=== PATIENT | male | born 1935 | race Caucasian/White ===

== ENCOUNTER → 2016-05-04 | Outpatient (CLI) | payer OTHER ==
[~2016-05-04] VITALS: Ht 177.8 cm; Wt 98.4 kg
[~2016-05-04] MED LIST: /TAMS4CA; AMLO10TA2 PO; AMLO10TAB; ASPI81TA63; ASPI81TA85 PO; BENI20TA11; CENT1TAB PO; LR 1,000 ML IV SCH; METF500T PO; VITA-115 PO
--- NOTE | 2016-05-04 13:22 | ROOR ---
Patient Name: Jamison Nicholas Procedure Date: 05/04/2016 12:35 PM Date of : 1935 Age: 80 Room: [facility] Gender: Male Note Status: Finalized Procedure: Colonoscopy Indications: Screening for colorectal malignant neoplasm, This is the patient's first colonoscopy Providers: Jamison Raman MD Referring MD: Danna Gurrola MD Requesting Provider: Medicines: Monitored Anesthesia Care Complications: No immediate complications. Procedure: Pre-Anesthesia Assessment: - Prior to the procedure, a History and Physical was performed, and patient medications and allergies were reviewed. The patient is competent. The risks and benefits of the procedure and the sedation options and risks were discussed with the patient. All questions were answered and informed consent was obtained. Patient identification and proposed procedure were verified by the physician, the nurse and the anesthesiologist in the procedure room. Mental Status Examination: alert and oriented. Airway Examination: normal oropharyngeal airway and neck mobility. CV Examination: regular rate and rhythm. Prophylactic Antibiotics: The patient does not require prophylactic antibiotics. Prior Anticoagulants: The patient has taken no previous anticoagulant or antiplatelet agents. ASA Grade Assessment: II - A patient with mild systemic disease. After reviewing the risks and benefits, the patient was deemed in satisfactory condition to undergo the procedure. The anesthesia plan was to use monitored anesthesia care (MAC). Immediately prior to administration of medications, the patient was re-assessed for adequacy to receive sedatives. The heart rate, respiratory rate, oxygen saturations, blood pressure, adequacy of pulmonary ventilation, and response to care were monitored throughout the procedure. The physical status of the patient was re-assessed after the procedure. The Colonoscope was introduced through the anus and advanced to the cecum, identified by appendiceal orifice and ileocecal valve. The colonoscopy was performed without difficulty. The patient tolerated the procedure well. The quality of the bowel preparation was good. Findings: The perianal and digital rectal examinations were normal. A few small-mouthed diverticula were found in the entire colon. Impression: - Diverticulosis in the entire examined colon. - No specimens collected. Recommendation: - Discharge patient to home. - Resume previous diet. - Continue present medications. - Return to endoscopist PRN. Jamison Raman MD 05/04/2016 1:21:45 PM Number of Addenda: 0 Note Initiated On: 05/04/2016 12:35 PM Estimated Blood Loss: Estimated blood loss: none.
[2016-05-04 13:47] VITALS: BP 111/67
== END | disposition home or self-care (01) ==
LOC: M OPP 10:37
PROVIDERS: ATTEND Surgery
DX: Z12.11 Encounter for screening for malignant neoplasm of colon (principal); K57.30 Diverticulosis of large intestine without perforation or abscess without bleeding; I12.9 Hypertensive chronic kidney disease with stage 1 through stage 4 chronic kidney disease, or unspecified chronic kidney disease; E11.9 Type 2 diabetes mellitus without complications; M19.90 Unspecified osteoarthritis, unspecified site; R06.83 Snoring; N18.3 Chronic kidney disease, stage 3 (moderate); R01.1 Cardiac murmur, unspecified; G62.9 Polyneuropathy, unspecified; Z79.84 Long term (current) use of oral hypoglycemic drugs; Z79.899 Other long term (current) drug therapy; Z87.891 Personal history of nicotine dependence; Z88.8 Allergy status to other drugs, medicaments and biological substances
CPT/HCPCS: 99156; 99157; G0121

== ENCOUNTER → 2016-08-31 | Day surgery (SDC) | payer OTHER ==
[~2016-08-31] VITALS: Ht 177.8 cm; Wt 98.0 kg
[~2016-08-31] MED LIST changes: +ACETAMINOPHEN 325 MG TAB PO PRN; +AcetaZOLAMIDE 500 MG ER CAP PO ONE; +BSS with VANC/TOB/EPI for EYE CASES IR ONE; +CEFUROXIME 1MG/0.1ML INTRACAMERAL INJ As Ordered ONE; +CYCLOPENTOLATE 2% OPHTH SOLN 2ML BTL As Ordered ONE; +CYCLOPENTOLATE 2% OPHTH SOLN 2ML BTL OD ONE; +HEALON DUET (HEALON 10MG/ML 0.55ML & HEALON ENDOCOAT 30MG/ML 0.85ML) As Ordered ONE; +KETOROLAC 0.5% OPHTH SOLN OD ONE; +LIDOCAINE 1% SDV 5 ML VIAL As Ordered ONE; +LIDOCAINE 4% INJ 5 ML AMP OU ONE; -LR 1,000 ML IV SCH; +LR 500 ML IV SCH; -METF500T PO; +METF500T13 PO; +METF500T4 PO; +MIDAZOLAM INJ 2 MG/2 ML VIAL (J2250) As Ordered ONE; +MOXIFLOXACIN IN BSS 0.25MG/0.25ML INTRACAMERAL INJ (OR EYE ONLY)(J2280) As Ordered ONE; +OFLOXACIN 0.3 % (OCUFLOX) OPTH SOL 5ML As Ordered ONE; +OFLOXACIN 0.3 % (OCUFLOX) OPTH SOL 5ML OD ONE; +PHENYLEPHRINE 2.5% OPHTH SOL 2ML As Ordered ONE; +PHENYLEPHRINE 2.5% OPHTH SOL 2ML OD ONE; +POVIDONE-IODINE 5% OPHTH PREP SOL 30ML As Ordered ONE; +PROPARACAINE 0.5% OPHTH SOL 15ML OD PRN; +TRIAMCINOLONE PRES FR 40 MG/ML 1ML(TRIESENCE)(OR EYE ONLY)(J3300 PER 1MG) As Ordered ONE; +TRIMETHOBENZAMIDE 300 MG CAP PO PRN; +TROPICAMIDE 1% OPHTH SOLN 2ML As Ordered ONE; +TROPICAMIDE 1% OPHTH SOLN 2ML OD ONE; +VALS320T PO; +fentaNYL 100 MCG/2 ML INJECTION (J3010) As Ordered ONE
[2016-08-31 09:35] VITALS: BP 154/72
== END | disposition home or self-care (01) ==
LOC: M SDC 06:42
PROVIDERS: ATTEND Ophthalmology
DX: H26.9 Unspecified cataract (principal); I10 Essential (primary) hypertension; R01.1 Cardiac murmur, unspecified; E11.9 Type 2 diabetes mellitus without complications; K42.9 Umbilical hernia without obstruction or gangrene; M17.12 Unilateral primary osteoarthritis, left knee; N28.9 Disorder of kidney and ureter, unspecified; Z79.899 Other long term (current) drug therapy; Z79.82 Long term (current) use of aspirin; Z79.84 Long term (current) use of oral hypoglycemic drugs; Z92.21 Personal history of antineoplastic chemotherapy; Z92.3 Personal history of irradiation; Z85.51 Personal history of malignant neoplasm of bladder
CPT/HCPCS: 66984; J2250; J2280; J3010; J3300; V2632

== ENCOUNTER → 2016-09-08 | Outpatient (REF) | payer OTHER ==
[~2016-09-08] MED LIST changes: -ACETAMINOPHEN 325 MG TAB PO PRN; -AcetaZOLAMIDE 500 MG ER CAP PO ONE; -BSS with VANC/TOB/EPI for EYE CASES IR ONE; -CEFUROXIME 1MG/0.1ML INTRACAMERAL INJ As Ordered ONE; -CYCLOPENTOLATE 2% OPHTH SOLN 2ML BTL As Ordered ONE; -CYCLOPENTOLATE 2% OPHTH SOLN 2ML BTL OD ONE; -HEALON DUET (HEALON 10MG/ML 0.55ML & HEALON ENDOCOAT 30MG/ML 0.85ML) As Ordered ONE; -KETOROLAC 0.5% OPHTH SOLN OD ONE; -LIDOCAINE 1% SDV 5 ML VIAL As Ordered ONE; -LIDOCAINE 4% INJ 5 ML AMP OU ONE; -LR 500 ML IV SCH; -MIDAZOLAM INJ 2 MG/2 ML VIAL (J2250) As Ordered ONE; -MOXIFLOXACIN IN BSS 0.25MG/0.25ML INTRACAMERAL INJ (OR EYE ONLY)(J2280) As Ordered ONE; -OFLOXACIN 0.3 % (OCUFLOX) OPTH SOL 5ML As Ordered ONE; -OFLOXACIN 0.3 % (OCUFLOX) OPTH SOL 5ML OD ONE; -PHENYLEPHRINE 2.5% OPHTH SOL 2ML As Ordered ONE; -PHENYLEPHRINE 2.5% OPHTH SOL 2ML OD ONE; -POVIDONE-IODINE 5% OPHTH PREP SOL 30ML As Ordered ONE; -PROPARACAINE 0.5% OPHTH SOL 15ML OD PRN; -TRIAMCINOLONE PRES FR 40 MG/ML 1ML(TRIESENCE)(OR EYE ONLY)(J3300 PER 1MG) As Ordered ONE; -TRIMETHOBENZAMIDE 300 MG CAP PO PRN; -TROPICAMIDE 1% OPHTH SOLN 2ML As Ordered ONE; -TROPICAMIDE 1% OPHTH SOLN 2ML OD ONE; -fentaNYL 100 MCG/2 ML INJECTION (J3010) As Ordered ONE
[2016-09-08 13:21] LABS: BASO # 0.1 K/mm3 (0.0-0.2); BASO % 0.7 % (0.0-1.0); EOS # 0.4 K/mm3 (0.0-0.50); EOS % 4.8 % (0.0-3.0); LARGE UNSTAINED CELL # 0.1 K/mm3 (0.0-0.4); LARGE UNSTAINED CELL % 1.4 % (0.0-4.0); LYMPH # 1.3 K/mm3 (1.5-4.5); LYMPH % 14.2 % (24.0-44.0); MEAN CORPUSCULAR HEMOGLOBIN 31.9 pg (27.0-33.0); MEAN CORPUSCULAR HGB CONC 34.2 g/dl (32.0-36.5); MEAN CORPUSCULAR VOLUME 93.1 fl (80.0-96.0); MONO # 0.6 K/mm3 (0.0-0.8); MONO % 6.6 % (0.0-5.0); NEUTROPHILS # 6.2 K/mm3 (1.8-7.7); NEUTROPHILS % 72.3 % (36.0-66.0); PLATELET COUNT, AUTOMATED 238 k/mm3 (150-450); RED CELL DISTRIBUTION WIDTH 13.1 % (11.5-14.5); WHITE BLOOD COUNT 8.6 K/mm3 (4.0-10.0)
[2016-09-08 14:18] LABS: ALBUMIN/GLOBULIN RATIO 1.25 (1.00-1.93); BILIRUBIN,TOTAL 0.7 MG/DL (0.2-1.0); CALCIUM LEVEL 9.3 MG/DL (8.8-10.2); CREATININE FOR GFR 1.52 MG/DL (0.70-1.30); POTASSIUM SERUM 4.4 MEQ/L (3.5-5.1); TOTAL PROTEIN 7.2 GM/DL (6.4-8.2)
== END ==
LOC: M LABDRAW1 12:53
PROVIDERS: ATTEND Family Medicine
DX: E11.22 Type 2 diabetes mellitus with diabetic chronic kidney disease (principal)

== ENCOUNTER → 2016-09-20 | Day surgery (SDC) | payer OTHER ==
[~2016-09-20] VITALS: Ht 179.1 cm; Wt 101.2 kg
[~2016-09-20] MED LIST changes: +ACETAMINOPHEN 325 MG TAB PO PRN; +AcetaZOLAMIDE 500 MG ER CAP PO ONE; +BSS with VANC/TOB/EPI for EYE CASES IR ONE; +CYCLOPENTOLATE 2% OPHTH SOLN 2ML BTL OS ONE; +HEALON DUET (HEALON 10MG/ML 0.55ML & HEALON ENDOCOAT 30MG/ML 0.85ML) As Ordered ONE; +KETOROLAC 0.5% OPHTH SOLN OS ONE; +LIDOCAINE 1% SDV 5 ML VIAL As Ordered ONE; +LIDOCAINE 4% INJ 5 ML AMP OU ONE; +LR 1,000 ML IV ONE; +MIDAZOLAM INJ 2 MG/2 ML VIAL (J2250) As Ordered ONE; +MOXIFLOXACIN IN BSS 0.25MG/0.25ML INTRACAMERAL INJ (OR EYE ONLY)(J2280) As Ordered ONE; +OFLOXACIN 0.3 % (OCUFLOX) OPTH SOL 5ML OS ONE; +PHENYLEPHRINE 2.5% OPHTH SOL 2ML OS ONE; +POVIDONE-IODINE 5% OPHTH PREP SOL 30ML As Ordered ONE; +PROPARACAINE 0.5% OPHTH SOL 15ML OS PRN; +TRIAMCINOLONE PRES FR 40 MG/ML 1ML(TRIESENCE)(OR EYE ONLY)(J3300 PER 1MG) As Ordered ONE; +TRIMETHOBENZAMIDE 300 MG CAP PO PRN; +TROPICAMIDE 1% OPHTH SOLN 2ML OS ONE; +fentaNYL 100 MCG/2 ML INJECTION (J3010) As Ordered ONE
[2016-09-20 12:25] VITALS: BP 125/59
== END | disposition home or self-care (01) ==
LOC: M SDC 10:00
PROVIDERS: ATTEND Ophthalmology
DX: H25.9 Unspecified age-related cataract (principal); E11.22 Type 2 diabetes mellitus with diabetic chronic kidney disease; I10 Essential (primary) hypertension; Z92.3 Personal history of irradiation; I73.9 Peripheral vascular disease, unspecified; Z79.82 Long term (current) use of aspirin; Z79.899 Other long term (current) drug therapy
CPT/HCPCS: 66984; 67515; J2250; J2280; J3010; J3300; V2632

== ENCOUNTER → 2017-05-24 | Outpatient (REF) | payer OTHER | LOC: M SMT 17:09 | DX: Z08 Encounter for follow-up examination after completed treatment for malignant neoplasm (principal); Z85.51 Personal history of malignant neoplasm of bladder | CPT/HCPCS: 88108 ==

== ENCOUNTER → 2017-11-22 | Outpatient (REF) | payer OTHER ==
[2017-11-22 13:42] LABS: BASO # 0.1 10^3/uL (0.0-0.2); BASO % 0.8 % (0.0-1.0); EOS # 0.5 10^3/uL (0.0-0.50); EOS % 5.4 % (0.0-3.0); HEMATOCRIT 45.7 % (42.0-52.0); HEMOGLOBIN 15.6 g/dl (13.5-17.5); IMMATURE GRANULOCYTE % 0.4 % (0-3.0); LYMPH # 1.2 10^3/uL (1.5-4.5); LYMPH % 14.3 % (24.0-44.0); MEAN CORPUSCULAR HEMOGLOBIN 31.3 pg (27.0-33.0); MEAN CORPUSCULAR HGB CONC 34.1 g/dl (32.0-36.5); MEAN CORPUSCULAR VOLUME 91.6 fl (80.0-96.0); MONO # 0.7 10^3/uL (0.0-0.8); MONO % 8.2 % (0.0-5.0); NEUTROPHILS # 5.9 10^3/uL (1.8-7.7); NEUTROPHILS % 70.9 % (36.0-66.0); PLATELET COUNT, AUTOMATED 271 10^3/uL (150-450); RED BLOOD COUNT 4.99 10^6/uL (4.30-6.10); RED CELL DISTRIBUTION WIDTH 13.2 % (11.5-14.5); WHITE BLOOD COUNT 8.3 10^3/uL (4.0-10.0)
[2017-11-22 14:14] LABS: ALBUMIN/GLOBULIN RATIO 1.21 (1.00-1.93); ALKALINE PHOSPHATASE 72 U/L (45-117); ALT/SGPT 72 U/L (12-78); ANION GAP 11 MEQ/L (8-16); AST/SGOT 52 U/L (7-37); BILIRUBIN,TOTAL 0.8 MG/DL (0.2-1.0); BLOOD UREA NITROGEN 31 MG/DL (7-18); CALCIUM LEVEL 9.3 MG/DL (8.8-10.2); CARBON DIOXIDE LEVEL 23 MEQ/L (21-32); CHLORIDE LEVEL 104 MEQ/L (98-107); CHOLESTEROL LEVEL 171 MG/DL (<200); CHOLESTEROL RISK RATIO 3.562 (<5); CREATININE FOR GFR 1.55 MG/DL (0.70-1.30); GLOMERULAR FILTRATION RATE 45.8 (>35); GLUCOSE, FASTING 110 MG/DL (70-100); HDL CHOLESTEROL 48 MG/DL (>40); LDL CHOLESTEROL 70 MG/DL (<100); NON-HDL-C 123 MG/DL; POTASSIUM SERUM 4.1 MEQ/L (3.5-5.1); SODIUM LEVEL 138 MEQ/L (136-145); TOTAL PROTEIN 7.3 GM/DL (6.4-8.2); TRIGLYCERIDES LEVEL 263 MG/DL (<150)
[2017-11-22 15:07] LABS: MAU/CREAT RATIO 241.5 MCG/MG (0.0-30.0)
[2017-11-22 15:12] LABS: ESTIMATED AVERAGE GLUCOSE 117 MG/DL (60-110); HEMOGLOBIN A1c 5.7 %
== END ==
LOC: M LABDRAW1 13:29
DX: E11.22 Type 2 diabetes mellitus with diabetic chronic kidney disease (principal)
CPT/HCPCS: 80053

== ENCOUNTER 2018-04-24 20:04 | Emergency (ER) | payer MEDICARE, OTHER ==
[~2018-04-24] VITALS: Ht 175.3 cm; Wt 100.0 kg
[~2018-04-24 20:04] MED LIST changes: -ACETAMINOPHEN 325 MG TAB PO PRN; -AMLO10TA2 PO; +AMLO10TA5 PO; -AcetaZOLAMIDE 500 MG ER CAP PO ONE; -BSS with VANC/TOB/EPI for EYE CASES IR ONE; -CYCLOPENTOLATE 2% OPHTH SOLN 2ML BTL OS ONE; -HEALON DUET (HEALON 10MG/ML 0.55ML & HEALON ENDOCOAT 30MG/ML 0.85ML) As Ordered ONE; -KETOROLAC 0.5% OPHTH SOLN OS ONE; -LIDOCAINE 1% SDV 5 ML VIAL As Ordered ONE; -LIDOCAINE 4% INJ 5 ML AMP OU ONE; -LR 1,000 ML IV ONE; -MIDAZOLAM INJ 2 MG/2 ML VIAL (J2250) As Ordered ONE; -MOXIFLOXACIN IN BSS 0.25MG/0.25ML INTRACAMERAL INJ (OR EYE ONLY)(J2280) As Ordered ONE; -OFLOXACIN 0.3 % (OCUFLOX) OPTH SOL 5ML OS ONE; -PHENYLEPHRINE 2.5% OPHTH SOL 2ML OS ONE; -POVIDONE-IODINE 5% OPHTH PREP SOL 30ML As Ordered ONE; -PROPARACAINE 0.5% OPHTH SOL 15ML OS PRN; -TRIAMCINOLONE PRES FR 40 MG/ML 1ML(TRIESENCE)(OR EYE ONLY)(J3300 PER 1MG) As Ordered ONE; -TRIMETHOBENZAMIDE 300 MG CAP PO PRN; -TROPICAMIDE 1% OPHTH SOLN 2ML OS ONE; -fentaNYL 100 MCG/2 ML INJECTION (J3010) As Ordered ONE
[2018-04-24] MEDS ORDERED: NAPROXEN 250 MG TAB PO ONE (20:15)
[2018-04-24] MEDS ORDERED: NAPR-50 PO (21:32)
[2018-04-24] MEDS ORDERED: ROLLMIS2 XX (21:32)
[2018-04-24 22:19] VITALS: BP 130/56
--- NOTE | 2018-04-25 01:43 | REP ---
Clinical: Pain and swelling. Technique: AP, lateral, bilateral oblique and sunrise views of the left knee. Findings: Advanced tricompartmental osteoarthritic degenerative changes are appreciated. Findings include subchondral sclerosis, osteophytosis, chondrocalcinosis and predominately medial joint space narrowing. The patella has a bipartite appearance versus old fracture. There is no evidence for acute fracture or dislocation. Lateral view suggests a moderate effusion. Associated peripheral vascular disease identified. Impression: Advanced osteoarthritic degenerative changes. Lateral view demonstrates moderate effusion. No acute fracture or dislocation. Electronically Signed by Jb Duran MD 04/25/2018 01:35 A
== END 2018-04-24 22:21 | disposition home or self-care (01) ==
LOC: M ED 20:04 → EDBD 20:04 → M ED 22:21
DX: M17.12 Unilateral primary osteoarthritis, left knee (principal); M25.462 Effusion, left knee; I11.9 Hypertensive heart disease without heart failure; E11.9 Type 2 diabetes mellitus without complications; Z79.899 Other long term (current) drug therapy; Z79.82 Long term (current) use of aspirin; Z79.84 Long term (current) use of oral hypoglycemic drugs

== ENCOUNTER → 2018-07-05 | Outpatient (REF) | payer MEDICARE ==
[~2018-07-05] MED LIST changes: -/TAMS4CA; +FLOM0.4C39; +NAPR-837 PO; +ROLLMIS2 XX
[2018-07-05 19:06] LABS: ALBUMIN 3.9 GM/DL (3.2-5.2); PERCENT SATURATION 30.6 % (19.7-50.0)
== END ==
LOC: M LABDRAW1 14:18
PROVIDERS: ATTEND Orthopaedic Surgery Adult Reconstructive Orthopaedic Surgery
DX: M25.562 Pain in left knee (principal)

== ENCOUNTER → 2018-08-24 | Outpatient (CLI) | payer MEDICARE ==
--- NOTE | 2018-08-24 17:47 | ECHO ---
DATE OF PROCEDURE: 08/24/2018 REFERRING PHYSICIAN: Dr. Danna Gurrola INDICATION: Heart murmur. Height 5 feet 10 inches, weight 224 pounds. DIMENSIONS: IVS: 1.1 LV: 4.7 LVPW: 1.1 LA: 3.0 Aorta: 3.3 IVC: 2.3 Mitral E wave velocity: 93 A wave: 135 E prime septal: 5.8 E prime lateral: 7.5 FINDINGS: The study is of acceptable technical quality. The patient is in sinus rhythm. Left ventricle is of normal size and systolic function. I estimate left ventricular ejection fraction (LVEF) around 65-70%. No segmental wall motion abnormalities are noted. Right ventricle appears normal. Left atrium appears at least mildly enlarged. Right atrium appears normal. Aortic valve is heavily sclerotic. By 2D imaging, there is at least mild restriction of cusp mobility. Mitral valve also exhibits degenerative abnormalities with mitral annular calcifications. Tricuspid and pulmonic valves were poorly visualized but grossly appear normal. No pericardial effusion is noted. Inferior vena cava is dilated. I cannot comment on it collapse with respiration as it has not been documented. Aortic root appears normal. Aortic arch and abdominal aorta were not visualized. Doppler interrogation of aortic valve reveals trace insufficiency and approximately moderate stenosis (mean gradient 26, peak gradient 44, calculated SIMI 1.1 cm2). No additional significant valvular disease. Conclusions: 1. The study is of acceptable technical quality 2. Normal LV size with hyperdynamic LV systolic function and grade I diastolic dysfunction. 3. Moderate aortic stenosis (mean gradient 26mmHg, calculated SIMI 1.1cm 2). 4. No further valvular disease. 5. Possibly elevated central venous pressure. 6. Unable to determine pulmonary artery pressure. COMMENT: Subacute bacterial endocarditis (SBE) is not recommended. Follow up in 1 year or with development of symptoms is recommended. [facility]
== END ==
LOC: M CARPUL 11:16
PROVIDERS: ATTEND Family Medicine
DX: I35.0 Nonrheumatic aortic (valve) stenosis (principal); R01.1 Cardiac murmur, unspecified

== ENCOUNTER → 2019-02-13 | Outpatient (REF) | payer MEDICARE ==
[~2019-02-13] MED LIST changes: +METF-791 PO; -METF500T4 PO
[2019-02-13 16:43] LABS: BASO # 0.1 10^3/uL (0.0-0.2); BASO % 1.2 % (0.0-1.0); EOS # 0.9 10^3/uL (0.0-0.5); EOS % 8.4 % (0.0-3.0); HEMOGLOBIN 15.2 g/dl (13.5-17.5); LYMPH # 1.3 10^3/uL (1.5-5.0); LYMPH % 12.9 % (24.0-44.0); MEAN CORPUSCULAR HEMOGLOBIN 30.1 pg (27.0-33.0); MEAN CORPUSCULAR VOLUME 91.1 fl (80.0-96.0); MONO # 0.7 10^3/uL (0.0-0.8); NEUTROPHILS # 7.1 10^3/uL (1.5-8.5); NEUTROPHILS % 70.1 % (36.0-66.0); PLATELET COUNT, AUTOMATED 292 10^3/uL (150-450); RED BLOOD COUNT 5.05 10^6/uL (4.30-6.10); WHITE BLOOD COUNT 10.2 10^3/uL (4.0-10.0)
[2019-02-13 16:50] LABS: ALBUMIN 3.9 GM/DL (3.2-5.2); BILIRUBIN,TOTAL 0.7 MG/DL (0.2-1.0); CALCIUM LEVEL 9.6 MG/DL (8.8-10.2); CHOLESTEROL RISK RATIO 3.744 (<5); CREATININE FOR GFR 1.65 MG/DL (0.70-1.30); GLOMERULAR FILTRATION RATE 42.5 (>35); POTASSIUM SERUM 4.5 MEQ/L (3.5-5.1); TOTAL PROTEIN 7.3 GM/DL (6.4-8.2)
[2019-02-13 17:10] LABS: CREATININE, URINE 88.6 MG/DL; MAU/CREAT RATIO 200.9 MCG/MG (0.0-30.0)
== END ==
LOC: M LABDRAW1 15:50
PROVIDERS: ATTEND Family Medicine
DX: E11.69 Type 2 diabetes mellitus with other specified complication (principal)

== ENCOUNTER → 2020-03-31 | Outpatient (REF) | payer MEDICARE ==
[~2020-03-31] MED LIST changes: -AMLO10TA5 PO; +AMLO1TAB25 PO; -ASPI81TA85 PO; +ASPI81TA86 PO; -METF-791 PO; +METF-838 PO; -VALS320T PO; +VALS320T2 PO
[2020-03-31 18:39] LABS: HEMOGLOBIN A1c 5.7 %
[2020-03-31 18:43] LABS: ALBUMIN 3.8 GM/DL (3.2-5.2); BILIRUBIN,TOTAL 0.5 MG/DL (0.2-1.0); CALCIUM LEVEL 9.6 MG/DL (8.8-10.2); CHOLESTEROL RISK RATIO 4.25 (<5); CREATININE FOR GFR 1.77 MG/DL (0.70-1.30); GLOMERULAR FILTRATION RATE 39.1 (>35); POTASSIUM SERUM 4.6 MEQ/L (3.5-5.1)
[2020-03-31 19:17] LABS: MAU/CREAT RATIO 425.7 MCG/MG (0.0-30.0)
== END ==
LOC: M LABDRWAD 17:44
PROVIDERS: ATTEND Physician Assistant Medical
DX: E11.69 Type 2 diabetes mellitus with other specified complication (principal)

== ENCOUNTER 2020-06-14 05:06 | Inpatient (IN) | payer MEDICARE ==
[~2020-06-14] VITALS: Ht 177.8 cm; Wt 103.8 kg
[2020-06-14] MEDS ORDERED: ONDANSETRON 4MG/2ML VIAL IV ONE (05:55)
[2020-06-14] MEDS ORDERED: MORPHINE 4 MG/ML 1ML VIAL/SYRINGE (J2270) IV ONE (05:55)
[2020-06-14] MEDS ORDERED: GI COCKTAIL 50ML BTL(HYOSCYAMINE/MAALOX/LIDOCAINE VISCOUS)(1:3:1) PO ONE (05:55)
[2020-06-14 06:06] LABS: BASO # 0.1 10^3/uL (0.0-0.2); BASO % 0.6 % (0.0-1.0); EOS % 0.1 % (0.0-3.0); HEMATOCRIT 49.5 % (42.0-52.0); HEMOGLOBIN 16.4 g/dl (13.5-17.5); LYMPH # 0.5 10^3/uL (1.5-5.0); LYMPH % 4.8 % (24.0-44.0); MEAN CORPUSCULAR HEMOGLOBIN 30.5 pg (27.0-33.0); MEAN CORPUSCULAR HGB CONC 33.1 g/dl (32.0-36.5); MONO # 0.2 10^3/uL (0.0-0.8); MONO % 2.1 % (2.0-8.0); NEUTROPHILS # 9.7 10^3/uL (1.5-8.5); PLATELET COUNT, AUTOMATED 257 10^3/uL (150-450); RED BLOOD COUNT 5.38 10^6/uL (4.30-6.10); WHITE BLOOD COUNT 10.5 10^3/uL (4.0-10.0)
[2020-06-14 06:18] LABS: ALT/SGPT 35 U/L (12-78); AMYLASE 77 U/L (25-115); BILIRUBIN,DIRECT 0.1 MG/DL (0.0-0.2); BILIRUBIN,TOTAL 0.4 MG/DL (0.2-1.0); BLOOD UREA NITROGEN 32 MG/DL (7-18); CARBON DIOXIDE LEVEL 25 MEQ/L (21-32); CHLORIDE LEVEL 106 MEQ/L (98-107); CK-MB VALUE MASS 8.4 NG/ML (<3.6); CPK CREATINE PHOSPHOKINASE 565 U/L (39-308); CREATININE FOR GFR 1.66 MG/DL (0.70-1.30); GLOMERULAR FILTRATION RATE 42.1 (>35); GLUCOSE, FASTING 192 MG/DL (70-100); LIPASE 231 U/L (73-393); MB/CK RELATIVE INDEX 1.49 (< OR =4); POTASSIUM SERUM 4.2 MEQ/L (3.5-5.1); SODIUM LEVEL 139 MEQ/L (136-145); TOTAL PROTEIN 7.6 GM/DL (6.4-8.2); TROPONIN I < 0.02 NG/ML (< 0.10)
[2020-06-14] MEDS ORDERED: NS 1,000 ML IV ONE (06:25)
[2020-06-14] MEDS ORDERED: ISOVUE-370 76% 100ML VIAL As Ordered ONE (06:31)
--- NOTE | 2020-06-14 07:49 | REPVR ---
PROCEDURE INFORMATION: Exam: CT Abdomen With Contrast Exam date and time: 06/14/2020 5:51 AM Age: 84 years old Clinical indication: Abdominal pain; Generalized; Additional info: Abdominal pain and ttp midline, known ventral hernia TECHNIQUE: Imaging protocol: Computed tomography images of the abdomen with intravenous contrast. Radiation optimization: All CT scans at this facility use at least one of these dose optimization techniques: automated exposure control; mA and/or kV adjustment per patient size (includes targeted exams where dose is matched to clinical indication); or iterative reconstruction. Contrast material: ISO; Contrast volume: 75 ml; Contrast route: INTRAVENOUS (IV); COMPARISON: No relevant prior studies available. FINDINGS: Lungs: There is bilateral basilar, right more than left atelectatic changes versus infiltrates with peribronchial thickening. Heart: There is significant calcification of the mitral annulus and some calcification at the aortic root. Liver: The liver is hypoattenuated. Gallbladder and bile ducts: Normal. No calcified stones. No ductal dilation. Pancreas: Normal. No ductal dilation. Spleen: There are some punctate splenic calcifications. Adrenals: Normal. No mass. Kidneys and ureters: There is left renal atrophy with significant dilatation of the left renal pelvis and nondistended urinary bladder possibly due to UPJ obstruction. There is 3 mm right upper renal pole stone versus vascular calcification. Stomach and bowel: There is mild transverse and severe descending and sigmoid colon diverticulosis. Intraperitoneal space: Unremarkable. No free air. No significant fluid collection. Lymph nodes: Unremarkable. No enlarged lymph nodes. Vasculature: Unremarkable. No abdominal aortic aneurysm. Bladder: There is moderate distention of the urinary bladder. There is nonspecific thickening versus layering material in the posterior urinary bladder in the region of the trigone. There is 4.5 cm right posterolateral urinary bladder wall diverticula. Reproductive: The prostate gland is enlarged measuring 5.3 by 3.0 cm with prominence in the region of the proximal prostatic urethra. Bones/joints: There is significant multilevel lumbar and thoracic spine DJD. Soft tissues: There is 5.5 x 3.2 cm umbilical fat containing hernia. There is small left inguinal fat containing hernia. IMPRESSION: 1. Enlarged prostate gland. Correlate with clinical history, physical exam and PSA level. 2. Moderate to significant distention of the urinary bladder with right posterolateral urinary bladder wall diverticulum. Correlate for clinically for bladder outlet obstruction. 3. Prominent prostatic urethra which could be due to obstruction from the enlarged prostate gland and outlet obstruction or secondary to TURP changes. 4. Thickening vs faint layering filling defect in the posterior urinary bladder in the region of the trigone. This could represent blood or filling defect. Correlation with urinalysis, bladder ultasound and,or direct visualization with cystoscopy are suggested. 5. 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 6. Nonobstructing 3 mm right upper renal pole stone versus vascular calcification. 7. Mild fatty infiltration of the liver. 8. 5.5 x 3.2 cm umbilical fat containing hernia. 9. Small left inguinal fat containing hernia. 10. Mild transverse and severe descending and sigmoid colon diverticulosis. 11. Significant bilateral lower lobes, right more than left atelectatic changes versus infiltrates with peribronchial thickening. Electronically signed by: Alex Spence On 06/14/2020 07:49:42 AM
[2020-06-14] MEDS ORDERED: COMBIVENT RESPIMAT 100-20MCG INHALER 4GM INH STA (08:58)
[2020-06-14] MEDS ORDERED: LIDOCAINE 2% 5ML JELLY UROJET TOP ONE (09:20)
--- NOTE | 2020-06-14 09:35 | ECGEPIP ---
[facility] - ED Test Date: 2020-06-14 Pat Name: CÉSAR SALGADO Department: Room: - Gender: Male [employer] Operator: RETA : 1935 Requested By: Reno Felipe Order Number: [id number] Reading MD: Iftikhar Chicas Measurements Intervals [place] Rate: 95 P: 44 IN: 192 QRS: -40 QRSD: 102 T: 56 QT: 374 QTc: 469 Interpretive Statements Normal sinus rhythm Left axis deviation POOR R WAVE PROGRESSION Minimal voltage criteria for LVH, may be normal variant ( Ben product ) Nonspecific ST abnormality NO PRIORS FOR COMPARISON Electronically Signed on 06-14-2020 9:35:33 EDT by Iftikhar Chicas
[2020-06-14 09:39] LABS: NT-PRO BNP 555 PG/ML (<450)
[2020-06-14] MEDS ORDERED: LevoFLOXacin IV 750 MG in IV 1 EA IV ONE (09:50)
--- NOTE | 2020-06-14 10:09 | REP ---
INDICATION: hypoxia. COMPARISON: 10/11/2007. TECHNIQUE: SINGLE PORTABLE AP VIEW OF THE CHEST WAS PERFORMED. FINDINGS: There is very mild patchy parenchymal opacity in each lung base representing very mild atelectasis/infiltrate. There is mild cardiomegaly. There is mild calcification and ectasia of the thoracic aorta. Visualized osseous structures appear unremarkable. IMPRESSION: Very mild bibasilar atelectasis/infiltrate. Mild cardiomegaly. <Electronically signed by Matty Fernández > 06/14/20 [id number]
[2020-06-14] MEDS ORDERED: ASPI81TA26 PO (10:33)
[2020-06-14] MEDS ORDERED: CHOL400T PO (10:33)
[2020-06-14] MEDS ORDERED: GLUCOSE 4GM CHEW TABLET PO PRN (10:35)
[2020-06-14] MEDS ORDERED: DEXTROSE 50% 50 ML SYRINGE IV PRN (10:35)
[2020-06-14] MEDS ORDERED: GLUCAGON INJ 1MG VIAL SC PRN (10:35)
[2020-06-14] MEDS ORDERED: NS 1,000 ML IV SCH (11:05)
--- NOTE | 2020-06-14 11:19 | HPEPDOC ---
General Date of Admission Jun 14, 2020 Date of Service: Jun 14, 2020 Chief Complaint The patient is a 84-year-old male admitted with a reason for visit of Abd Pain. Source: Patient, RN/MD History of Present Illness Mr. Nicholas is an 84 year old male with DM and history of bladder cancer who presents with abdominal pain, but then found to have hypoxia 2/2 pneumonia. Last evening, he had a milkshake, then about 30mins later at 7:30PM he started to have nausea. He went home and had nonbloody emesis multiple times. He also developed sharp and continuous, epigastric abdominal pain. Pain was worse with food. He came to the ED for evaluation. He had a CT abdomen and pelvis with IV contrast which demonstrated significant bladder distension. Soto catheter was placed which drained 1200mL of clear liquid urine. There was no blood. UA positive for 1+ blood and microscopy had 2 RBC which may be related to Soto trauma. His abdominal pain resolved He stood up and he desaturated down to 86%. He required 2L of oxygen to maintain saturation. CT abd/pelvis did demonstrate bibasilar infiltrate vs atelectasis. CXR demonstrates same. He does have leukocytosis with neutrophil predominance. Denies sick contacts. He had Moderna COVID vaccination in April and May. Patient will be admitted for hypoxia secondary to pneumonia Home Medications Scheduled Amlodipine Besylate (Amlodipine Besylate) 10 Mg Tab, 10 MG PO DAILY, (Reported) Aspirin (Aspirin EC) 81 Mg Tablet.dr, 81 MG PO DAILY, (Reported) Cholecalciferol (Vitamin D3) (Vitamin D3) 10 Mcg Tablet, 10 MCG PO DAILY, (Reported) Metformin HCl (Metformin HCl ER) 500 Mg Tab, 500 MG PO DAILY, (Reported) AFTER DINNER Multivit-Min/FA/Lycopen/Lutein (Centrum Silver Tablet) 1 Tab Tab, 1 TAB PO QAM, (Reported) Valsartan/Hydrochlorothiazide (Valsartan-Hctz 320-12.5 mg Tab) 1 Tab Tab, 1 TAB PO QHS, (Reported) Allergies Coded Allergies: No Known Allergies (Unverified , 09/20/16) Past Medical History Medical History 1. Hypertension 2. Arthritis 3. Non-insulin dependent diabetes mellitus 4. Bladder cancer Surgical History 1. Cystoscopy 2. Left knee replaced Family History Father: at 38 yo. from PNA Mother: at 78 yo. Unknown cause to passing Social History * Smoker: former Smoker (Quit in 2012. Smoked Cigars) Alcohol: Denies Drugs: denies A-FIB/CHADSVASC A-FIB History Current/History of A-Fib/PAF?: No Review of Systems Constitutional: Denies: Chills, Fever Eyes: Denies: Vision change ENT: Denies: Sore Throat Skin: Denies: Rash Pulmonary: Denies: Dyspnea, Cough Cardiovascular: Denies: Chest Pain Gastrointestinal: Reports: Nausea (now resolved), Vomiting (multiple times), Abdominal Pain (now resolved) Genitourinary: Denies: Dysuria Hematologic: Denies: Bruising Neurological: Denies: Numbness Psych: Denies: Anxiety, Depression Physical Examination General Exam: Positive: Alert, Cooperative Eye Exam: Positive: EOMI; Negative: Sclera icteric ENT Exam: Positive: Atraumatic Neck Exam: Positive: Supple Chest Exam: Positive: Diminished, Other (coarse) Heart Exam: Positive: Rate Normal, Regular Rhythm, Murmurs (Known murmur) Abdomen Exam: Positive: Normal bowel sounds, Soft, Other (Umbilical hernia); Negative: Tenderness Extremity Exam: Negative: Edema Neuro Exam: Positive: Normal Speech, Cranial Nerves 3-12 NL Psych Exam: Positive: Mental status NL, Mood NL Vital Signs Vital Signs Date Time Temp Pulse Resp B/P (MAP) Pulse Ox O2 Delivery O2 Flow Rate FiO2 06/14/20 07:38 97.7 90 16 94 Nasal Cannula 2.0 06/14/20 07:30 161/72 (101) Laboratory Data Labs 24H Laboratory Tests 2 06/14/20 05:29: Immature Granulocyte % (Auto) 0.4, Neutrophils (%) (Auto) 92.0H, Lymphocytes (%) (Auto) 4.8L, Monocytes (%) (Auto) 2.1, Eosinophils (%) (Auto) 0.1, Basophils (%) (Auto) 0.6, Neutrophils # (Auto) 9.7H, Lymphocytes # (Auto) 0.5L, Monocytes # (Auto) 0.2, Eosinophils # (Auto) 0.0, Basophils # (Auto) 0.1, Nucleated Red Bl ood Cells % (auto) 0.0, Anion Gap 8, Glomerular Filtration Rate 42.1, Lactic Acid Level 2.7*H, Calcium Level 9.0, Total Bilirubin 0.4, Direct Bilirubin 0.1, Aspartate Amino Transf (AST/SGOT) 31, Alanine Aminotransferase (ALT/SGPT) 35, Alkaline Phosphatase 96, Total Creatine Kinase 565H, Creatine Kinase MB 8.4H, Creatine Kinase MB Relative Index 1.49, Troponin I < 0.02, ZD-Ljp-Y-Type Natriuretic Peptide 555H, Total Protein 7.6, Albumin 4.0, Albumin/Globulin Ratio 1.1, Amylase Level 77, Lipase 231 06/14/20 09:23: Urine Color YELLOW, Urine Appearance HAZY, Urine pH 7.0, Urine Specific [place]romas 1.025, Urine Protein 2+H, Urine Glucose (UA) NEGATIVE, Urine Ketones NEGATIVE, Urine Blood 1+H, Urine Nitrite NEGATIVE, Urine Bilirubin NEGATIVE, Urine Urobilinogen 0.2, Urine Leukocyte Esterase 1+H, Urine WBC (Auto) 16H, Urine RBC (Auto) 2, Urine Hyaline Casts (Auto) 0, Urine Bacteria (Auto) NEGATIVE, Urine Squamous Epithelial Cells 0, Urine Sperm (Auto) CBC/BMP Laboratory Tests 06/14/20 05:29 Microbiology Microbiology 06/14/20 Respiratory Virus Panel (PCR) ([facility]) - Final, Complete 06/14/20 Urine Culture, Received Pending 06/14/20 Blood Culture, Received Pending 06/14/20 Blood Culture, Received Pending Assessment/Plan Mr. Nicholas is an 84 year old male with DM and history of bladder cancer who presents with abdominal pain, but then found to have hypoxia 2/2 pneumonia. Patient will be given supplemental oxygen for hypoxia and wean as tolerated. Patient will also be started on renally dosed levofloxacin for the pneumonia. Otherwise, he does have acute urinary retention. Placed catheter and tamsulosin. Patient has seen urology in past and will most likely need to follow up with Urology outpatient. Plan / VTE VTE Prophylaxis Ordered?: Yes Plan Plan 1. Hypoxia 2/2 CAP -Leukocytosis with neurophil predominance and hypoxia -Bibasilar infiltrate -Supplemental oxygen and wean as tolerated -Renally dosed levofloxacin 2. Abdominal pain -Resolved after draining bladder 3. Acute urinary retention -Soto placed and drained 1200mL -Patient will need to follow up with urology outpatient -Start tamsulosin 4. Hypertension -Continue amlodipine, HCTZ, and valsartan 5. CKD -Creatinine at baseline -IVF as patient had contrast study today 6. DM -Hold metformin -Insulin sliding scale 7. DVT ppx -Heparin subQ due to CKD Disposition: pending improvement in respiratory status VERONICA GILL DO Jun 14, 2020 11:19
[2020-06-14] MEDS: ASPIRIN 81MG ENTERIC TABLET PO SCH (11:28)
[2020-06-14] MEDS: MULTIVITAMINS/MINERALS THERAP 1 TAB PO SCH (11:28)
[2020-06-14] MEDS: HumaLOG INSULIN (NovoLOG) PER UNIT SC SCH ×3 (12:00→20:01)
[2020-06-14 13:00] VITALS: BP 137/76
[2020-06-14] MEDS: HEPARIN SOD (PORCINE) 5000UNITS/ML 1ML VIAL/SYRINGE SQ SCH ×2 (16:49→20:51)
[2020-06-14] MEDS ORDERED: NS 500 ML IV ONE (18:25)
[2020-06-14] MEDS: ONDANSETRON 4MG/2ML VIAL IV PRN (18:50)
[2020-06-14] MEDS: hydroCHLOROthiazide 12.5 MG CAPSULE PO SCH (20:50)
[2020-06-14] MEDS: VALSARTAN 80 MG TAB (DIOVAN) PO SCH (20:50)
[2020-06-14] MEDS: TAMSULOSIN 0.4 MG CAP PO SCH (20:51)
[2020-06-14 22:00] VITALS: BP 120/67
[2020-06-15 06:00] VITALS: BP 123/66
[2020-06-15 06:10] LABS: HEMATOCRIT 46.6 % (42.0-52.0); HEMOGLOBIN 15.6 g/dl (13.5-17.5); MEAN CORPUSCULAR HEMOGLOBIN 30.8 pg (27.0-33.0); MEAN CORPUSCULAR HGB CONC 33.5 g/dl (32.0-36.5); MEAN CORPUSCULAR VOLUME 92.1 fl (80.0-96.0); PLATELET COUNT, AUTOMATED 239 10^3/uL (150-450); RED BLOOD COUNT 5.06 10^6/uL (4.30-6.10); WHITE BLOOD COUNT 16.5 10^3/uL (4.0-10.0)
[2020-06-15 06:28] LABS: CREATININE FOR GFR 1.6 MG/DL (0.70-1.30); POTASSIUM SERUM 3.9 MEQ/L (3.5-5.1)
[2020-06-15] MEDS: HumaLOG INSULIN (NovoLOG) PER UNIT SC SCH ×5 (07:30→21:00)
[2020-06-15] MEDS: MULTIVITAMINS/MINERALS THERAP 1 TAB PO SCH (08:21)
[2020-06-15] MEDS: ASPIRIN 81MG ENTERIC TABLET PO SCH (08:21)
[2020-06-15] MEDS: HEPARIN SOD (PORCINE) 5000UNITS/ML 1ML VIAL/SYRINGE SQ SCH ×3 (08:22→21:09)
[2020-06-15] MEDS: ONDANSETRON 4MG/2ML VIAL IV PRN (08:26)
[2020-06-15] MEDS ORDERED: MIRALAX *UNIT DOSE* 17GM PACKET PO PRN (09:15)
[2020-06-15] MEDS ORDERED: FUROSEMIDE 20MG/2ML VIAL (J1940) IV ONE (09:15)
[2020-06-15] MEDS: DOCUSATE SODIUM 100MG CAPSULE PO SCH ×2 (09:55→21:08)
[2020-06-15] MEDS: DOXYCYCLINE HYCLATE 100 MG in D5W MINI-BAG PLUS 100 ML IV SCH ×2 (09:55→21:08)
[2020-06-15] MEDS: cefTRIAXone SOD 1 GM in D5W MINI-BAG PLUS 50 ML IV SCH (11:58)
[2020-06-15 14:00] VITALS: BP 140/62
--- NOTE | 2020-06-15 18:49 | IPNPDOC ---
Subjective Date Seen The patient was seen on 06/15/20. Subjective Chief Complaint/HPI Mr. Nicholas is an 84 year old male with DM and history of bladder cancer who presents with abdominal pain, but then found to have hypoxia 2/2 pneumonia. This morning, he denies any chest pain or dyspnea. He still required 3L this morning. but is being weaned throughout the day. Objective Physical Examination General Exam: Positive: Alert, Cooperative Eye Exam: Positive: EOMI; Negative: Sclera icteric ENT Exam: Positive: Atraumatic Neck Exam: Positive: Supple Chest Exam: Positive: Diminished, Other (coarse) Heart Exam: Positive: Rate Normal, Regular Rhythm, Murmurs (Known murmur) Abdomen Exam: Positive: Normal bowel sounds, Soft, Other (Umbilical hernia); Negative: Tenderness Extremity Exam: Negative: Edema Neuro Exam: Positive: Normal Speech, Cranial Nerves 3-12 NL Psych Exam: Positive: Mental status NL, Mood NL Assessment /Plan Assessment Mr. Nicholas is an 84 year old male with DM and history of bladder cancer who presents with abdominal pain, but then found to have hypoxia 2/2 pneumonia. Patient will be given supplemental oxygen for hypoxia and wean as tolerated. Patient will also be started on renally dosed levofloxacin for the pneumonia. Otherwise, he does have acute urinary retention. Placed catheter and tamsulosin. Patient has seen urology in past and will most likely need to follow up with Urology outpatient. Plan/VTE VTE Prophylaxis Ordered?: Yes Plan 1. Hypoxia 2/2 CAP -Leukocytosis with neurophil predominance and hypoxia -Bibasilar infiltrate -Supplemental oxygen and wean as tolerated -Renally dosed levofloxacin 2. Abdominal pain -Resolved after draining bladder 3. Acute urinary retention -Soto placed and drained 1200mL -Patient will need to follow up with urology outpatient -Start tamsulosin 4. Hypertension -Continue amlodipine, HCTZ, and valsartan 5. CKD -Creatinine at baseline -IVF as patient had contrast study today 6. DM -Hold metformin -Insulin sliding scale 7. DVT ppx -Heparin subQ due to CKD Disposition: pending improvement in respiratory status. Of note, he does have lactic acidosis, but does not demonstrate signs of hypoperfusion. Most likely secondary to metformin. He also recently received contrast study. Monitor lactic acid at this time. VS, I&O, 24H, Fishbone Vital Signs/I&O Vital Signs Date Time Temp Pulse Resp B/P (MAP) Pulse Ox O2 Delivery O2 Flow Rate FiO2 06/15/20 14:00 97.9 103 20 140/62 (88) 91 Nasal Cannula 1.0 I&O- Last 24 Hours up to 6 AM0 06/15/20 06:00 Intake Total 3580 ml Output Total 1100 ml Balance 2480 ml Laboratory Data 24H LABS Laboratory Tests 2 06/14/20 19:46: Bedside Glucose (Misc Panel) 153H 06/14/20 20:11: Lactic Acid Followup at 4 Hours 2.5*H 06/15/20 05:59: Nucleated Red Blood Cells % (auto) 0.0, Anion Gap 5L, Glomerular Filtration Rate 44.0, Calcium Level 9.0 06/15/20 11:20: Bedside Glucose (Misc Panel) 169H 06/15/20 16:18: Bedside Glucose (Misc Panel) 161H CBC/BMP Laboratory Tests 06/15/20 05:59 Microbiology Microbiology 06/14/20 Respiratory Virus Panel (PCR) ([facility]) - Final, Complete 06/14/20 Urine Culture - Final, Complete 06/14/20 Blood Culture - Preliminary, Resulted No growth after 24 hours . All specim... 06/14/20 Blood Culture - Preliminary, Resulted No growth after 24 hours . All specim... VERONICA GILL DO Jun 15, 2020 18:49
[2020-06-15] MEDS: MIRALAX *UNIT DOSE* 17GM PACKET PO SCH (21:08)
[2020-06-15] MEDS: TAMSULOSIN 0.4 MG CAP PO SCH (21:08)
[2020-06-15] MEDS: hydroCHLOROthiazide 12.5 MG CAPSULE PO SCH (21:08)
[2020-06-15] MEDS: VALSARTAN 80 MG TAB (DIOVAN) PO SCH (21:09)
[2020-06-15 22:00] VITALS: BP 112/56
[2020-06-16 06:00] VITALS: BP 110/64
[2020-06-16 06:50] LABS: HEMATOCRIT 46.5 % (42.0-52.0); HEMOGLOBIN 15.7 g/dl (13.5-17.5); MEAN CORPUSCULAR HEMOGLOBIN 31.5 pg (27.0-33.0); MEAN CORPUSCULAR HGB CONC 33.8 g/dl (32.0-36.5); MEAN CORPUSCULAR VOLUME 93.2 fl (80.0-96.0); PLATELET COUNT, AUTOMATED 239 10^3/uL (150-450); RED BLOOD COUNT 4.99 10^6/uL (4.30-6.10); WHITE BLOOD COUNT 22.5 10^3/uL (4.0-10.0)
[2020-06-16 07:16] LABS: CALCIUM LEVEL 8.2 MG/DL (8.8-10.2); CREATININE FOR GFR 1.86 MG/DL (0.70-1.30); GLOMERULAR FILTRATION RATE 36.9 (>35); POTASSIUM SERUM 4.1 MEQ/L (3.5-5.1)
[2020-06-16] MEDS: HEPARIN SOD (PORCINE) 5000UNITS/ML 1ML VIAL/SYRINGE SQ SCH ×3 (08:30→21:52)
[2020-06-16] MEDS: HumaLOG INSULIN (NovoLOG) PER UNIT SC SCH ×4 (08:30→21:00)
[2020-06-16] MEDS: MULTIVITAMINS/MINERALS THERAP 1 TAB PO SCH (08:30)
[2020-06-16] MEDS: DOCUSATE SODIUM 100MG CAPSULE PO SCH ×2 (08:30→21:51)
[2020-06-16] MEDS: MIRALAX *UNIT DOSE* 17GM PACKET PO SCH (08:30)
[2020-06-16] MEDS: ASPIRIN 81MG ENTERIC TABLET PO SCH (08:30)
[2020-06-16] MEDS: DOXYCYCLINE HYCLATE 100 MG in D5W MINI-BAG PLUS 100 ML IV SCH ×2 (10:25→21:49)
[2020-06-16] MEDS ORDERED: LevoFLOXacin IV 750 MG in IV 1 EA IV SCH (11:00)
[2020-06-16 11:05] LABS: BASO % 0.1 % (0.0-1.0); HEMATOCRIT 44.9 % (42.0-52.0); HEMOGLOBIN 15.2 g/dl (13.5-17.5); LYMPH # 0.7 10^3/uL (1.5-5.0); LYMPH % 3.2 % (24.0-44.0); MEAN CORPUSCULAR HEMOGLOBIN 31.4 pg (27.0-33.0); MEAN CORPUSCULAR HGB CONC 33.9 g/dl (32.0-36.5); MEAN CORPUSCULAR VOLUME 92.8 fl (80.0-96.0); MONO # 1.5 10^3/uL (0.0-0.8); NEUTROPHILS % 88.8 % (36.0-66.0); PLATELET COUNT, AUTOMATED 220 10^3/uL (150-450); RED BLOOD COUNT 4.84 10^6/uL (4.30-6.10)
[2020-06-16 11:06] LABS: WHITE BLOOD COUNT 21.5 10^3/uL (4.0-10.0)
[2020-06-16] MEDS: cefTRIAXone SOD 1 GM in D5W MINI-BAG PLUS 50 ML IV SCH (11:59)
--- NOTE | 2020-06-16 12:44 | IPNPDOC ---
Subjective Date Seen The patient was seen on 06/16/20. Subjective Chief Complaint/HPI Mr. Nicholas is an 84 year old male with DM and history of bladder cancer who presents with abdominal pain, but then found to have hypoxia 2/2 pneumonia. No fever overnight. Denies chest pain or dyspnea. Leukocytosis doubled since admission. Repeated another one later in the morning and has slightly declined. Objective Physical Examination General Exam: Positive: Alert, Cooperative Eye Exam: Positive: EOMI; Negative: Sclera icteric ENT Exam: Positive: Atraumatic Neck Exam: Positive: Supple Chest Exam: Positive: Diminished, Other (coarse) Heart Exam: Positive: Rate Normal, Regular Rhythm, Murmurs (Known murmur) Abdomen Exam: Positive: Normal bowel sounds, Soft, Other (Umbilical hernia); Negative: Tenderness Extremity Exam: Negative: Edema Neuro Exam: Positive: Normal Speech, Cranial Nerves 3-12 NL Psych Exam: Positive: Mental status NL, Mood NL Assessment /Plan Assessment Mr. Nicholas is an 84 year old male with DM and history of bladder cancer who pre sents with abdominal pain, but then found to have hypoxia 2/2 pneumonia. Patient will be given supplemental oxygen for hypoxia and wean as tolerated. Patient will also be started on renally dosed levofloxacin for the pneumonia. Otherwise, he does have acute urinary retention. On admission placed Soto catheter and started tamsulosin. Will try voiding trial today. Plan/VTE VTE Prophylaxis Ordered?: Yes Plan 1. Hypoxia 2/2 CAP -Leukocytosis with neurophil predominance and hypoxia -Bibasilar infiltrate -Supplemental oxygen and wean as tolerated -Renally dosed levofloxacin 2. Abdominal pain -Resolved after draining bladder 3. Acute urinary retention -Soto placed and drained 1200mL -Patient will need to follow up with urology outpatient -Continue tamsulosin -Voiding trial today 4. Hypertension -Continue amlodipine, HCTZ, and valsartan 5. CKD -Creatinine at baseline -IVF as patient had contrast study today 6. DM -Hold metformin -Insulin sliding scale 7. Lactic acidosis -Patient does not show signs of hypoperfusion -Most likely secondary to metformin and IV contrast -Supportive care 8. DVT ppx -Heparin subQ due to CKD Disposition: pending improvement in respiratory status. Leukocytosis trended up this morning and repeat demonstrates neutrophil predominance, May have plateau today. Will continue following CBC VS, I&O, 24H, Fishbone Vital Signs/I&O Vital Signs Date Time Temp Pulse Resp B/P (MAP) Pulse Ox O2 Delivery O2 Flow Rate FiO2 06/16/20 09:00 1.0 06/16/20 08:31 104 109/63 06/16/20 06:00 97.8 18 96 Nasal Cannula I&O- Last 24 Hours up to 6 AM 06/16/20 06:00 Intake Total 1990 ml Output Total 1700 ml Balance 290 ml Laboratory Data 24H LABS Laboratory Tests 2 06/15/20 16:18: Bedside Glucose (Misc Panel) 161H 06/15/20 20:37: Bedside Glucose (Misc Panel) 165H 06/16/20 06:29: Nucleated Red Blood Cells % (auto) 0.0, Anion Gap 10, Glomerular Filtration Rate 36.9, Calcium Level 8.2L 06/16/20 10:47: Nucleated Red Blood Cells % (auto) 0.0, Immature Granulocyte % (Auto) 0.9, Neutrophils (%) (Auto) 88.8H, Lymphocytes (%) (Auto) 3.2L, Monocytes (%) (Auto) 7.0, Eosinophils (%) (Auto) 0.0, Basophils (%) (Auto) 0.1, Neutrophils # (Auto) 19.0H, Lymphocytes # (Auto) 0.7L, Monocytes # (Auto) 1.5H, Eosinophils # (Auto) 0.0, Basophils # (Auto) 0.0 CBC/BMP Laboratory Tests 06/16/20 06:29 06/16/20 10:47 Microbiology Microbiology 06/14/20 Respiratory Virus Panel (PCR) ([facility]) - Final, Complete 06/14/20 Urine Culture - Final, Complete 06/14/20 Blood Culture - Preliminary, Resulted No Growth after 48 hours. All Specime... 06/14/20 Blood Culture - Preliminary, Resulted No Growth after 48 hours. All Specime... VERONICA GILL DO Jun 16, 2020 12:44
[2020-06-16 14:00] VITALS: BP 108/61
[2020-06-16] MEDS: VALSARTAN 80 MG TAB (DIOVAN) PO SCH (21:00)
[2020-06-16] MEDS: hydroCHLOROthiazide 12.5 MG CAPSULE PO SCH (21:49)
[2020-06-16] MEDS: TAMSULOSIN 0.4 MG CAP PO SCH (21:52)
[2020-06-16 22:00] VITALS: BP 105/55
[2020-06-17] MEDS: HEPARIN SOD (PORCINE) 5000UNITS/ML 1ML VIAL/SYRINGE SQ SCH ×3 (05:36→21:29)
[2020-06-17 06:00] VITALS: BP 108/56
[2020-06-17 06:03] LABS: HEMATOCRIT 43.2 % (42.0-52.0); HEMOGLOBIN 14.6 g/dl (13.5-17.5); MEAN CORPUSCULAR HEMOGLOBIN 31.3 pg (27.0-33.0); MEAN CORPUSCULAR HGB CONC 33.8 g/dl (32.0-36.5); MEAN CORPUSCULAR VOLUME 92.5 fl (80.0-96.0); PLATELET COUNT, AUTOMATED 239 10^3/uL (150-450); RED BLOOD COUNT 4.67 10^6/uL (4.30-6.10); WHITE BLOOD COUNT 19.3 10^3/uL (4.0-10.0)
[2020-06-17 06:33] LABS: CALCIUM LEVEL 8.3 MG/DL (8.8-10.2); CREATININE FOR GFR 1.99 MG/DL (0.70-1.30); GLOMERULAR FILTRATION RATE 34.2 (>35); POTASSIUM SERUM 3.6 MEQ/L (3.5-5.1)
[2020-06-17] MEDS: ASPIRIN 81MG ENTERIC TABLET PO SCH (08:55)
[2020-06-17] MEDS: MIRALAX *UNIT DOSE* 17GM PACKET PO SCH (08:56)
[2020-06-17] MEDS: HumaLOG INSULIN (NovoLOG) PER UNIT SC SCH ×4 (08:56→20:27)
[2020-06-17] MEDS: MULTIVITAMINS/MINERALS THERAP 1 TAB PO SCH (08:56)
[2020-06-17] MEDS: DOCUSATE SODIUM 100MG CAPSULE PO SCH (08:56)
[2020-06-17] MEDS: DOXYCYCLINE HYCLATE 100 MG in D5W MINI-BAG PLUS 100 ML IV SCH (08:56)
[2020-06-17] MEDS: cefTRIAXone SOD 1 GM in D5W MINI-BAG PLUS 50 ML IV SCH (10:38)
--- NOTE | 2020-06-17 13:32 | IPN ---
PROGRESS NOTE DATE: 06/17/2020 Patient seen and examined at the bedside. Chart has been reviewed. Patient complains of generalized weakness. No nausea, vomiting, fever, or chills. Has no cough, chest pain, or dyspnea. PHYSICAL EXAMINATION: Temperature 98.5, pulse 89, respiratory rate 18, blood pressure 101/57, 94% on 2 liter nasal cannula. GENERAL: Awake, alert, oriented, answering questions appropriately. No use of respiratory accessory muscles or conversational dyspnea. LUNGS: Diminished with coarse breath sounds bilaterally. No wheezing. HEART: S1, S2, sinus rhythm. ABDOMEN: Soft, nontender, nondistended. Positive bowel sounds. Reducible umbilical hernia. EXTREMITIES: No cyanosis, clubbing. Laboratory data and microbiology have been reviewed. ASSESSMENT AND PLAN: An 84-year-old male with a history of bladder cancer, admitted on 06/14/2020 with complaints of abdominal pain and shortness of breath, found to have community-acquired pneumonia. CT abdomen and pelvis showed bladder distention Soto catheter was placed and had 1.2 liters of clear urine out. Patient had significant hypoxia with oxygen saturation 86%, requiring [address] abdomen and pelvis showed bibasilar infiltrate. Coronavirus was negative on admission. CURRENT ISSUES: 1. Community-acquired pneumonia with persistent leukocytosis, currently on intravenous (IV) ceftriaxone and doxycycline, on supplemental oxygen to keep oxygen saturation greater than 90%. 2. Acute hypoxemic respiratory failure secondary to community-acquired pneumonia, currently on supplemental oxygen, IV ceftriaxone, and doxycycline. 3. Abdominal pain due to urine retention, status post Soto catheter placement with 1.2 liters removed. Continued on tamsulosin. 4. Hypertension, on chronic amlodipine, hydrochlorothiazide, and Valsartan. 5. Chronic kidney disease, currently with baseline creatinine. 6. Type diabetes, on sliding scale, consistent-carbohydrate diet. Metformin has been discontinued. 7. Lactic acidosis secondary to acute infection. DISPOSITION: Continue with present antibiotics. Obtain a sputum culture if possible. One to two more days of hospital stay. MTDD
[2020-06-17 14:00] VITALS: BP 114/58
[2020-06-17] MEDS ORDERED: DOCUSATE SODIUM 100MG CAPSULE PO PRN (15:15)
[2020-06-17 15:28] LABS: C REACTIVE PROTEIN QUANTITATIV 14.6 MG/DL (0.00-0.30)
[2020-06-17] MEDS: NS 1,000 ML IV SCH (16:41)
--- NOTE | 2020-06-17 18:10 | REPVR ---
PROCEDURE INFORMATION: Exam: CT Chest Without Contrast; Diagnostic Exam date and time: 06/17/2020 5:18 PM Age: 84 years old Clinical indication: Chest pain; Additional info: Pneumonia w worsening wbc R/O empyema/abscess TECHNIQUE: Imaging protocol: Diagnostic computed tomography of the chest without contrast. 3D rendering (Not supervised by radiologist): MIP and/or 3D reconstructed images were created by the technologist. Radiation optimization: All CT scans at this facility use at least one of these dose optimization techniques: automated exposure control; mA and/or kV adjustment per patient size (includes targeted exams where dose is matched to clinical indication); or iterative reconstruction. COMPARISON: NM Chest, 1 view 06/14/2020 9:51 AM FINDINGS: Lungs: Calcified granuloma left upper lobe. Patchy infiltrate right lung base associated with bronchial wall thickening consistent with reactive airway disease and surrounding pneumonitis. There is also evidence of mucous plugging. Elevated right hemidiaphragm. Pleural spaces: Small right pleural effusion. Considering history, pleural-based infection not excluded. Heart: There is mild atherosclerotic calcification of the coronary arteries. Pulmonary arteries: There is mild enlargement of the central pulmonary arteries, findings which can be associated with pulmonary arterial hypertension which should be correlated clinically. Aorta: There is mild atherosclerosis in the thoracic aorta. There is fusiform dilatation of the ascending thoracic aorta which measures 4 cm. maximally. There is no saccular component. Calcified aortic valve possibly indicative of calcific aortic stenosis. Lymph nodes: Unremarkable. No enlarged lymph nodes. Gallbladder and bile ducts: Abnormal thickening of the gallbladder wall with pericholecystic inflammation. Findings which may indicate acute cholecystitis to be correlated clinically. Inflammatory changes in the duodenal sweep likely reactive related to adjacent gallbladder pathology. Kidneys and ureters: Atrophic left kidney. Nonobstructive calculus right kidney. Bones/joints: The spine demonstrates moderate degenerative changes. Shallow dextroscoliosis. Soft tissues: 10 mm noncalcified soft tissue nodule posterior segment right upper lobe. IMPRESSION: 1. 10 mm noncalcified soft tissue nodule posterior segment right upper lobe. For both low risk and high risk patients, consider CT Chest at 3 months, PET/CT, or biopsy. (Reference: Joao) References: Joao Manriquez, et al. Guidelines for Management of Incidental Pulmonary Nodules Detected on CT Images: From the Fleischner Society 2017. Radiology. 2017;284(1):228-243. 2. Patchy infiltrate right lung base associated with bronchial wall thickening consistent with reactive airway disease and surrounding pneumonitis. There is also evidence of mucous plugging. 3. Small right pleural effusion. Considering history, pleural-based infection not excluded. 4. There is fusiform dilatation of the ascending thoracic aorta which measures 4 cm. maximally. There is no saccular component. 5. There is mild enlargement of the central pulmonary arteries, findings which can be associated with pulmonary arterial hypertension which should be correlated clinically. 6. Abnormal thickening of the gallbladder wall with pericholecystic inflammation. Findings which may indicate acute cholecystitis to be correlated clinically. Electronically signed by: Donovan Hermosillo On 06/17/2020 18:10:55 PM
[2020-06-17] MEDS: VALSARTAN 80 MG TAB (DIOVAN) PO SCH (20:24)
[2020-06-17] MEDS: hydroCHLOROthiazide 12.5 MG CAPSULE PO SCH (21:30)
[2020-06-17] MEDS: DOXYCYCLINE HYCLATE 100MG TABLET PO SCH (21:30)
[2020-06-17] MEDS: TAMSULOSIN 0.4 MG CAP PO SCH (21:30)
[2020-06-17 22:00] VITALS: BP 106/42
[2020-06-18] MEDS: NS 1,000 ML IV SCH (05:16)
[2020-06-18] MEDS: HEPARIN SOD (PORCINE) 5000UNITS/ML 1ML VIAL/SYRINGE SQ SCH ×3 (05:17→22:26)
[2020-06-18 06:00] VITALS: BP 107/56
[2020-06-18] MEDS: HumaLOG INSULIN (NovoLOG) PER UNIT SC SCH ×3 (07:34→17:00)
[2020-06-18] MEDS: DOXYCYCLINE HYCLATE 100MG TABLET PO SCH ×2 (07:35→22:26)
[2020-06-18] MEDS: ASPIRIN 81MG ENTERIC TABLET PO SCH (07:35)
[2020-06-18] MEDS: MULTIVITAMINS/MINERALS THERAP 1 TAB PO SCH (07:35)
[2020-06-18 08:39] LABS: BASO % 0.2 % (0.0-1.0); EOS # 0.1 10^3/uL (0.0-0.5); EOS % 0.8 % (0.0-3.0); HEMATOCRIT 41.1 % (42.0-52.0); HEMOGLOBIN 13.9 g/dl (13.5-17.5); LYMPH # 0.7 10^3/uL (1.5-5.0); LYMPH % 4.1 % (24.0-44.0); MEAN CORPUSCULAR HEMOGLOBIN 30.8 pg (27.0-33.0); MEAN CORPUSCULAR HGB CONC 33.8 g/dl (32.0-36.5); MEAN CORPUSCULAR VOLUME 91.1 fl (80.0-96.0); MONO % 6.5 % (2.0-8.0); NEUTROPHILS % 87.5 % (36.0-66.0); PLATELET COUNT, AUTOMATED 233 10^3/uL (150-450); RED BLOOD COUNT 4.51 10^6/uL (4.30-6.10)
[2020-06-18 09:05] LABS: ALBUMIN 2.4 GM/DL (3.2-5.2); BILIRUBIN,TOTAL 0.5 MG/DL (0.2-1.0); C REACTIVE PROTEIN QUANTITATIV 13.4 MG/DL (0.00-0.30); CALCIUM LEVEL 7.8 MG/DL (8.8-10.2); CREATININE FOR GFR 1.54 MG/DL (0.70-1.30); GLOMERULAR FILTRATION RATE 45.9 (>35); POTASSIUM SERUM 3.9 MEQ/L (3.5-5.1); TOTAL PROTEIN 5.3 GM/DL (6.4-8.2)
[2020-06-18 09:33] LABS: ERYTHROCYTE SEDIMENTATION RATE 25 mm/hr (0-20)
[2020-06-18] MEDS: PIPERACILLIN/TAZOBACTAM SOD 3.375 GM in D5W MINI-BAG PLUS 50 ML IV SCH ×3 (09:40→22:26)
--- NOTE | 2020-06-18 10:48 | IPN ---
PROGRESS NOTE DATE: 06/18/2020 SUBJECTIVE: The patient complains of right upper quadrant abdominal pain worse when he takes a deep breath. No fever, chills, nausea, or vomiting. He is tolerating his diet. The patient's white count continues to be elevated at 21,000 and 19,000 yesterday currently on ceftriaxone and doxycycline. CT chest shows bilateral infiltrates, but with possible inflammation of the gallbladder with possible acute cholecystitis. The patient has been kept n.p.o. for an ultrasound of the gallbladder this morning. OBJECTIVE: VITAL SIGNS: Temperature 98, pulse 91, respiratory rate 20, blood pressure 107/56, 91% on 1 liter nasal cannula. GENERAL: The patient is awake, alert, and oriented x3. Answering questions appropriately. HEENT: No JVD or thyromegaly. Dry mucous membranes. LUNGS: Diminished with crackles bilaterally. HEART: S1, S2, sinus rhythm. ABDOMEN: Tender right upper quadrant without rebound or guarding and obese abdomen. No fluid wave. EXTREMITIES: Trace edema. LABORATORY DATA: White count 16, hemoglobin 13, hematocrit 41, platelet count 233,000. Lactic acid of 2.2, sodium 132, potassium 3.9, chloride 100, bicarb 24, BUN 53, creatinine 1.5 from previous creatinine of 1.9, and glucose of 190. IMAGING DATA: CT chest acute cholecystitis with abnormal thickening of the gallbladder wall with pericholecystic inflammation, 10 mm soft tissue nodule in the right upper lobe, patchy infiltrate at the right base with reactive airway disease, pneumonitis, and mucous plugging. Right pleural effusion, small fusiform dilation of ascending thoracic aorta measuring 4 cm without saccular component. Pulmonary arterial hypertension. ASSESSMENT/PLAN: This is an 84-year-old male with history of bladder carcinoma (CA) and pulmonary hypertension admitted on 06/14 with complaints of abdominal pain, shortness of breath, and nausea found to have right lower lobe consolidation and acute hypoxic respiratory failure with oxygen saturation 86% requiring 2 liters of oxygen. Coronavirus 19 was negative on admission. 1. Right lower lobe pneumonia currently on IV ceftriaxone, doxycycline, and supplemental oxygen to keep O2 saturations greater than 90%. White count has to 16,000, but he complains of right upper quadrant abdominal discomfort with CT findings consistent with acute cholecystitis. 2. Acute hypoxemic respiratory failure due to pneumonia community-acquired on supplemental oxygen, IV ceftriaxone, and doxycycline. 3. Mucous plugging. Incentive spirometry and Acapella device. 4. Reactive airway disease worsened by community-acquired pneumonia. Continue with nebulizer treatment. 5. Acute cholecystitis. Keep n.p.o. status aside from medications. Confirm with ultrasound of gallbladder. If negative for gallstones or acute cholecystitis due to complaints of right upper quadrant abdominal pain, check a HIDA scan to rule out biliary dyskinesia. 6. Hypertension on chronic amlodipine and valsartan. 7. Chronic kidney disease stage III currently at baseline creatinine on IV fluids due to n.p.o. status. 8. Type 2 diabetes on consistent carbohydrate diet. Metformin has been discontinued. He is on sliding scale with coverage current n.p.o. 9. Lactic acidosis secondary to acute infection and sepsis with heart rate of 118, white count of 16,000, documented pneumonia, and possible acute cholecystitis. MTDD
[2020-06-18 16:00] VITALS: BP 128/56
--- NOTE | 2020-06-18 16:04 | REP ---
INDICATION: abd pain r/o acute cholecystitis. COMPARISON: CT chest 06/17/2020. TECHNIQUE: Real-time sonographic evaluation of right upper quadrant performed. FINDINGS: Gallbladder is distended and contains sludge. There is no definite evidence of intraluminal calculus. There is mild pericholecystic fluid. There is gallbladder wall thickening and edema. The gallbladder wall thickness reaches a maximum of 9 mm.. There is no intrahepatic or extrahepatic biliary dilatation, common bile duct measures 5 mm in maximum diameter. There is diffuse increased echotexture of the liver suggesting diffuse fatty infiltration. Pancreas is not well seen. The right kidney demonstrates no hydronephrosis, with a size of 14.4 cm in length. IMPRESSION: Distended gallbladder containing sludge. No definite intraluminal calculus. There is diffuse gallbladder wall thickening and edema with mild pericholecystic fluid. There is no biliary dilatation. Findings are suspicious for cholecystitis. <Electronically signed by Matty Fernández > 06/18/20 1600
[2020-06-18] MEDS: D5W/0.45% SODIUM CHLORIDE 1,000 ML IV SCH (17:29)
--- NOTE | 2020-06-18 18:33 | REP ---
INDICATION: abd pain. COMPARISON: Comparison is made with coronal images from chest CT study 17 June 2020 as well as today's right upper quadrant sonography.. TECHNIQUE/RADIOTRACER AND DOSE: 6.6 mCi of Technetium-99m mebrofenin was injected and sequential anterior images are acquired. Initial sequential images are acquired for 60 minutes. Following this, delayed anterior and right lateral views are obtained at 4 hours post injection. FINDINGS: The initial hepatocellular parenchymal uptake phase is normal and homogeneous. Intra- and extra-hepatic bile ducts are labeled by the 10-minute image. The gallbladder is not visualized during the initial 1 hour of imaging. There is washout from the liver parenchyma into the small intestine. 4 hour delayed images demonstrate distal small bowel and fairly extensive colonic uptake involving the right colon, hepatic flexure, and transverse colon. No definite gallbladder visualization. IMPRESSION: Initial 1 hour images do not show gallbladder visualization. There is right colon uptake on the 4 hour delayed images but it does not appear that the gallbladder is visualized on delayed images. Findings most consistent with acute cholecystitis. <Electronically signed by Artie Montano > 06/18/20 [id number]
[2020-06-18] MEDS ORDERED: DEXTROSE 50% 50 ML SYRINGE IV PRN (20:35)
[2020-06-18] MEDS ORDERED: GLUCAGON INJ 1MG VIAL SC PRN (20:35)
[2020-06-18] MEDS ORDERED: GLUCOSE 4GM CHEW TABLET PO PRN (20:35)
[2020-06-18 22:00] VITALS: BP 123/63
[2020-06-18] MEDS: TAMSULOSIN 0.4 MG CAP PO SCH (22:26)
[2020-06-18] MEDS: VALSARTAN 80 MG TAB (DIOVAN) PO SCH (22:28)
[2020-06-19] VITALS (7 sets, daily range): BP systolic 102–116; BP diastolic 56–60
[2020-06-19] MEDS: HumaLOG INSULIN (NovoLOG) PER UNIT SC SCH ×4 (00:20→18:00)
[2020-06-19] MEDS: PIPERACILLIN/TAZOBACTAM SOD 3.375 GM in D5W MINI-BAG PLUS 50 ML IV SCH ×4 (03:35→21:41)
[2020-06-19] MEDS: HEPARIN SOD (PORCINE) 5000UNITS/ML 1ML VIAL/SYRINGE SQ SCH ×2 (06:16→13:00)
[2020-06-19 07:36] LABS: BASO # 0.1 10^3/uL (0.0-0.2); BASO % 0.4 % (0.0-1.0); EOS # 0.3 10^3/uL (0.0-0.5); EOS % 2.1 % (0.0-3.0); HEMATOCRIT 41.3 % (42.0-52.0); HEMOGLOBIN 13.4 g/dl (13.5-17.5); LYMPH # 0.8 10^3/uL (1.5-5.0); LYMPH % 5.5 % (24.0-44.0); MEAN CORPUSCULAR HEMOGLOBIN 30.2 pg (27.0-33.0); MEAN CORPUSCULAR HGB CONC 32.4 g/dl (32.0-36.5); MEAN CORPUSCULAR VOLUME 93.2 fl (80.0-96.0); MONO # 1.3 10^3/uL (0.0-0.8); MONO % 8.7 % (2.0-8.0); NEUTROPHILS # 12.6 10^3/uL (1.5-8.5); NEUTROPHILS % 82.1 % (36.0-66.0); PLATELET COUNT, AUTOMATED 258 10^3/uL (150-450); RED BLOOD COUNT 4.43 10^6/uL (4.30-6.10); WHITE BLOOD COUNT 15.4 10^3/uL (4.0-10.0)
[2020-06-19 08:01] LABS: ALBUMIN 2.2 GM/DL (3.2-5.2); BILIRUBIN,TOTAL 0.7 MG/DL (0.2-1.0); CALCIUM LEVEL 8.2 MG/DL (8.8-10.2); CREATININE FOR GFR 1.64 MG/DL (0.70-1.30); GLOMERULAR FILTRATION RATE 42.7 (>35); MAGNESIUM LEVEL 2.4 MG/DL (1.8-2.4); POTASSIUM SERUM 3.5 MEQ/L (3.5-5.1); TOTAL PROTEIN 5.7 GM/DL (6.4-8.2)
[2020-06-19] MEDS: D5W/0.45% SODIUM CHLORIDE 1,000 ML IV SCH ×2 (08:25→21:39)
[2020-06-19] MEDS: ASPIRIN 81MG ENTERIC TABLET PO SCH (08:26)
[2020-06-19] MEDS: MULTIVITAMINS/MINERALS THERAP 1 TAB PO SCH (08:26)
[2020-06-19] MEDS: DOXYCYCLINE HYCLATE 100MG TABLET PO SCH ×2 (08:26→21:41)
[2020-06-19 09:09] LABS: CHOLESTEROL RISK RATIO 3.258 (<5)
--- NOTE | 2020-06-19 11:49 | IPN ---
PROGRESS NOTE DATE: 06/19/2020 SUBJECTIVE: Patient has had no fever or chills overnight. Patient's pain has improved. No nausea or vomiting. Slightly hungry this morning. Cough has diminished. Still short of breath requiring supplemental oxygen, saturating 93% on 1 liter nasal cannula. No chest pain, pressure, or tightness. Temperature 97.1, pulse 75, respiratory rate 19, blood pressure 114/59, 83% on 1 liter nasal cannula. GENERAL: Anicteric. No jaundice. No use of respiratory accessory muscles. Able to complete sentences. HEENT No jugular venous distention (JVD, thyromegaly, cervical lymphadenopathy, stridor, or carotid bruit. LUNGS: Diminished, clear to auscultation. No wheezing or rales. HEART: S1, S2, sinus rhythm. ABDOMEN: Obese, slightly tender, right upper quadrant. No rebound or guarding. Positive bowel sounds. EXTREMITIES: No cyanosis or clubbing. LABORATORY DATA: White count 15, hemoglobin 13, hematocrit 41, platelet count 258. Sodium 134, potassium 3.5, chloride 101, bicarbonate 27, BUN 44, creatinine 1.64, glucose 139, lactic acid of 1. Total bilirubin 0.7, AST 62, ALT 80, alkaline phosphatase 130. Lipase 198. Total protein 5.7. Albumin of 2.2. Respiratory panel negative. Urine culture negative. Two sets of blood cultures negative. Ultrasound gallbladder: Acute cholecystitis. No definite intraluminal calculus. Gallbladder wall thickening and edema with mild pericholecystic fluid. Chest CT June 17: Mucous plugging. Patchy infiltrate at the right base, consistent with reactive airway disease. Right pleural effusion. Pulmonary arterial hypertension. A 4 cm ascending thoracic aorta fusiform dilatation with no saccular component, possibly indicative of calcific aortic stenosis. A 10 mm noncalcified soft tissue nodule in the posterior segment of the right upper lobe. ASSESSMENT AND PLAN: This is an 84-year-old full code with past medical history significant for pulmonary hypertension, bladder cancer (CA) who presented on June 14 with abdominal pain, shortness of breath, nausea, found to have a right lower lobe consolidation, acute hypoxemic respiratory failure, urine retention with abdominal pain, and renal failure. Patient was saturating 86% and required 2 liters of oxygen. 1. Right lower lobe status post ceftriaxone and doxycycline. Changed to Zosyn due to persistent elevated white count and new findings of acute cholecystitis. 2. Acute cholecystitis, currently nothing by mouth status, on intravenous (IV) Zosyn, day #2. Ceftriaxone has been discontinued. Surgical consult to determine if patient requires a cholecystostomy tube, timing of advancement of diet, and laparoscopic cholecystectomy in the future. 3. Acute hypoxemic respiratory failure due to pneumonia, community required, on supplemental oxygen, IV Zosyn, previously on IV ceftriaxone and doxycycline. 4. Reactive airway disease, worsened by pneumonia. Continue with breathing treatment. Respiratory panel was negative. 5. Hypertension, on chronic amlodipine and valsartan with holding parameters. 6. Chronic kidney disease, stage III, at baseline creatinine. Monitor for fluid overload. 7. Type 2 diabetes. Metformin. Oral hypoglycemics have been discontinued. Currently on sliding scale with hypoglycemic protocol due to nothing by mouth status. 8. Lactic acidosis, resolved, secondary to pneumonia and acute cholecystitis. MTDD
[2020-06-19] MEDS ORDERED: ONDANSETRON 4MG/2ML VIAL As Ordered ONE (14:32)
[2020-06-19] MEDS ORDERED: dexameTHASONE 4 MG/ML 1ML VIAL (J1100 PER 1MG) As Ordered ONE (14:32)
[2020-06-19] MEDS ORDERED: fentaNYL 100 MCG/2 ML INJECTION (J3010) As Ordered ONE (14:32)
[2020-06-19] MEDS ORDERED: propofoL 200 MG/20 ML VIAL As Ordered ONE (14:33)
[2020-06-19] MEDS ORDERED: SUGAMMADEX SODIUM 500 MG/5 ML VIAL (BRIDION) As Ordered ONE (14:33)
[2020-06-19] MEDS ORDERED: ROCURONIUM BROMIDE 50 MG/5 ML VIAL As Ordered ONE ×2 (14:33→16:47)
[2020-06-19] MEDS ORDERED: ePHEDrine SULFATE 25 MG/5 ML(5MG/ML) SYRINGE As Ordered ONE (14:33)
[2020-06-19] MEDS ORDERED: LIDOCAINE 2% 100MG/5ML SDV (FOR ANES.) As Ordered ONE (14:33)
[2020-06-19] MEDS ORDERED: PHENYLephrine 500MCG 5ML (100MCG/ML) SYRINGE As Ordered ONE (14:33)
[2020-06-19] MEDS ORDERED: BUPIVACAINE HCL 0.25% 30ML VIAL As Ordered ONE (14:37)
[2020-06-19] MEDS ORDERED: VASOPRESSIN INJ 20 UNITS/ML VIAL As Ordered ONE (16:18)
[2020-06-19] MEDS ORDERED: ACETAMINOPHEN 1000MG 100ML IV BTL (OFIRMEV) (J0131 PER 10MG) As Ordered ONE (16:32)
[2020-06-19] MEDS ORDERED: HYDROmorphone HCL 2 MG/ML 1ML VIAL (J1170) As Ordered ONE (17:12)
[2020-06-19] MEDS ORDERED: ACETAMINOPHEN TAB 650MG DOSE (2X325MG) PO PRN (19:15)
[2020-06-19] MEDS ORDERED: MORPHINE 2 MG/ML 1ML VIAL (J2270) IV PRN (19:15)
[2020-06-19] MEDS ORDERED: fentaNYL 100 MCG/2 ML INJECTION (J3010) IV PRN (19:30)
[2020-06-19] MEDS ORDERED: PERCOCET 5MG/325MG TAB PO PRN (19:30)
[2020-06-19] MEDS ORDERED: ONDANSETRON 4MG/2ML VIAL IV PRN (19:30)
[2020-06-19] MEDS ORDERED: METOCLOPRAMIDE INJ 10MG/2ML VIAL (J2765 PER 1) IV PRN (19:30)
[2020-06-19] MEDS ORDERED: LR 1,000 ML IV SCH (19:30)
[2020-06-19] MEDS: VALSARTAN 80 MG TAB (DIOVAN) PO SCH (21:00)
[2020-06-19] MEDS: TAMSULOSIN 0.4 MG CAP PO SCH (21:41)
[2020-06-20 00:30] VITALS: BP 110/54
[2020-06-20] MEDS: HumaLOG INSULIN (NovoLOG) PER UNIT SC SCH ×5 (00:58→20:50)
[2020-06-20 01:30] VITALS: BP 112/55
[2020-06-20] MEDS: PIPERACILLIN/TAZOBACTAM SOD 3.375 GM in D5W MINI-BAG PLUS 50 ML IV SCH ×4 (03:42→21:03)
[2020-06-20 06:00] VITALS: BP 101/58
[2020-06-20 07:23] LABS: BASO # 0.1 10^3/uL (0.0-0.2); BASO % 0.3 % (0.0-1.0); EOS % 0.1 % (0.0-3.0); HEMATOCRIT 37.6 % (42.0-52.0); HEMOGLOBIN 12.3 g/dl (13.5-17.5); LYMPH # 0.5 10^3/uL (1.5-5.0); LYMPH % 3.8 % (24.0-44.0); MEAN CORPUSCULAR HEMOGLOBIN 30.4 pg (27.0-33.0); MEAN CORPUSCULAR HGB CONC 32.7 g/dl (32.0-36.5); MEAN CORPUSCULAR VOLUME 93.1 fl (80.0-96.0); MONO # 0.8 10^3/uL (0.0-0.8); MONO % 5.7 % (2.0-8.0); NEUTROPHILS # 12.5 10^3/uL (1.5-8.5); NEUTROPHILS % 87.2 % (36.0-66.0); PLATELET COUNT, AUTOMATED 277 10^3/uL (150-450); RED BLOOD COUNT 4.04 10^6/uL (4.30-6.10); WHITE BLOOD COUNT 14.3 10^3/uL (4.0-10.0)
[2020-06-20 07:35] LABS: BILIRUBIN,TOTAL 0.4 MG/DL (0.2-1.0); CREATININE FOR GFR 1.58 MG/DL (0.70-1.30); GLOMERULAR FILTRATION RATE 44.6 (>35); MAGNESIUM LEVEL 2.4 MG/DL (1.8-2.4); POTASSIUM SERUM 3.9 MEQ/L (3.5-5.1); TOTAL PROTEIN 5.5 GM/DL (6.4-8.2)
[2020-06-20] MEDS: MULTIVITAMINS/MINERALS THERAP 1 TAB PO SCH (07:53)
[2020-06-20] MEDS: ASPIRIN 81MG ENTERIC TABLET PO SCH (07:53)
[2020-06-20] MEDS: DOXYCYCLINE HYCLATE 100MG TABLET PO SCH ×2 (07:53→21:02)
[2020-06-20] MEDS: NORCO, ANEXSIA 5/325MG TABLET (HYDROcodone/ACETAMINOPHEN) PO PRN ×2 (07:54→17:08)
[2020-06-20 10:00] VITALS: BP 114/54
--- NOTE | 2020-06-20 10:47 | RO ---
OPERATIVE NOTE DATE OF OPERATION: 06/19/2020 PREOPERATIVE DIAGNOSIS: Acute cholecystitis. POSTOPERATIVE DIAGNOSIS: Gangrenous cholecystitis. PROCEDURE PERFORMED: Robotic-assisted laparoscopic cholecystectomy. SURGEON: Jamison Raman MD STRATEGY MANAGER: ANESTHESIA: General. INDICATIONS FOR THE PROCEDURE: The patient is an 84-year-old man who was admitted on the 14 of June with some nausea and vomiting and some upper abdominal discomfort. He was diagnosed with pneumonia and started on antibiotics by the Hospitalist Service. He was subsequently ____(cut out) changes around the gallbladder and had further imaging with gallbladder ultrasound and HIDA which showed acute cholecystitis. I was consulted and he is now for robotic-assisted laparoscopic cholecystectomy. DESCRIPTION OF PROCEDURE: The patient was brought to the operating room and placed on the table in supine position. He was placed under general endotracheal anesthesia. The patient's abdomen was prepped and draped in sterile fashion. He was noted to have an incompletely reducible 6 cm umbilical hernia bulge which is of longstanding. The sites for placement of his robotic trocars were marked on the abdominal wall. Initial entry was in the left upper quadrant. 0.25% Marcaine was infiltrated at the trocar sites. Veress needle was placed in the left upper quadrant in the usual fashion and the abdomen was inflated with CO2 gas. An 8 mm port was placed over 5 mm scope and advanced through the abdominal wall. Initial examination showed that there had been a small amount of insufflation of the greater omentum but there was no evidence of bleeding. There was abundant omentum covering the small bowel. The liver was noted and appeared prominent but not otherwise abnormal. The patient was tilted slightly to reverse Trendelenburg position and rolled to the left. The three additional trocars were placed at the midline above the umbilicus and two in the right lower quadrant. The patient cart was brought into position and the endoscope arm was docked to the supraumbilical site. Targeting took place in the right upper quadrant and the additional arms were then docked. A Hook cautery, fenestrated bipolar and grasping retractor were all placed. I then moved to the control console to proceed with the operation. Initially the omentum was retracted away from the undersurface of the liver. The gallbladder was found to be markedly inflamed and edematous at the fundus but as the encasing omentum was peeled away the patient was found to have multiple necrotic areas of the free wall of the gallbladder indicating gangrenous cholecystitis. There was some slight bile staining of the surrounding omentum but no gross perforation was identified at this time. The omentum was peeled away by careful blunt dissection to expose the gallbladder. The gallbladder was quite distended and as I tried to grasp this it did rupture through one of the necrotic areas spilling some dark bile into the surrounding area. This was suctioned and then copiously irrigated to remove all the bile staining. There were some tiny particulate bits of sludge that were removed by irrigation as well. I then sucked out any remaining fluid through the opening that had occurred. Gallbladder was then grasped and elevated. The omentum was peeled away as thoroughly as possible with blunt and occasional cautery dissection. There was marked induration and edema around the neck area of the gallbladder. The peritoneum was opened and some dissection was begun but there was marked edema and friability of the tissues. I elected to change to a fundus down approach to dissection of the gallbladder. Therefore, the peritoneum was opened near the fundus of the gallbladder and dissection was begun from the fundus toward the neck. As the gallbladder was peeled away from the liver there were multiple small areas of abscess formation in the wall of the gallbladder and in the underlying liver. The wall was necrotic in areas. As the neck of the gallbladder was approached the cholecystic artery was identified and this was clipped and divided. Further dissection proceeded to identify the gallbladder neck and the origin of the cystic duct. It was clear that the mucosa of the gallbladder neck and cystic duct was necrotic and this necrotic portion of the cystic duct extended into a mass of inflamed scar tissue and I elected not to attempt any further dissection of this. This tissue was cut off as the duct disappeared into the surrounding inflamed tissue. The gallbladder was placed in an Endopouch. There was no evidence of any backflow of bile from the end of the cystic duct. The right upper quadrant was then copiously irrigated. Hemostasis was ensured with cautery. Because of the marked inflammation and necrotic and infected tissues there had been some blood loss of approximately 300 mL estimated. There was no further bleeding identified and no sign of bile leak. Because of the marked inflammation I did elect to place a drain in the gallbladder bed. The patient was returned to a flat position. The robotic instruments were removed and robot undocked and I returned to the patient's side. A 19-Polish Андрей drain was inserted through one of the ports and directed out through a new stab wound high in the right upper quadrant just below the costal margin. This was directed across the undersurface of the liver across the gallbladder bed. The string of the Endopouch was grasped through the supraumbilical site. The abdomen was deflated and trocars were all removed. The gallbladder was recovered through the supraumbilical site which required extending the skin and fascial incisions somewhat for the thickened gallbladder. This was sent for permanent pathology. The peritoneum was then closed with 2-0 Vicryl and fascia was closed with interrupted simple sutures of 1-0 Vicryl. The drain was sutured to the skin with 2-0 silk and covered with CHG Op-Site. The skin incisions were closed with buried 4-0 Vicryl and Steri-Strips. The patient tolerated the procedure well without apparent complication. He was awakened in the operating room, extubated and moved to the recovery room in stable condition.
--- NOTE | 2020-06-20 10:48 | IPNPDOC ---
Date Seen The patient was seen on 06/20/20. Progress Note SUBJECTIVE: no pain at rest. ruq epigastric pain 3/10 pain scale when moves. still w slight cough decreased sputum. no sob, fever/chills, n/v. pod#1 s/p robotic assisted lap mariam by Dr. Miller. OBJECTIVE PHYSICAL EXAMINATION: vitals: see below GENERAL: Anicteric. No jaundice. No use of respiratory accessory muscles. Able to complete sentences. HEENT No jugular venous distention thyromegaly, cervical lymphadenopathy, stridor, or carotid bruit. LUNGS: Diminished, clear to auscultation. No wheezing or rales. HEART: S1, S2, sinus rhythm. ABDOMEN: Obese, slightly tender, right upper quadrant. No rebound or guarding. Positive bowel sounds. right himanshu drain EXTREMITIES: No cyanosis or clubbing. LABORATORY DATA, IMAGING STUDIES, MICROBIOLOGY: Please see below. Chest CT June 17: Mucous plugging. Patchy infiltrate at the right base, consistent with reactive airway disease. Right pleural effusion. Pulmonary arterial hypertension. A 4 cm ascending thoracic aorta fusiform dilatation with no saccular component, possibly indicative of calcific aortic stenosis. A 10 mm noncalcified soft tissue nodule in the posterior segment of the right upper lobe. ASSESSMENT AND PLAN: This is an 84-year-old full code with past medical history significant for pulmonary hypertension, bladder cancer (CA) who presented on June 14 with abdominal pain, shortness of breath, nausea, found to have a right lower lobe consolidation, acute hypoxemic respiratory failure, urine retention with abdominal pain, and renal failure. Patient was saturating 86% and required 2 liters of oxygen. 1. Right lower lobe status post ceftriaxone and doxycycline. Changed to Zosyn due to persistent elevated white count and new findings of acute cholecystitis. 2. Acute cholecystitis, on intravenous (IV) Zosyn, day #3. Ceftriaxone has been discontinued. s/p robotic assisted lap mariam dr. miller 06/19/20 pod#1.PRN pain meds.clears . to be advanced by surgery 3. Acute hypoxemic respiratory failure due to pneumonia, community required, on supplemental oxygen, IV Zosyn, previously on IV ceftriaxone and doxycycline. 4. Reactive airway disease, worsened by pneumonia. Continue with breathing treatment. Respiratory panel was negative. 5. Hypertension, on chronic amlodipine and valsartan with holding parameters. 6. Chronic kidney disease, stage III, at baseline creatinine. Monitor for fluid overload. 7. Type 2 diabetes. hypoglycemic protocol sliding scale w coverage. dispo: mon if tolerates diet. VS, I&O, 24H, Fishbone Vital Signs/I&O Vital Signs Date Time Temp Pulse Resp B/P (MAP) Pulse Ox O2 Delivery O2 Flow Rate FiO2 06/20/20 10:00 97.8 79 13 114/54 (74) 94 Nasal Cannula 2.0 I&O- Last 24 Hours up to 6 AM 06/20/20 06:00 Intake Total 3500 ml Output Total 665 ml Balance 2835 ml Laboratory Data 24H LABS Laboratory Tests 2 06/19/20 11:47: Bedside Glucose (Misc Panel) 147H 06/19/20 20:40: Bedside Glucose (Misc Panel) 174H 06/20/20 00:27: Bedside Glucose (Misc Panel) 177H 06/20/20 06:01: Immature Granulocyte % (Auto) 2.9, Neutrophils (%) (Auto) 87.2H, Lymphocytes (%) (Auto) 3.8L, Monocytes (%) (Auto) 5.7, Eosinophils (%) (Auto) 0.1, Basophils (%) (Auto) 0.3, Neutrophils # (Auto) 12.5H, Lymphocytes # (Auto) 0.5L, Monocytes # (Auto) 0.8, Eosinophils # (Auto) 0.0, Basophils # (Auto) 0.1, Nucleated Red Blood Cells % (auto) 0.0, Anion Gap 6L, Glomerular Filtration Rate 44.6, Calcium Level 8.0L, Magnesium Level 2.4, Total Bilirubin 0.4, Aspartate Amino Transf (AST/SGOT) 54H, Alanine Aminotransferase (ALT/SGPT) 85H, Alkaline Phosphatase 126H, Total Protein 5.5L, Albumin 2.0L, Albumin/Globulin Ratio 0.6 06/20/20 06:07: Bedside Glucose (Misc Panel) 144H CBC/BMP Laboratory Tests 06/20/20 06:01 Microbiology Microbiology 06/14/20 Respiratory Virus Panel (PCR) ([facility]) - Final, Complete 06/14/20 Urine Culture - Final, Complete 06/14/20 Blood Culture - Final, Complete NO GROWTH AFTER 5 DAYS 06/14/20 Blood Culture - Final, Complete NO GROWTH AFTER 5 DAYS SCARLETT PATEL MD Jun 20, 2020 10:44
--- NOTE | 2020-06-20 11:29 | IPNPDOC ---
Text Note Date of Service The patient was seen on 06/20/20. NOTE General Surgery Dr Raman The patient is an 84-year-old male status post antibiotic assisted laparoscopic cholecystectomy as per Dr. aRman 06/19/20. This morning, the patient is sitting up in bed, reports his pain is controlled. The patient states his abdomen still feels bloated. Tolerating clear liquids. Reports no nausea or vomiting. One bowel movement 06/19, none so far today. Afebrile Heart rate 79, restrained rate 13, blood pressure 114/54, 94% 2 L nasal cannula Awake and alert, sitting up in bed, NAD Lungs clear to auscultation anteriorly. S1 and S2 regular rate and rhythm. Abdomen is protuberant, soft, distended although the patient states this is about the same as yesterday. Surgical sites are C/D/I with no drainage noted on the dressings. GI drain in pl dc with serosanguineous drainage. 3500/1205, +2295 GI drain 5 mL WBC 14.3, hemoglobin 12.3, neutrophils 87.2 Serum creatinine 1.58, GFR 44.6. Assessment/plan Acute cholecystitis/ POD 1 robotic assisted laparoscopic cholecystectomy. Reports pain is controlled. The patient is tolerating clear liquids. GI drain 5 mL output. Dressings clean/dry/intact. Encourage out of bed and incentive spirometer. Monitor. VS,Fishbone, I+O VS, Fishbone, I+O Laboratory Tests 06/20/20 06:01 Vital Signs Date Time Temp Pulse Resp B/P (MAP) Pulse Ox O2 Delivery O2 Flow Rate FiO2 06/20/20 10:00 97.8 79 13 114/54 (74) 94 Nasal Cannula 2.0 I&O- Last 24 Hours up to 6 AM 06/20/20 06:00 Intake Total 3500 ml Output Total 665 ml Balance 2835 ml Attending Note Attending Note Pt had gangrenous GB with small abscesses in wall and underlying liver. Doing well this am. Has not voided as of about 1030. Abd distended with BS. Drain with small amt serosang fluid Labs noted and WBC down slightly Doing well overall Continue Abx. Cont drain till output minimal Order placed to bladder scan if no void soon. Lena Rosario Jun 20, 2020 11:29 Jamison Raman Jun 20, 2020 12:43
[2020-06-20 14:00] VITALS: BP 116/55
[2020-06-20] MEDS: VALSARTAN 80 MG TAB (DIOVAN) PO SCH (21:02)
[2020-06-20] MEDS: TAMSULOSIN 0.4 MG CAP PO SCH (21:02)
[2020-06-20 22:00] VITALS: BP 124/58
[2020-06-21 02:00] VITALS: BP 125/66
[2020-06-21] MEDS: PIPERACILLIN/TAZOBACTAM SOD 3.375 GM in D5W MINI-BAG PLUS 50 ML IV SCH ×4 (02:41→20:39)
[2020-06-21 06:00] VITALS: BP 128/62
[2020-06-21 07:55] LABS: HEMATOCRIT 40.5 % (42.0-52.0); HEMOGLOBIN 13.1 g/dl (13.5-17.5); MEAN CORPUSCULAR HEMOGLOBIN 30.4 pg (27.0-33.0); MEAN CORPUSCULAR HGB CONC 32.3 g/dl (32.0-36.5); PLATELET COUNT, AUTOMATED 293 10^3/uL (150-450); RED BLOOD COUNT 4.31 10^6/uL (4.30-6.10); WHITE BLOOD COUNT 10.2 10^3/uL (4.0-10.0)
[2020-06-21 08:21] LABS: ALBUMIN 2.2 GM/DL (3.2-5.2); BILIRUBIN,TOTAL 0.4 MG/DL (0.2-1.0); CALCIUM LEVEL 7.9 MG/DL (8.8-10.2); CREATININE FOR GFR 1.42 MG/DL (0.70-1.30); GLOMERULAR FILTRATION RATE 50.4 (>35); MAGNESIUM LEVEL 2.2 MG/DL (1.8-2.4); POTASSIUM SERUM 3.8 MEQ/L (3.5-5.1); TOTAL PROTEIN 5.2 GM/DL (6.4-8.2)
[2020-06-21 08:33] LABS: ATYPICAL LYMPH 4 % (0-5); EOSINOPHILS 11 % (0-3); LYMPHOCYTES 7 % (16-44); METAMYELOCYTES 1 % (0-0); MONOCYTES 3 % (0-5); NEUTROPHILS 73 % (28-66)
--- NOTE | 2020-06-21 08:35 | IPNPDOC ---
Text Note Date of Service The patient was seen on 06/21/20. NOTE No acute events overnight. He is tolerating clq diet without any problems. He is having some BMs, and ambulating the the bathroom. Denies nausea, emesis, fevers, or pains. He is hungry and wants solid foods. VSSAF NAD Abdomen soft, ND, incisions are C/D/I sarah drain in place with serosanguinous drainage. labs - below A) Acute cholecystitis/ POD 1 robotic assisted laparoscopic cholecystectomy. P) reg diet Encourage out of bed and incentive spirometer. stable for d/c home when cleared by medicine. Ok to remove drain when he goes home. Tex Antonio DO VS,Fishbone, I+O VS, Fishbone, I+O Laboratory Tests 06/21/20 07:24 Vital Signs Date Time Temp Pulse Resp B/P (MAP) Pulse Ox O2 Delivery O2 Flow Rate FiO2 06/21/20 06:00 97.3 83 18 128/62 (84) 94 Nasal Cannula 4.0 I&O- Last 24 Hours up to 6 AM 06/21/20 06:00 Intake Total 1940 ml Output Total 2210 ml Balance -270 ml ISAC ANTONIO DO Jun 21, 2020 08:35
[2020-06-21 08:38] LABS: PLATELET ESTIMATE NORMAL (NORMAL)
--- NOTE | 2020-06-21 09:36 | IPNPDOC ---
Date Seen The patient was seen on 06/21/20. Progress Note SUBJECTIVE: no issues overnight but still needing o2. pt denies sob,but still w occ cough w white sputum. tolerated his jello this am. no c/o pain no fever/chills, n/v. pod#2 s/p robotic assisted lap mariam by Dr. Miller. OBJECTIVE PHYSICAL EXAMINATION: vitals: see below GENERAL: Anicteric.aa0x 3 No jaundice. No use of respiratory accessory muscles. Able to complete sentences. HEENT No jugular venous distention thyromegaly, cervical lymphadenopathy, stridor, or carotid bruit. LUNGS: Diminished, No wheezing or rales. HEART: S1, S2, sinus rhythm. ABDOMEN: Obese, slightly tender, right upper quadrant. No rebound or guarding. Positive bowel sounds. right himanshu drain EXTREMITIES: No cyanosis or clubbing. LABORATORY DATA, IMAGING STUDIES, MICROBIOLOGY: Please see below. Chest CT June 17: Mucous plugging. Patchy infiltrate at the right base, consistent with reactive airway disease. Right pleural effusion. Pulmonary arterial hypertension. A 4 cm ascending thoracic aorta fusiform dilatation with no saccular component, possibly indicative of calcific aortic stenosis. A 10 mm noncalcified soft tissue nodule in the posterior segment of the right upper lobe. ASSESSMENT AND PLAN: This is an 84-year-old full code with past medical history significant for pulmonary hypertension, bladder cancer ([place]) who presented on June 14 with abdominal pain, shortness of breath, nausea, found to have a right lower lobe consolidation, acute hypoxemic respiratory failure, urine retention with abdominal pain, and renal failure. Patient was saturating 86% and required 2 liters of oxygen. 1. Right lower lobe status post ceftriaxone and doxycycline. Changed to Zosyn due to persistent elevated white count and new findings of acute cholecystitis. 2. Acute cholecystitis, on intravenous (IV) Zosyn, day #4. Ceftriaxone has been discontinued. s/p robotic assisted lap mariam dr. miller 06/19/20 pod#2.PRN pain meds. diet advanced by surgery to regualr diet 3. Acute hypoxemic respiratory failure due to pneumonia, community required, on supplemental oxygen, IV Zosyn#4, previously on IV ceftriaxone and doxycycline. recheck cxr. titrate o2 . 4. Reactive airway disease, worsened by pneumonia. Continue with breathing treatment. Respiratory panel was negative. 5. Hypertension, on chronic amlodipine and valsartan with holding parameters. 6. Chronic kidney disease, stage III, at baseline creatinine. Monitor for fluid overload. 7. Type 2 diabetes. hypoglycemic protocol sliding scale w coverage. dispo: tuesday if tolerates diet. VS, I&O, 24H, Fishbone Vital Signs/I&O Vital Signs Date Time Temp Pulse Resp B/P (MAP) Pulse Ox O2 Delivery O2 Flow Rate FiO2 06/21/20 06:00 97.3 83 18 128/62 (84) 94 Nasal Cannula 4.0 I&O- Last 24 Hours up to 6 AM 06/21/20 06:00 Intake Total 1940 ml Output Total 2210 ml Balance -270 ml Laboratory Data 24H LABS Laboratory Tests 2 06/20/20 11:29: Bedside Glucose (Misc Panel) 162H 06/20/20 16:51: Bedside Glucose (Misc Panel) 108 06/20/20 20:15: Bedside Glucose (Misc Panel) 113H 06/21/20 07:24: Immature Granulocyte % (Auto) , Neutrophils (%) (Auto) , Nucleated Red Blood Cells % (auto) 0.0, Neutrophils 73H, Band Neutrophils 1, Lymphocytes (Manual) 7L, Monocytes (Manual) 3, Eosinophils (Manual) 11H, Metamyelocytes 1H, Atypical Lymphocytes 4, Platelet Estimate NORMAL, Anion Gap 8, Glomerular Filtration Rate 50.4, Calcium Level 7.9L, Magnesium Level 2.2, Total Bilirubin 0.4, Aspartate Amino Transf (AST/SGOT) 50H, Alanine Aminotransferase (ALT/SGPT) 81H, Alkaline Phosphatase 114, Total Protein 5.2L, Albumin 2.2L, Albumin/Globulin Ratio 0.7 06/21/20 08:25: Bedside Glucose (Misc Panel) 108 CBC/BMP Laboratory Tests 06/21/20 07:24 Microbiology Microbiology 06/14/20 Respiratory Virus Panel (PCR) ([facility]) - Final, Complete 06/14/20 Urine Culture - Final, Complete 06/14/20 Blood Culture - Final, Complete NO GROWTH AFTER 5 DAYS 06/14/20 Blood Culture - Final, Complete NO GROWTH AFTER 5 DAYS SCARLETT PATEL MD Jun 21, 2020 09:36
[2020-06-21] MEDS: HumaLOG INSULIN (NovoLOG) PER UNIT SC SCH ×4 (09:42→19:54)
[2020-06-21] MEDS: DOXYCYCLINE HYCLATE 100MG TABLET PO SCH ×2 (09:42→20:39)
[2020-06-21] MEDS: MULTIVITAMINS/MINERALS THERAP 1 TAB PO SCH (09:42)
[2020-06-21] MEDS: ASPIRIN 81MG ENTERIC TABLET PO SCH (09:42)
[2020-06-21 10:00] VITALS: BP 127/64
--- NOTE | 2020-06-21 11:14 | REP ---
INDICATION: sob. COMPARISON: Comparison chest x-ray June 14, 2020. TECHNIQUE: Portable upright AP chest radiograph. FINDINGS: Right hemidiaphragm is slightly elevated unchanged. There is a small granuloma in the left apex. Heart size is borderline. The 1 cm nodule seen in the perihilar region on the right on recent CT study is faintly visible. Lung powers are otherwise clear. There is no evidence of pleural effusion. A horizontally distributed catheter is seen in across the upper abdomen. No bony abnormality is seen.. IMPRESSION: Right perihilar soft tissue nodule. Otherwise no active disease.. <Electronically signed by Artie Montano > 06/21/20 1111
[2020-06-21] MEDS ORDERED: LEVO750T13 PO (13:32)
[2020-06-21] MEDS ORDERED: FLAG500T PO (13:32)
[2020-06-21] MEDS ORDERED: BACI1CAP PO (13:33)
[2020-06-21 14:00] VITALS: BP 127/65
[2020-06-21] MEDS: TAMSULOSIN 0.4 MG CAP PO SCH (20:37)
[2020-06-21] MEDS: VALSARTAN 80 MG TAB (DIOVAN) PO SCH (20:38)
[2020-06-21 22:00] VITALS: BP 131/56
[2020-06-22 02:00] VITALS: BP 127/58
[2020-06-22] MEDS: PIPERACILLIN/TAZOBACTAM SOD 3.375 GM in D5W MINI-BAG PLUS 50 ML IV SCH ×4 (03:00→20:50)
[2020-06-22 06:00] VITALS: BP 128/57
[2020-06-22 06:24] LABS: HEMATOCRIT 38.7 % (42.0-52.0); HEMOGLOBIN 12.5 g/dl (13.5-17.5); MEAN CORPUSCULAR HEMOGLOBIN 30.3 pg (27.0-33.0); MEAN CORPUSCULAR HGB CONC 32.3 g/dl (32.0-36.5); MEAN CORPUSCULAR VOLUME 93.9 fl (80.0-96.0); PLATELET COUNT, AUTOMATED 287 10^3/uL (150-450); RED BLOOD COUNT 4.12 10^6/uL (4.30-6.10); WHITE BLOOD COUNT 9.8 10^3/uL (4.0-10.0)
[2020-06-22 06:53] LABS: ALBUMIN 2.1 GM/DL (3.2-5.2); BILIRUBIN,TOTAL 0.5 MG/DL (0.2-1.0); CREATININE FOR GFR 1.36 MG/DL (0.70-1.30); POTASSIUM SERUM 3.8 MEQ/L (3.5-5.1); TOTAL PROTEIN 4.9 GM/DL (6.4-8.2)
[2020-06-22 07:37] LABS: ATYPICAL LYMPH 1 % (0-5); EOSINOPHILS 8 % (0-3); LYMPHOCYTES 5 % (16-44); METAMYELOCYTES 1 % (0-0); MONOCYTES 6 % (0-5); MYELOCYTES 1 % (0-0); NEUTROPHILS 78 % (28-66)
[2020-06-22 07:43] LABS: PLATELET ESTIMATE NORMAL (NORMAL)
--- NOTE | 2020-06-22 08:05 | IPNPDOC ---
Text Note Date of Service The patient was seen on 06/22/20. NOTE No acute events overnight. He is tolerating reg diet without any problems. He is having some BMs, and ambulating the the bathroom. Denies nausea, emesis, fevers, or pains. He is hungry and wants solid foods. VSSAF NAD Abdomen soft, ND, incisions are C/D/I sarah drain in place with serosanguinous drainage. labs - below A) Acute cholecystitis s/p robotic assisted laparoscopic cholecystectomy. P) reg diet Encourage out of bed and incentive spirometer. stable for d/c home remove drain f/u with in the office in 2 weeks. Tex Antonio DO VS,Danielle, I+O VS, Danielle, I+O Laboratory Tests 06/22/20 05:59 Vital Signs Date Time Temp Pulse Resp B/P (MAP) Pulse Ox O2 Delivery O2 Flow Rate FiO2 06/22/20 06:00 97.2 76 19 128/57 (80) 92 Nasal Cannula 1.0 I&O- Last 24 Hours up to 6 AM 06/22/20 06:00 Intake Total 2290 ml Output Total 2995 ml Balance -705 ml ISAC ANTONIO DO Jun 22, 2020 08:05
[2020-06-22] MEDS: HumaLOG INSULIN (NovoLOG) PER UNIT SC SCH ×4 (08:51→20:45)
[2020-06-22] MEDS: MULTIVITAMINS/MINERALS THERAP 1 TAB PO SCH (08:51)
[2020-06-22] MEDS: DOXYCYCLINE HYCLATE 100MG TABLET PO SCH ×2 (08:52→20:50)
[2020-06-22] MEDS: ASPIRIN 81MG ENTERIC TABLET PO SCH (08:52)
[2020-06-22 10:00] VITALS: BP 117/58
--- NOTE | 2020-06-22 10:14 | IPNPDOC ---
Date Seen The patient was seen on 06/22/20. Progress Note SUBJECTIVE: c/o [place] still needing 1-2l oxygen which is new. no cp,n/v. abd discomfort 1/10 pain scale when not moving. tolerating his diet. dc home postponed due to persistent hypoxia to be evaluated for fluid overload. pna treated with abx. pod#3 s/p robotic assisted lap mariam by Dr. Miller. OBJECTIVE PHYSICAL EXAMINATION: vitals: see below GENERAL: Anicteric.aa0x 3 No jaundice. No use of respiratory accessory muscles. Able to complete sentences. HEENT No jugular venous distention thyromegaly, cervical lymphadenopathy, stridor, or carotid bruit. LUNGS: Diminished, basilar crepitations. HEART: S1, S2, sinus rhythm. ABDOMEN: Obese, slightly tender, right upper quadrant. No rebound or guarding. Positive bowel sounds. right himanshu drain EXTREMITIES: No cyanosis or clubbing. LABORATORY DATA, IMAGING STUDIES, MICROBIOLOGY: Please see below. Chest CT June 17: Mucous plugging. Patchy infiltrate at the right base, consistent with reactive airway disease. Right pleural effusion. Pulmonary arterial hypertension. A 4 cm ascending thoracic aorta fusiform dilatation with no saccular component, possibly indicative of calcific aortic stenosis. A 10 mm noncalcified soft tissue nodule in the posterior segment of the right upper lobe. ASSESSMENT AND PLAN: This is an 84-year-old full code with past medical history significant for pulmonary hypertension, bladder cancer ([place]) who presented on June 14 with abdominal pain, shortness of breath, nausea, found to have a right lower lobe consolidation, acute hypoxemic respiratory failure, urine retention with abdominal pain, and renal failure. Patient was saturating 86% and required 2 liters of oxygen. 1. Right lower lobe status post ceftriaxone and doxycycline. Changed to Zosyn day 5 due to persistent elevated white count and new findings of acute cholecystitis. 2. Acute cholecystitis, on intravenous (IV) Zosyn, day #5. Ceftriaxone has been discontinued. s/p robotic assisted lap mariam dr. miller 06/19/20 pod#2.PRN pain meds. diet advanced by surgery to regualr diet 3. Acute hypoxemic respiratory failure due to MUCUS PLUGGING, pneumonia, community required, on supplemental oxygen, IV Zosyn#5, previously on IV ceftriaxone and doxycycline. recheck cxr. titrate o2 . ACAPELLA, PULMONARY TOILET, incenstive spirmetery 4. Reactive airway disease, worsened by pneumonia. Continue with breathing treatment. Respiratory panel was negative. 5. Hypertension, on chronic amlodipine and valsartan with holding parameters. 6. Chronic kidney disease, stage III, at baseline creatinine. Monitor for fluid overload. 7. Type 2 diabetes. hypoglycemic protocol sliding scale w coverage. dispo dc home tuesday. VS, I&O, 24H, Fishbone Vital Signs/I&O Vital Signs Date Time Temp Pulse Resp B/P (MAP) Pulse Ox O2 Delivery O2 Flow Rate FiO2 06/22/20 08:59 86 136/57 06/22/20 06:00 97.2 19 92 Nasal Cannula 1.0 I&O- Last 24 Hours up to 6 AM 06/22/20 06:00 Intake Total 2290 ml Output Total 2995 ml Balance -705 ml Laboratory Data 24H LABS Laboratory Tests 2 06/21/20 12:04: Bedside Glucose (Misc Panel) 148H 06/21/20 16:31: Bedside Glucose (Misc Panel) 88 06/21/20 19:49: Bedside Glucose (Misc Panel) 139H 06/22/20 05:59: Immature Granulocyte % (Auto) , Neutrophils (%) (Auto) , Nucleated Red Blood Cells % (auto) 0.0, Neutrophils 78H, Lymphocytes (Manual) 5L, Monocytes (Manual) 6H, Eosinophils (Manual) 8H, Metamyelocytes 1H, Myelocytes 1H, Atypical Lymphocytes 1, Giant Platelets , Platelet Estimate NORMAL, Anion Gap 5L, Glomerular Filtration Rate 53.0, Calcium Level 8.0L, Magnesium Level 2.0, Total Bilirubin 0.5, Aspartate Amino Transf (AST/SGOT) 57H, Alanine Aminotransferase (ALT/SGPT) 83H, Alkaline Phosphatase 103, Total Protein 4.9L, Albumin 2.1L, Albumin/Globulin Ratio 0.8 CBC/BMP Laboratory Tests 06/22/20 05:59 Microbiology Microbiology 06/14/20 Respiratory Virus Panel (PCR) ([facility]) - Final, Complete 06/14/20 Urine Culture - Final, Complete 06/14/20 Blood Culture - Final, Complete NO GROWTH AFTER 5 DAYS 06/14/20 Blood Culture - Final, Complete NO GROWTH AFTER 5 DAYS SCARLETT PATEL MD Jun 22, 2020 10:14
[2020-06-22 14:00] VITALS: BP 137/60
[2020-06-22] MEDS: TAMSULOSIN 0.4 MG CAP PO SCH (20:50)
[2020-06-22] MEDS: VALSARTAN 80 MG TAB (DIOVAN) PO SCH (20:50)
[2020-06-22 22:00] VITALS: BP 128/61
[2020-06-23 02:00] VITALS: BP 100/60
[2020-06-23] MEDS: PIPERACILLIN/TAZOBACTAM SOD 3.375 GM in D5W MINI-BAG PLUS 50 ML IV SCH ×2 (03:06→10:11)
[2020-06-23 06:00] VITALS: BP 122/59
[2020-06-23 06:21] LABS: HEMATOCRIT 38.1 % (42.0-52.0); HEMOGLOBIN 12.6 g/dl (13.5-17.5); MEAN CORPUSCULAR HEMOGLOBIN 30.6 pg (27.0-33.0); MEAN CORPUSCULAR HGB CONC 33.1 g/dl (32.0-36.5); MEAN CORPUSCULAR VOLUME 92.5 fl (80.0-96.0); PLATELET COUNT, AUTOMATED 302 10^3/uL (150-450); RED BLOOD COUNT 4.12 10^6/uL (4.30-6.10); WHITE BLOOD COUNT 11.8 10^3/uL (4.0-10.0)
[2020-06-23 06:38] LABS: ALBUMIN 2.3 GM/DL (3.2-5.2); BILIRUBIN,TOTAL 0.4 MG/DL (0.2-1.0); CALCIUM LEVEL 8.4 MG/DL (8.8-10.2); CREATININE FOR GFR 1.28 MG/DL (0.70-1.30); GLOMERULAR FILTRATION RATE 56.9 (>35)
[2020-06-23 07:04] LABS: EOSINOPHILS 8 % (0-3); LYMPHOCYTES 17 % (16-44); NEUTROPHILS 75 % (28-66); PLATELET ESTIMATE NORMAL (NORMAL)
[2020-06-23] MEDS: HumaLOG INSULIN (NovoLOG) PER UNIT SC SCH ×2 (07:30→12:00)
[2020-06-23 10:00] VITALS: BP 121/59
[2020-06-23] MEDS: DOXYCYCLINE HYCLATE 100MG TABLET PO SCH (10:09)
[2020-06-23] MEDS: ASPIRIN 81MG ENTERIC TABLET PO SCH (10:09)
[2020-06-23] MEDS: MULTIVITAMINS/MINERALS THERAP 1 TAB PO SCH (10:09)
[2020-06-23 10:10] VITALS: BP 126/59
--- NOTE | 2020-06-23 10:43 | DS.PDOC ---
Discharge Summary General Date of Admission Jun 14, 2020 at 10:34 Date of Discharge 06/23/20 Discharge Summary DISCHARGE DIAGNOSES: Acute cholecystitis Community acquired pneumonia Acute hypoxic respiratory failure secondary to pneumonia and mucous plugging Urine Retention failed on trial of voiding, required menezes at discharge Obesity, BMI 32.8 Hypertension Chronic kidney disease stage III History of reactive airway disease Hypertension Type 2 diabetes DISCHARGE MEDICATIONS: SEE BELOW DISCHARGE INSTRUCTIONS: DRAIN CARE PER SURGERY. SURGERY AND PCP FU IN 1 WK [employer]: GENERAL SURGERY DR MILLER PROCEDURE: 06/19/20 s/p robotic assisted lap mariam by Dr. Miller. HOSPITAL COURSE: This is an 84-year-old full code with past medical history significant for pulmonary hypertension, bladder cancer ([place]) who presented on June 14 with abdominal pain, shortness of breath, nausea, found to have a right lower lobe consolidation, acute hypoxemic respiratory failure, urine retention with abdominal pain, and renal failure. Patient was saturating 86% and required 2 liters of oxygen. 1. Right lower lobe pneumonia -status post ceftriaxone and doxycycline. -Changed to Zosyn day 6 due to persistent elevated white count and new findings of acute cholecystitis. 2. Acute cholecystitis, on intravenous (IV) -Zosyn, day #6. -Ceftriaxone has been discontinued. -s/p robotic assisted lap mariam dr. miller 06/19/20 pod#2.PRN pain meds. -diet advanced by surgery 3. Acute hypoxemic respiratory failure -due to MUCUS PLUGGING, pneumonia, community acquird - was on supplemental oxygen -IV Zosyn#6, previously on IV ceftriaxone and doxycycline. - ACAPELLA, PULMONARY TOILET, incentive spirometry -Resolved at discharge and does not require home oxygen 4. Reactive airway disease, -worsened by pneumonia and mucous plugging - Continue with breathing treatment. Respiratory panel was negative. 5. Hypertension, on chronic amlodipine and valsartan with holding parameters. 6. Chronic kidney disease, stage III, at baseline creatinine. Monitor for fluid overload. 7. Type 2 diabetes. hypoglycemic protocol sliding scale w coverage. 8. Urine retention -failed trial of voiding -flomax -menezes at discharge -outpt referral to urology. DISCHARGE PHYSICAL EXAMINATION: vitals: see below GENERAL: Anicteric.aa0x 3 No jaundice, No pallor No icterus No use of respiratory accessory muscles. Able to complete sentences. HEENT No jugular venous distention thyromegaly, cervical lymphadenopathy, stridor, or carotid bruit. LUNGS: Diminished, basilar crepitations. HEART: S1, S2, sinus rhythm. ABDOMEN: Obese, slightly tender, right upper quadrant. No rebound or guarding. Positive bowel sounds. right himanshu drain EXTREMITIES: No cyanosis or clubbing. LABORATORY DATA, IMAGING STUDIES, MICROBIOLOGY: Please see below. Chest CT June 17: Mucous plugging. Patchy infiltrate at the right base, consistent with reactive airway disease. Right pleural effusion. Pulmonary arterial hypertension. A 4 cm ascending thoracic aorta fusiform dilatation with no saccular component, possibly indicative of calcific aortic stenosis. A 10 mm noncalcified soft tissue nodule in the posterior segment of the right upper lobe. TIME SPENT ON DISCHARGE 30 MINUTES Vital Signs/I&Os Vital Signs Date Time Temp Pulse Resp B/P (MAP) Pulse Ox O2 Delivery O2 Flow Rate FiO2 06/23/20 10:10 80 126/59 06/23/20 06:00 98.0 18 94 Nasal Cannula 1.0 I&O- Last 24 Hours up to 6 AM 06/23/20 06:00 Intake Total 2780 ml Output Total 1575 ml Balance 1205 ml Laboratory Data Labs 24H Laboratory Tests 2 06/22/20 11:50: Bedside Glucose (Misc Panel) 99 06/22/20 16:26: Bedside Glucose (Misc Panel) 141H 06/22/20 19:58: Bedside Glucose (Misc Panel) 158H 06/23/20 05:50: Immature Granulocyte % (Auto) , Neutrophils (%) (Auto) , Nucleated Red Blood Cells % (auto) 0.0, Neutrophils 75H, Lymphocytes (Manual) 17, Eosinophils (M anual) 8H, Red Blood Cell Morphology NORMAL, Platelet Estimate NORMAL, Anion Gap 7L, Glomerular Filtration Rate 56.9, Calcium Level 8.4L, Magnesium Level 2.0, Total Bilirubin 0.4, Aspartate Amino Transf (AST/SGOT) 47H, Alanine Aminotransferase (ALT/SGPT) 79H, Alkaline Phosphatase 95, Total Protein 5.0L, Albumin 2.3L, Albumin/Globulin Ratio 0.9 CBC/BMP Laboratory Tests 06/23/20 05:50 FSBS Laboratory Tests Test 06/22/20 11:50 06/22/20 16:26 06/22/20 19:58 Range/Units Bedside Glucose (Misc Panel) 99 141 158 83-110 MG/DL Microbiology Microbiology 06/14/20 Respiratory Virus Panel (PCR) ([facility]) - Final, Complete 06/14/20 Urine Culture - Final, Complete 06/14/20 Blood Culture - Final, Complete NO GROWTH AFTER 5 DAYS 06/14/20 Blood Culture - Final, Complete NO GROWTH AFTER 5 DAYS Discharge Medications Scheduled Amlodipine Besylate (Amlodipine Besylate) 10 Mg Tab, 10 MG PO DAILY, (Reported) Aspirin (Aspirin EC) 81 Mg Tablet.dr, 81 MG PO DAILY, (Reported) Bacillus Coagulans (Bacid with Lactospore) 1 Each Capsule, 1 CAP PO [facility] Cholecalciferol (Vitamin D3) (Vitamin D3) 10 Mcg Tablet, 10 MCG PO DAILY, (Reported) Levofloxacin (Levofloxacin) 750 Mg Tablet, 750 MG PO Q48H Metformin HCl (Metformin HCl ER) 500 Mg Tab, 500 MG PO DAILY, (Reported) AFTER DINNER Metronidazole (Flagyl) 500 Mg Tablet, 500 MG PO Q8H Multivit-Min/FA/Lycopen/Lutein (Centrum Silver Tablet) 1 Tab Tab, 1 TAB PO QAM, (Reported) Valsartan/Hydrochlorothiazide (Valsartan-Hctz 320-12.5 mg Tab) 1 Tab Tab, 1 TAB PO QHS, (Reported) Allergies Coded Allergies: No Known Allergies (Unverified , 09/20/16) SCARLETT PATEL MD Jun 23, 2020 10:32
[2020-06-23] MEDS ORDERED: FLOM0.4C39 PO (10:44)
== END 2020-06-23 13:37 | disposition home health service (06) | DRG 987 ==
LOC: M ED 05:06 → M ED INP 10:34 → ENRESERV 11:03 → M MSPAV 12:48
PROVIDERS: ADMIT Internal Medicine; ATTEND General Practice
PROC: 8E0W4CZ Robotic Assisted Procedure of Trunk Region, Percutaneous Endoscopic Approach (ICD-10-PCS; 2020-06-19)
PROC: 0FT44ZZ Resection of Gallbladder, Percutaneous Endoscopic Approach (ICD-10-PCS; principal; 2020-06-19 15:30)
DX: J18.9 Pneumonia, unspecified organism (principal); J96.01 Acute respiratory failure with hypoxia; E87.2 Acidosis; K81.0 Acute cholecystitis; N18.30 Chronic kidney disease, stage 3 unspecified; E11.9 Type 2 diabetes mellitus without complications; I12.9 Hypertensive chronic kidney disease with stage 1 through stage 4 chronic kidney disease, or unspecified chronic kidney disease; E66.9 Obesity, unspecified; Z68.32 Body mass index [BMI] 32.0-32.9, adult; R33.9 Retention of urine, unspecified; I27.20 Pulmonary hypertension, unspecified; J45.909 Unspecified asthma, uncomplicated; Z79.82 Long term (current) use of aspirin; Z79.899 Other long term (current) drug therapy; Z85.51 Personal history of malignant neoplasm of bladder; M19.90 Unspecified osteoarthritis, unspecified site; Z96.652 Presence of left artificial knee joint

== ENCOUNTER 2020-08-20 12:41 | Inpatient (IN) | payer MEDICARE ==
[~2020-08-20] VITALS: Ht 177.8 cm; Wt 95.6 kg
[~2020-08-20 12:41] MED LIST changes: +ASPI81TA26 PO; +BACI1CAP PO; +CHOL400T PO; +FLAG500T PO; +FLOM0.4C39 PO; +LEVO750T13 PO
[2020-08-20] MEDS ORDERED: ACETAMINOPHEN TAB 650MG DOSE (2X325MG) PO PRN (15:45)
[2020-08-20] MEDS ORDERED: GLUCOSE 4GM CHEW TABLET PO PRN (15:45)
[2020-08-20] MEDS ORDERED: DEXTROSE 50% 50 ML SYRINGE IV PRN (15:45)
[2020-08-20] MEDS ORDERED: MIRALAX *UNIT DOSE* 17GM PACKET PO PRN (15:45)
[2020-08-20] MEDS ORDERED: GLUCAGON INJ 1MG VIAL SC PRN (15:45)
[2020-08-20] MEDS ORDERED: BISACODYL 10 MG SUPP PR PRN (15:45)
[2020-08-20] MEDS: REMEDY PHYTOPLEX Z-GUARD PASTE 113GM TUBE (FROM STOREROOM PRODUCT) TOP SCH ×2 (16:00→20:32)
[2020-08-20 16:15] VITALS: BP 161/76
[2020-08-20] MEDS ORDERED: BACI1CAP4 PO (16:28)
[2020-08-20] MEDS ORDERED: CLOP75TA2 PO (16:28)
[2020-08-20] MEDS ORDERED: ATOR80TA59 PO (16:28)
[2020-08-20] MEDS ORDERED: AMLO1TAB25 PO (16:28)
[2020-08-20] MEDS ORDERED: VALS320T2 PO (16:28)
[2020-08-20] MEDS ORDERED: ENOX40IN3 SC (16:28)
[2020-08-20] MEDS ORDERED: ACET-910 PO (16:28)
[2020-08-20] MEDS ORDERED: TAMS1CAP17 PO (16:28)
[2020-08-20] MEDS ORDERED: METF-838 PO (16:28)
[2020-08-20] MEDS ORDERED: D31000TA2 PO (16:28)
[2020-08-20] MEDS ORDERED: ASPI1CHW3 PO (16:28)
[2020-08-20] MEDS ORDERED: CENT1TAB PO (16:28)
[2020-08-20] MEDS: HumaLOG INSULIN (NovoLOG) PER UNIT SC SCH ×2 (18:06→20:32)
[2020-08-20 20:00] VITALS: BP 155/72
[2020-08-20] MEDS: DOCUSATE SODIUM 100MG CAPSULE PO SCH (20:32)
[2020-08-21 05:48] VITALS: BP 167/74
[2020-08-21 06:00] VITALS: BP 158/78
[2020-08-21] MEDS: **hydrALAZINE HCL** 25 MG TAB PO SCH ×3 (06:00→17:38)
[2020-08-21] MEDS: HumaLOG INSULIN (NovoLOG) PER UNIT SC SCH ×4 (07:14→22:04)
[2020-08-21] MEDS: MAGIC MOUTHWASH SUSPENSION BTL SSP SCH ×3 (07:30→16:59)
[2020-08-21] MEDS: hydroCHLOROthiazide 12.5 MG CAPSULE PO SCH (07:49)
[2020-08-21] MEDS: HEPARIN SOD (PORCINE) 5000UNITS/ML 1ML VIAL/SYRINGE SC SCH ×2 (07:49→21:48)
[2020-08-21] MEDS: METAMUCIL (PSYLLIUM) PACKET PO SCH (07:50)
[2020-08-21] MEDS: ATORVASTATIN 20 MG TAB PO SCH (07:50)
[2020-08-21 07:51] LABS: BASO # 0.1 10^3/uL (0.0-0.2); BASO % 0.8 % (0.0-1.0); EOS # 0.8 10^3/uL (0.0-0.5); EOS % 8.9 % (0.0-3.0); HEMATOCRIT 38.7 % (42.0-52.0); LYMPH % 11.4 % (24.0-44.0); MEAN CORPUSCULAR HEMOGLOBIN 30.7 pg (27.0-33.0); MEAN CORPUSCULAR HGB CONC 33.6 g/dl (32.0-36.5); MEAN CORPUSCULAR VOLUME 91.5 fl (80.0-96.0); MONO # 0.8 10^3/uL (0.0-0.8); MONO % 9.4 % (2.0-8.0); NEUTROPHILS # 6.1 10^3/uL (1.5-8.5); NEUTROPHILS % 68.9 % (36.0-66.0); PLATELET COUNT, AUTOMATED 229 10^3/uL (150-450); RED BLOOD COUNT 4.23 10^6/uL (4.30-6.10); WHITE BLOOD COUNT 8.9 10^3/uL (4.0-10.0)
[2020-08-21] MEDS: DOCUSATE SODIUM 100MG CAPSULE PO SCH ×2 (07:51→21:47)
[2020-08-21] MEDS: CLOPIDOGREL 75 MG TAB PO SCH (07:51)
[2020-08-21] MEDS: PANTOPRAZOLE 40MG TAB (PROTONIX) PO SCH (07:51)
[2020-08-21] MEDS: ASPIRIN 81MG ENTERIC TABLET PO SCH (07:51)
[2020-08-21] MEDS: REMEDY PHYTOPLEX Z-GUARD PASTE 113GM TUBE (FROM STOREROOM PRODUCT) TOP SCH ×3 (07:52→22:03)
[2020-08-21] MEDS: COMBIVENT RESPIMAT 100-20MCG INHALER 4GM INH SCH ×3 (08:00→20:27)
[2020-08-21 08:08] LABS: ALBUMIN 2.9 GM/DL (3.2-5.2); BILIRUBIN,TOTAL 0.7 MG/DL (0.2-1.0); CALCIUM LEVEL 8.3 MG/DL (8.8-10.2); CREATININE FOR GFR 1.37 MG/DL (0.70-1.30); GLOMERULAR FILTRATION RATE 52.4 (>35); POTASSIUM SERUM 3.9 MEQ/L (3.5-5.1); TOTAL PROTEIN 5.9 GM/DL (6.4-8.2)
--- NOTE | 2020-08-21 08:23 | HPEPDOC ---
Quality Control Microbiologist Note DATE OF ADMISSION: 08-20-20 DATE OF SERVICE: 08-21-20 TIME OF ADMISSION: Please refer to physician's admission order. SOURCE OF ADMISSION INFORMATION: [facility] record and patient CHIEF COMPLAINT: stroke HISTORY OF PRESENT ILLNESS: 85M right handed man with pmh HTN, DM, BPH on aspirin at home who presented to [facility] 08-14-20 with dizziness and left sided weakness. Of note he had recently been hospitalized for cholecystectomy and PNA. Stroke work-up was initiated with CTA showing no intracranial occlusion and 50% narrowing of the left ICA. He was unable to receive TPA and not a candidate for thrombectomy given no proximal occlusion. 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 No evidence for acute hemorrhage and he was followed closely by neurology for ischemic stroke. He was started on high dose statin and instructed to take Plavix in addition to his ASA for 21 days to fco then to continue on ASA alone. He had dysphagia due to stroke, weakness in mobility and ADLs and deemed medically appropriate for discharge to ARU on 08-20-20. REVIEW OF SYSTEMS: The following is a completed review of systems and has been reviewed. Review of systems otherwise unremarkable. PAIN: Patient self reports no pain. EYES: No recent vision changes EARS, NOSE, & THROAT: +dysphagia, CARDIOVASCULAR: Denies chest pain or palpitations PULMONARY: Denies shortness of breath, + cough and wheeze GASTROINTESTINAL: Denies constipation/diarrhea GENITOURINARY: +menezes MUSCULOSKELETAL: left sided weakness NEUROLOGICAL:left sided paresis HEMATOLOGICAL: denies easy bruising SKIN:no rash PSYCHIATRIC: Unremarkable All other review of systems found to be negative. PAST MEDICAL HISTORY: as per HPI PAST SURGICAL HISTORY: As per HPI and left THR ALLERGIES: Please see below. MEDICATIONS: Please see below. SOCIAL HISTORY: Former smoker, no etoh/illicit drugs DIET: level 2 PHYSICAL EXAMINATION: VITAL SIGNS: Please see below. GENERAL: Pleasant and cooperative. No acute distress. + left facial droop, tongue moist HEENT: PERRL. Extraocular movements intact. Clear conjunctiva CARDIOVASCULAR: Regular rate and rhythm. No murmurs, rubs, or gallops LUNGS: + scattered wheeze ABDOMEN: Soft, nontender, nondistended. Positive bowel sounds. Normal active bowel sounds NEUROLOGICAL: Alert and oriented times three. Cranial nerves II through XII grossly intact. Sensation grossly intact, mild inattention to left side EXTREMITIES: 5\5 strength RUE, 4+ LUE 5\5 strength right lower extremity. 5/5 strength in left lower extremity. SKIN: no sacral ulcers LABORATORY DATA: Please see below. IMAGING:Imaging documentation personally reviewed by record FUNCTIONAL STATUS: Premorbid: Independent with all activities of daily life as well as mobility On Admission: Min assist bed mobility, functional transfers, ambulating, dressing, toileting GOALS: Mod-I bed mobility, functional transfers, ambulating, dressing, toileting, bathing ASSESSMENT:85-year-old M with past medical history of HTN who presents status post stroke PLAN: 1. REhab- PT/OT advance mobility and ADLs, strengthen/stretch/ maintain ROM all 4limbs 2. 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 cardiac- HTN c/u BP meds, will start on lower dose of Valsartan and increase prn given he was not taking it while at [facility] -recent EHCO + grade 2 diastolic dysfunction, fluid restrict, daily weights, on HCTZ -HLD c/u statin 4. Resp- patient presenting with mild cough and wheeze one exam with reported recent PNA, will start combivent, guaifenesin, and order CXR and sputum cx, he denies fever, no leukocytosis, no concern for acute infection at this time, but will monitor -aspiration precautions, oral care 5. GI ppx- protonix 6. DVT ppx- heparin and teds 7. Pain- tylenol 8. ENdo- hx of DM c/u ISS will consider restarting metformin 9. DGU- hx of BPH, d/c menezes and start TOV 10. Dispo- TBD POST ADMISSION PHYSICIAN EVALUATION: Medical and functional status: Description of medical status, medical assessment: As above. Rehabilitation diagnosis and current and prior cold morbid medical conditions as above. Risk of complications and plans to mitigate them as above. Description of functional status current status is as above. Prior status as above. Status compared to preadmission: There are no clinically significant differences between the patient's current status and the information described on the preadmission screening document. Treatment plan anticipated: Treatment plan is as described above. Required disciplines including physical therapy, occupational therapy, others as noted above Intensity of services: 3 hours a day, 6 days a week. Special considerations: There are no specific special or safety considerations that would likely preclude immediate implementation of an intensive rehabilitation program or subsequently influence the plan of care ATTESTATION: Considering all the information above, it is my best judgment that this patient requires intensive rehabilitation therapy as described above and an inpatient hospital environment due to the complexity of nursing, medical, and rehabilitation needs required by the patient. Furthermore, this patient can reasonably be expected to participate in an benefit from an inpatient rehabilitation stay with an interdisciplinary team approach to the delivery of rehabilitation care under the direction and supervision of rehabilitation physician. PROGNOSIS: Excellent ESTIMATED LENGTH OF STAY:12-16 days. PROJECTED DISCHARGE DESTINATION: Home with family support and any durable medical equipment required to increase functional safety and mobility. TIME SPENT COUNSELING AND COORDINATING INITIAL CARE: Greater than 70 minutes. Vital Signs Vital Sign - Last 24 Hours 08/20/20 08/20/20 08/21/20 08/21/20 16:15 20:00 05:48 06:00 Temp 98.2 98.2 97.8 Pulse 92 62 60 Resp 18 19 17 B/P (MAP) 161/76 (104) 155/72 (99) 167/74 (105) 158/78 (104) Pulse Ox 96 93 94 O2 Delivery Room Air Room Air Room Air 08/21/20 07:49 B/P (MAP) 150/60 Laboratory Data CBC/BMP Laboratory Tests 08/21/20 07:22 Labs 24H Laboratory Tests 2 08/20/20 16:39: Bedside Glucose (Misc Panel) 101 08/20/20 19:51: Bedside Glucose (Misc Panel) 131H 08/21/20 06:21: Bedside Glucose (Misc Panel) 95 08/21/20 07:22: Immature Granulocyte % (Auto) 0.6, Neutrophils (%) (Auto) 68.9H, Lymphocytes (%) (Auto) 11.4L, Monocytes (%) (Auto) 9.4H, Eosinophils (%) (Auto) 8.9H, Basophils (%) (Auto) 0.8, Neutrophils # (Auto) 6.1, Lymphocytes # (Auto) 1.0L, Monocytes # (Auto) 0.8, Eosinophils # (Auto) 0.8H, Basophils # (Auto) 0.1, Nucleated Red Blood Cells % (auto) 0.0, Anion Gap 5L, Glomerular Filtration Rate 52.4, Calcium Level 8.3L, Total Bilirubin 0.7, Aspartate Amino Transf (AST/SGOT) 23, Alanine Aminotransferase (ALT/SGPT) 21, Alkaline Phosphatase 86, Total Protein 5.9L, Albumin 2.9L, Albumin/Globulin Ratio 1.0 FSBS Laboratory Tests Test 08/20/20 16:39 08/20/20 19:51 08/21/20 06:21 Range/Units Bedside Glucose (Misc Panel) 101 131 95 83-110 MG/DL Home Medications Scheduled Amlodipine Besylate (Amlodipine Besylate) 10 Mg Tablet, 10 MG PO DAILY, (Reported) Aspirin (Aspirin) 81 Mg Tab.chew, 81 MG PO DAILY, (Reported) Atorvastatin Calcium (Atorvastatin Calcium) 80 Mg Tablet, 80 MG PO DAILY, (Reported) Bacillus Coagulans/Inulin (Probiotic Formula Capsule) 1 Each Capsule, 1 CAP PO DAILY, (Reported) Cholecalciferol (Vitamin D3) (Vitamin D3) 1,000 Unit Tablet, 1,000 UNITS PO DAILY, (Reported) Clopidogrel Bisulfate (Clopidogrel) 75 Mg Tablet, 75 MG PO DAILY, (Reported) Enoxaparin Sodium (Enoxaparin Sodium) 40 Mg/0.4 Ml Syringe, 40 MG SC DAILY, (Reported) Metformin HCl (Metformin HCl ER) 500 Mg Tab.er.24h, 500 MG PO DAILY, (Reported) Multivit-Min/FA/Lycopen/Lutein (Centrum Silver Tablet) 1 Each Tablet, 1 TAB PO DAILY, (Reported) Tamsulosin Hcl (Tamsulosin HCl) 0.4 Mg Capsule, 0.4 MG PO DAILY, (Reported) Valsartan/Hydrochlorothiazide (Valsartan-Hctz 320-12.5 mg Tab) 1 Each Tablet, 1 TAB PO DAILY, (Reported) Scheduled PRN Acetaminophen (Acetaminophen) 325 Mg Tablet, 650 MG PO Q4H PRN for MILD PAIN (PS 1-4), (Reported) Allergies Coded Allergies: NSAIDS (Non-Steroidal Anti-Inflamma (Verified Adverse Reaction, Intermediate, renal impairment, 08/20/20) A-FIB/CHADSVASC A-FIB History Current/History of A-Fib/PAF?: No Current PO Anticoag Therapy: No RENZO KAPOOR MD Aug 21, 2020 08:23
[2020-08-21] MEDS ORDERED: TAMSULOSIN 0.4 MG CAP PO ONE (08:40)
--- NOTE | 2020-08-21 08:46 | REP ---
INDICATION: wheeze COMPARISON: 06/21/2020 TECHNIQUE: PA and lateral. FINDINGS: Mediastinum and cardiac silhouette are normal. Frontal radiograph is relatively unremarkable. However, lateral radiograph suggest the possibility of lower lobe airspace disease possibly left infrahilar/retrocardiac in nature. No effusion. No pneumothorax. IMPRESSION: Cannot definitively exclude lower lobe infiltrate. Correlation with auscultation and physical examination is recommended. <Electronically signed by Jb Duran > 08/21/20 1727
[2020-08-21] MEDS ORDERED: PILL CUTTER 1 EACH XX PRN (08:50)
[2020-08-21] MEDS ORDERED: TAMSULOSIN 0.4 MG CAP PO SCH (09:00)
[2020-08-21] MEDS ORDERED: VALSARTAN 80 MG TAB (DIOVAN) PO SCH (09:00)
[2020-08-21] MEDS: guaiFENesin 200 MG TAB PO SCH ×3 (10:00→21:47)
[2020-08-21] MEDS: SALIVA SUBSTITUTE(MOUTHKOTE) BTL MT SCH ×4 (10:00→21:46)
[2020-08-21] MEDS: SODIUM CHLORIDE NASAL 0.65% SPRAY BTL (OCEAN) SCH ×3 (10:01→21:46)
[2020-08-21] MEDS: FLUTICASONE PROP 0.05% NASAL SPRAY 16 GM (FLONASE) NARES SCH ×2 (10:01→21:47)
[2020-08-21 14:00] VITALS: BP 142/45
[2020-08-21] MEDS ORDERED: AMPICILLIN SOD/SULBACTAM SOD 3 GM in D5W MINI-BAG PLUS 50 ML IV SCH (17:15)
[2020-08-21 17:45] VITALS: BP 132/60
--- NOTE | 2020-08-21 19:08 | CR.PDOC ---
General Date of Consultation: Aug 21, 2020 Consultation REASON FOR CONSULTATION/CHIEF COMPLAINT: Medical comanagement HISTORY OF PRESENT ILLNESS: Mr. Nicholas is an 85-year-old male with hypertension and diabetes mellitus who initially presented to [facility] for right MCA stroke and transferred here for rehabilitation. Patient has residual left-sided weakness and left facial droop. When I saw patient, he is in good spirits. Denies any fever or chills, chest pain, abdominal pain, diarrhea, or dysuria. He does report having a cough with thin liquids. It's better when he takes thickened liquids. He uses an acapella which helps him clear sputum. ALLERGIES: Please see below. HOME MEDICATIONS: Please see below. PAST MEDICAL HISTORY: 1. Hypertension 2. Arthritis 3. Non-insulin dependent diabetes mellitus 4. Bladder cancer 5. 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 Cystoscopy 2. Left knee replaced 3. Cholecystectomy FAMILY HISTORY: Father: at 38 yo. from [facility] [place] Mother: at 78 yo. Unknown cause to passing SOCIAL HISTORY: Tobacco use: Former smoker ETOH: Denies Illicit drug use: Denies REVIEW OF SYSTEMS: CONSTITUTIONAL: Denies any fever or chills. ENT: Denies sore throat. RESPIRATORY: Denies shortness of breath. Reports cough with thin liquids, does better with thick liquids. CARDIOVASCULAR: Denies chest pain. GASTROINTESTINAL: Denies abdominal pain. Denies diarrhea. GENITOURINARY: Denies dysuria. CUTANEOUS: Denies rashes. MUSCULOSKELETAL: Reports left-sided weakness and left facial droop. NEUROLOGICAL: Denies paresthesias. PSYCHOLOGICAL: Denies anxiety. Denies depression. PHYSICAL EXAMINATION: VITAL SIGNS: Please see below. GENERAL: Comfortable, in no apparent distress. HEENT: Left-sided facial droop, EOMI, sclera clear. NECK: Supple. RESPIRATORY: Lungs clear to auscultation bilaterally, no rales, wheeze or rhonchi. CARDIOVASCULAR: Regular rate and rhythm. ABDOMEN: Soft, nontender, no guarding or rebound tenderness. Normal bowel sounds. MUSCLE SKELETAL: Left upper extremity is weaker than right. NEUROLOGICAL: CN 312 grossly intact except for left facial droop PSYCHOLOGICAL: Normal mood and affect LABORATORY DATA: Please see below. ASSESSMENT/PLAN: 1. Right MCA stroke with residual left-sided weakness and left facial droop Patient is in acute rehabilitation Continue aspirin, Plavix, and statin 2. Left-sided facial droop and dysphagia Patient has cough with thin liquids Does better with thickened liquids ST therapy following, recommendations appreciated 3. Possible left lower infiltrate This would be secondary to aspiration pneumonia We'll order pro-calcitonin. If low can discontinue antibiotics Started patient on Unasyn 4. Hypertension Continue amlodipine, hydrochlorothiazide, valsartan, and when necessary hydralazine 5. BPH Continue tamsulosin 6. Diabetes mellitus Continue sliding scale insulin 7. DVT prophylaxis Heparin subcutaneous Disposition: Per ARU Vital Signs/I&O Vital Signs Date Time Temp Pulse Resp B/P (MAP) Pulse Ox O2 Delivery O2 Flow Rate FiO2 08/21/20 17:45 132/60 (84) 08/21/20 14:00 98.0 90 18 96 Room Air I&O- Last 24 Hours up to 6 AM 08/21/20 06:00 Intake Total 75 ml Output Total 200 ml Balance -125 ml Laboratory Data Labs 24H Laboratory Tests 2 08/20/20 19:51: Bedside Glucose (Misc Panel) 131H 08/21/20 06:21: Bedside Glucose (Misc Panel) 95 08/21/20 07:22: Immature Granulocyte % (Auto) 0.6, Neutrophils (%) (Auto) 68.9H, Lymphocytes (%) (Auto) 11.4L, Monocytes (%) (Auto) 9.4H, Eosinophils (%) (Auto) 8.9H, Basophils (%) (Auto) 0.8, Neutrophils # (Auto) 6.1, Lymphocytes # (Auto) 1.0L, Monocytes # (Auto) 0.8, Eosinophils # (Auto) 0.8H, Basophils # (Auto) 0.1, Nucleated Red Blood Cells % (auto) 0.0, Anion Gap 5L, Glomerular Filtration Rate 52.4, Calcium Level 8.3L, Total Bilirubin 0.7, Aspartate Amino Transf (AST/SGOT) 23, Alanine Aminotransferase (ALT/SGPT) 21, Alkaline Phosphatase 86, Total Protein 5.9L, Albumin 2.9L, Albumin/Globulin Ratio 1.0 08/21/20 11:26: Bedside Glucose (Misc Panel) 170H 08/21/20 16:32: Bedside Glucose (Misc Panel) 128H CBC/BMP Laboratory Tests 08/21/20 07:22 Allergies Coded Allergies: NSAIDS (Non-Steroidal Anti-Inflamma (Verified Adverse Reaction, Intermediate, renal impairment, 08/20/20) Home Medications Scheduled Amlodipine Besylate (Amlodipine Besylate) 10 Mg Tablet, 10 MG PO DAILY, (Reported) Aspirin (Aspirin) 81 Mg Tab.chew, 81 MG PO DAILY, (Reported) Atorvastatin Calcium (Atorvastatin Calcium) 80 Mg Tablet, 80 MG PO DAILY, (Reported) Bacillus Coagulans/Inulin (Probiotic Formula Capsule) 1 Each Capsule, 1 CAP PO DAILY, (Reported) Cholecalciferol (Vitamin D3) (Vitamin D3) 1,000 Unit Tablet, 1,000 UNITS PO DAILY, (Reported) Clopidogrel Bisulfate (Clopidogrel) 75 Mg Tablet, 75 MG PO DAILY, (Reported) Enoxaparin Sodium (Enoxaparin Sodium) 40 Mg/0.4 Ml Syringe, 40 MG SC DAILY, (Reported) Metformin HCl (Metformin HCl ER) 500 Mg Tab.er.24h, 500 MG PO DAILY, (Reported) Multivit-Min/FA/Lycopen/Lutein (Centrum Silver Tablet) 1 Each Tablet, 1 TAB PO DAILY, (Reported) Tamsulosin Hcl (Tamsulosin HCl) 0.4 Mg Capsule, 0.4 MG PO DAILY, (Reported) Valsartan/Hydrochlorothiazide (Valsartan-Hctz 320-12.5 mg Tab) 1 Each Tablet, 1 TAB PO DAILY, (Reported) Scheduled PRN Acetaminophen (Acetaminophen) 325 Mg Tablet, 650 MG PO Q4H PRN for MILD PAIN (PS 1-4), (Reported) VERONICA GILL DO Aug 21, 2020 19:08
[2020-08-21] MEDS: AMPICILLIN SOD/SULBACTAM SOD 3 GM in D5W MINI-BAG PLUS 100 ML IV SCH (19:32)
[2020-08-21 20:14] VITALS: BP 131/60
[2020-08-22] MEDS: AMPICILLIN SOD/SULBACTAM SOD 3 GM in D5W MINI-BAG PLUS 100 ML IV SCH ×3 (00:51→12:42)
[2020-08-22] MEDS: **hydrALAZINE HCL** 25 MG TAB PO SCH ×6 (07:03→23:33)
[2020-08-22 07:09] VITALS: BP 127/62
[2020-08-22] MEDS: SALIVA SUBSTITUTE(MOUTHKOTE) BTL MT SCH ×4 (07:48→20:10)
[2020-08-22] MEDS: MAGIC MOUTHWASH SUSPENSION BTL SSP SCH ×3 (07:48→16:55)
[2020-08-22] MEDS: FLUTICASONE PROP 0.05% NASAL SPRAY 16 GM (FLONASE) NARES SCH ×2 (07:48→20:09)
[2020-08-22] MEDS: SODIUM CHLORIDE NASAL 0.65% SPRAY BTL (OCEAN) SCH ×3 (07:48→20:09)
[2020-08-22] MEDS: TAMSULOSIN 0.4 MG CAP PO SCH (07:49)
[2020-08-22] MEDS: HumaLOG INSULIN (NovoLOG) PER UNIT SC SCH ×4 (07:49→20:02)
[2020-08-22] MEDS: PANTOPRAZOLE 40MG TAB (PROTONIX) PO SCH (07:50)
[2020-08-22] MEDS: DOCUSATE SODIUM 100MG CAPSULE PO SCH ×2 (07:50→20:09)
[2020-08-22] MEDS: CLOPIDOGREL 75 MG TAB PO SCH (07:50)
[2020-08-22] MEDS: guaiFENesin 200 MG TAB PO SCH ×3 (07:50→20:09)
[2020-08-22] MEDS: ASPIRIN 81MG ENTERIC TABLET PO SCH (07:50)
[2020-08-22] MEDS: REMEDY PHYTOPLEX Z-GUARD PASTE 113GM TUBE (FROM STOREROOM PRODUCT) TOP SCH ×3 (07:51→20:10)
[2020-08-22] MEDS: ATORVASTATIN 20 MG TAB PO SCH (07:51)
[2020-08-22] MEDS: METAMUCIL (PSYLLIUM) PACKET PO SCH (07:51)
[2020-08-22] MEDS: HEPARIN SOD (PORCINE) 5000UNITS/ML 1ML VIAL/SYRINGE SC SCH ×2 (07:51→20:09)
[2020-08-22] MEDS: hydroCHLOROthiazide 12.5 MG CAPSULE PO SCH (07:54)
[2020-08-22] MEDS: VALSARTAN 80 MG TAB (DIOVAN) PO SCH (07:55)
[2020-08-22] MEDS: COMBIVENT RESPIMAT 100-20MCG INHALER 4GM INH SCH ×4 (08:05→23:16)
[2020-08-22 08:07] LABS: HEMATOCRIT 42.2 % (42.0-52.0); MEAN CORPUSCULAR HEMOGLOBIN 30.4 pg (27.0-33.0); MEAN CORPUSCULAR HGB CONC 33.2 g/dl (32.0-36.5); MEAN CORPUSCULAR VOLUME 91.7 fl (80.0-96.0); PLATELET COUNT, AUTOMATED 254 10^3/uL (150-450); WHITE BLOOD COUNT 9.5 10^3/uL (4.0-10.0)
[2020-08-22 08:37] LABS: CALCIUM LEVEL 8.8 MG/DL (8.8-10.2); CREATININE FOR GFR 1.45 MG/DL (0.70-1.30); GLOMERULAR FILTRATION RATE 49.1 (>35); POTASSIUM SERUM 3.6 MEQ/L (3.5-5.1)
[2020-08-22 14:00] VITALS: BP 119/58
--- NOTE | 2020-08-22 17:17 | REP ---
INDICATION: r/o aspiration. COMPARISON: None. TECHNIQUE: The procedure was performed by Myah Marroquin [facility], under the direct supervision of Dr. Fernández. The procedure was performed with Patsy Lim from speech pathology present. 5 ml aliquots of thin, pudding, mixed fruit with a nectar base, soft food, and nectar thick consistency barium was administered. FINDINGS: Both penetration and aspiration were visualized with thin consistency barium. The detailed report of this examination will be provided by speech pathology. IMPRESSION: Aspiration and penetration were visualized, a detailed report will be provided by speech pathology. 2.2 minutes of fluoroscopy time was utilized for this procedure. Some fluoroscopic images are performed with last image hold technology. These images require no additional radiation <Electronically signed by Myah Marroquin > 08/22/20 1243 <Electronically signed by Matty Fernández > 08/22/20 [id number]
[2020-08-22 20:00] VITALS: BP 133/63
[2020-08-23 06:00] VITALS: BP 144/67
[2020-08-23] MEDS: **hydrALAZINE HCL** 25 MG TAB PO SCH ×4 (06:14→23:52)
[2020-08-23] MEDS: COMBIVENT RESPIMAT 100-20MCG INHALER 4GM INH SCH ×3 (07:04→21:52)
[2020-08-23 08:04] LABS: HEMATOCRIT 38.1 % (42.0-52.0); HEMOGLOBIN 12.6 g/dl (13.5-17.5); MEAN CORPUSCULAR HEMOGLOBIN 30.1 pg (27.0-33.0); MEAN CORPUSCULAR HGB CONC 33.1 g/dl (32.0-36.5); MEAN CORPUSCULAR VOLUME 91.1 fl (80.0-96.0); PLATELET COUNT, AUTOMATED 253 10^3/uL (150-450); RED BLOOD COUNT 4.18 10^6/uL (4.30-6.10); WHITE BLOOD COUNT 9.7 10^3/uL (4.0-10.0)
[2020-08-23 08:24] LABS: CALCIUM LEVEL 8.8 MG/DL (8.8-10.2); CREATININE FOR GFR 1.64 MG/DL (0.70-1.30); GLOMERULAR FILTRATION RATE 42.6 (>35); POTASSIUM SERUM 3.6 MEQ/L (3.5-5.1)
[2020-08-23] MEDS: FLUTICASONE PROP 0.05% NASAL SPRAY 16 GM (FLONASE) NARES SCH ×2 (08:33→20:48)
[2020-08-23] MEDS: SODIUM CHLORIDE NASAL 0.65% SPRAY BTL (OCEAN) SCH ×3 (08:33→20:49)
[2020-08-23] MEDS: HEPARIN SOD (PORCINE) 5000UNITS/ML 1ML VIAL/SYRINGE SC SCH ×2 (08:34→20:48)
[2020-08-23] MEDS: HumaLOG INSULIN (NovoLOG) PER UNIT SC SCH ×4 (08:34→20:46)
[2020-08-23] MEDS: METAMUCIL (PSYLLIUM) PACKET PO SCH (08:35)
[2020-08-23] MEDS: MAGIC MOUTHWASH SUSPENSION BTL SSP SCH ×4 (08:36→20:48)
[2020-08-23] MEDS: SALIVA SUBSTITUTE(MOUTHKOTE) BTL MT SCH ×4 (08:36→20:48)
[2020-08-23] MEDS: DOCUSATE SODIUM 100MG CAPSULE PO SCH ×2 (08:36→20:47)
[2020-08-23] MEDS: VALSARTAN 80 MG TAB (DIOVAN) PO SCH (08:37)
[2020-08-23] MEDS: guaiFENesin 200 MG TAB PO SCH ×3 (08:38→20:48)
[2020-08-23] MEDS: ASPIRIN 81MG ENTERIC TABLET PO SCH (08:38)
[2020-08-23] MEDS: TAMSULOSIN 0.4 MG CAP PO SCH (08:38)
[2020-08-23] MEDS: PANTOPRAZOLE 40MG TAB (PROTONIX) PO SCH (08:38)
[2020-08-23] MEDS: CLOPIDOGREL 75 MG TAB PO SCH (08:38)
[2020-08-23] MEDS: ATORVASTATIN 20 MG TAB PO SCH (08:38)
[2020-08-23] MEDS: REMEDY PHYTOPLEX Z-GUARD PASTE 113GM TUBE (FROM STOREROOM PRODUCT) TOP SCH ×3 (08:39→20:49)
[2020-08-23] MEDS: hydroCHLOROthiazide 12.5 MG CAPSULE PO SCH (08:39)
[2020-08-23 14:00] VITALS: BP 145/64
[2020-08-23 20:00] VITALS: BP 130/60
[2020-08-24] MEDS ORDERED: COMBIVENT RESPIMAT 100-20MCG INHALER 4GM INH ONE (00:45)
[2020-08-24] MEDS: **hydrALAZINE HCL** 25 MG TAB PO SCH ×3 (05:52→17:24)
[2020-08-24 06:00] VITALS: BP 150/62
[2020-08-24] MEDS: COMBIVENT RESPIMAT 100-20MCG INHALER 4GM INH SCH ×3 (07:08→20:46)
[2020-08-24 07:49] LABS: HEMATOCRIT 38.8 % (42.0-52.0); HEMOGLOBIN 12.9 g/dl (13.5-17.5); MEAN CORPUSCULAR HEMOGLOBIN 30.4 pg (27.0-33.0); MEAN CORPUSCULAR HGB CONC 33.2 g/dl (32.0-36.5); MEAN CORPUSCULAR VOLUME 91.5 fl (80.0-96.0); PLATELET COUNT, AUTOMATED 276 10^3/uL (150-450); RED BLOOD COUNT 4.24 10^6/uL (4.30-6.10); WHITE BLOOD COUNT 9.7 10^3/uL (4.0-10.0)
[2020-08-24 08:10] LABS: CALCIUM LEVEL 8.7 MG/DL (8.8-10.2); CREATININE FOR GFR 1.7 MG/DL (0.70-1.30); GLOMERULAR FILTRATION RATE 40.9 (>35); POTASSIUM SERUM 4.3 MEQ/L (3.5-5.1)
[2020-08-24] MEDS: SALIVA SUBSTITUTE(MOUTHKOTE) BTL MT SCH ×4 (09:42→20:40)
[2020-08-24] MEDS: MAGIC MOUTHWASH SUSPENSION BTL SSP SCH ×4 (09:42→20:40)
[2020-08-24] MEDS: PANTOPRAZOLE 40MG TAB (PROTONIX) PO SCH (09:43)
[2020-08-24] MEDS: METAMUCIL (PSYLLIUM) PACKET PO SCH (09:43)
[2020-08-24] MEDS: ASPIRIN 81MG ENTERIC TABLET PO SCH (09:43)
[2020-08-24] MEDS: CLOPIDOGREL 75 MG TAB PO SCH (09:43)
[2020-08-24] MEDS: DOCUSATE SODIUM 100MG CAPSULE PO SCH ×2 (09:43→20:39)
[2020-08-24] MEDS: guaiFENesin 200 MG TAB PO SCH ×3 (09:43→20:39)
[2020-08-24] MEDS: HumaLOG INSULIN (NovoLOG) PER UNIT SC SCH ×4 (09:43→20:41)
[2020-08-24] MEDS: ATORVASTATIN 20 MG TAB PO SCH (09:44)
[2020-08-24] MEDS: REMEDY PHYTOPLEX Z-GUARD PASTE 113GM TUBE (FROM STOREROOM PRODUCT) TOP SCH ×3 (09:44→20:42)
[2020-08-24] MEDS: HEPARIN SOD (PORCINE) 5000UNITS/ML 1ML VIAL/SYRINGE SC SCH ×2 (09:44→20:40)
[2020-08-24] MEDS: FLUTICASONE PROP 0.05% NASAL SPRAY 16 GM (FLONASE) NARES SCH ×2 (09:44→20:41)
[2020-08-24] MEDS: SODIUM CHLORIDE NASAL 0.65% SPRAY BTL (OCEAN) SCH ×3 (09:44→20:41)
[2020-08-24] MEDS: hydroCHLOROthiazide 12.5 MG CAPSULE PO SCH (09:45)
[2020-08-24] MEDS: TAMSULOSIN 0.4 MG CAP PO SCH (09:45)
[2020-08-24] MEDS: VALSARTAN 80 MG TAB (DIOVAN) PO SCH (10:01)
[2020-08-24 14:00] VITALS: BP 131/60
[2020-08-24] MEDS: CARVedilol 6.25 MG TAB PO SCH (20:40)
[2020-08-24 21:34] VITALS: BP 127/60
[2020-08-25] MEDS: **hydrALAZINE HCL** 25 MG TAB PO SCH ×5 (00:35→23:29)
[2020-08-25 06:13] VITALS: BP 129/60
[2020-08-25 07:03] LABS: HEMATOCRIT 37.6 % (42.0-52.0); HEMOGLOBIN 12.5 g/dl (13.5-17.5); LYMPH % 12.1 % (24.0-44.0); MEAN CORPUSCULAR HEMOGLOBIN 30.5 pg (27.0-33.0); MEAN CORPUSCULAR HGB CONC 33.2 g/dl (32.0-36.5); MEAN CORPUSCULAR VOLUME 91.7 fl (80.0-96.0); MONO % 8.3 % (2.0-8.0); PLATELET COUNT, AUTOMATED 287 10^3/uL (150-450); WHITE BLOOD COUNT 10.6 10^3/uL (4.0-10.0)
[2020-08-25 07:04] LABS: BASO # 0.1 10^3/uL (0.0-0.2); EOS # 1.2 10^3/uL (0.0-0.5); EOS % 11.3 % (0.0-3.0); LYMPH # 1.3 10^3/uL (1.5-5.0); MONO # 0.9 10^3/uL (0.0-0.8)
[2020-08-25] MEDS: COMBIVENT RESPIMAT 100-20MCG INHALER 4GM INH SCH ×3 (07:15→20:52)
[2020-08-25 07:25] LABS: CALCIUM LEVEL 9.1 MG/DL (8.8-10.2); CREATININE FOR GFR 1.62 MG/DL (0.70-1.30); GLOMERULAR FILTRATION RATE 43.2 (>35); POTASSIUM SERUM 3.6 MEQ/L (3.5-5.1)
[2020-08-25] MEDS: HumaLOG INSULIN (NovoLOG) PER UNIT SC SCH ×4 (07:51→20:21)
[2020-08-25] MEDS: guaiFENesin 200 MG TAB PO SCH ×3 (07:51→20:19)
[2020-08-25] MEDS: CARVedilol 6.25 MG TAB PO SCH ×2 (07:52→20:20)
[2020-08-25] MEDS: CLOPIDOGREL 75 MG TAB PO SCH (07:52)
[2020-08-25] MEDS: SALIVA SUBSTITUTE(MOUTHKOTE) BTL MT SCH ×4 (07:53→20:20)
[2020-08-25] MEDS: ASPIRIN 81MG ENTERIC TABLET PO SCH (07:53)
[2020-08-25] MEDS: MAGIC MOUTHWASH SUSPENSION BTL SSP SCH ×4 (07:53→20:20)
[2020-08-25] MEDS: TAMSULOSIN 0.4 MG CAP PO SCH (07:53)
[2020-08-25] MEDS: ATORVASTATIN 20 MG TAB PO SCH (07:53)
[2020-08-25] MEDS: METAMUCIL (PSYLLIUM) PACKET PO SCH (07:54)
[2020-08-25] MEDS: DOCUSATE SODIUM 100MG CAPSULE PO SCH ×2 (07:54→20:19)
[2020-08-25] MEDS: FLUTICASONE PROP 0.05% NASAL SPRAY 16 GM (FLONASE) NARES SCH ×2 (07:55→20:22)
[2020-08-25] MEDS: SODIUM CHLORIDE NASAL 0.65% SPRAY BTL (OCEAN) SCH ×3 (07:56→20:21)
[2020-08-25] MEDS: REMEDY PHYTOPLEX Z-GUARD PASTE 113GM TUBE (FROM STOREROOM PRODUCT) TOP SCH ×3 (07:58→20:22)
[2020-08-25] MEDS: PANTOPRAZOLE 40MG TAB (PROTONIX) PO SCH (07:58)
[2020-08-25] MEDS: HEPARIN SOD (PORCINE) 5000UNITS/ML 1ML VIAL/SYRINGE SC SCH ×2 (07:58→20:20)
[2020-08-25 14:00] VITALS: BP 133/62
--- NOTE | 2020-08-25 15:47 | IPNPDOC ---
PM&R Progress Note DATE OF SERVICE: Aug 25, 2020 Educational Resource Coordinator Progress Note Subjective: Patient seen in his room stating he feels good, his cough has improved, but that his right knee feels sore and mores swollen. He states he is urinating well. REVIEW OF SYSTEMS: The following is a completed review of systems and has been reviewed. Review of systems otherwise unremarkable. PAIN: Patient self reports no pain. EYES: No recent vision changes EARS, NOSE, & THROAT: +dysphagia, CARDIOVASCULAR: Denies chest pain or palpitations PULMONARY: Denies shortness of breath, + cough and wheeze (improving) GASTROINTESTINAL: Denies constipation/diarrhea GENITOURINARY: denies dysuria/retention MUSCULOSKELETAL: left sided weakness NEUROLOGICAL:left sided paresis HEMATOLOGICAL: denies easy bruising SKIN:no rash PSYCHIATRIC: Unremarkable All other review of systems found to be negative. PHYSICAL EXAMINATION: VITAL SIGNS: Please see below. GENERAL: Pleasant and cooperative. No acute distress. + left facial droop, tongue moist HEENT: PERRL. Extraocular movements intact. Clear conjunctiva CARDIOVASCULAR: Regular rate and rhythm. No murmurs, rubs, or gallops LUNGS: + rhonchi left lung base that improves after multiple inhalations, oth erwise CTA ABDOMEN: Soft, nontender, nondistended. Positive bowel sounds. Normal active bowel sounds NEUROLOGICAL: Alert and oriented times three. Cranial nerves II through XII grossly intact. Sensation grossly intact, mild inattention to left side EXTREMITIES: 5\5 strength RUE, 4+ LUE 5\5 strength right lower extremity. 5/5 strength in left lower extremity. right knee with + medial joint line tenderness, scant swelling SKIN: no sacral ulcers LABORATORY DATA: Please see below. ASSESSMENT:85-year-old M with past medical history of HTN who presents status post stroke PLAN: 1. REhab- PT/OT advance mobility and ADLs, strengthen/stretch/ maintain ROM all 4limbs, ambulating with RW 2. 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 cardiac- HTN c/u BP meds, Valsartan d/c'd per hospitalist -recent EHCO + grade 2 diastolic dysfunction, fluid restrict, daily weights, consider restarting HCTZ -HLD c/u statin 4. Resp- patient recently treated for PNA, on admission he had cough and wheeze with CXR suggestive of PNA, given a few doses of Unasyn, reporting his cough has improved since admission, c/u combivent, guaifenesin, monitor for new infection -aspiration precautions, oral care, free water protocol in place 5. GI ppx- protonix 6. DVT ppx- heparin and teds 7. Pain- tylenol - right knee mild inflammation likely due to overuse with left sided weakness exacerbating underlying OA, will order lidoderm patch 8. ENdo- hx of DM c/u ISS will consider restarting metformin 9. DGU- hx of BPH, icnreased flomax and menezes d/c'd he is voiding well 10. Dispo- TBD Allergies Coded Allergies: NSAIDS (Non-Steroidal Anti-Inflamma (Verified Adverse Reaction, Intermediate, renal impairment, 08/20/20) Vital Signs Vital Signs Date Time Temp Pulse Resp B/P (MAP) Pulse Ox O2 Delivery O2 Flow Rate FiO2 08/25/20 14:00 98.0 68 18 133/62 (85) 96 Room Air Laboratory Data CBC/BMP Laboratory Tests 08/25/20 06:25 Labs 24H Laboratory Tests 2 08/24/20 17:17: Bedside Glucose (Misc Panel) 134H 08/24/20 20:34: Bedside Glucose (Misc Panel) 110 08/25/20 06:21: Bedside Glucose (Misc Panel) 120H 08/25/20 06:25: Immature Granulocyte % (Auto) 1.3, Neutrophils (%) (Auto) 66.0, Lymphocytes (%) (Auto) 12.1L, Monocytes (%) (Auto) 8.3H, Eosinophils (%) (Auto) 11.3H, Basophils (%) (Auto) 1.0, Neutrophils # (Auto) 7.0, Lymphocytes # (Auto) 1.3L, Monocytes # (Auto) 0.9H, Eosinophils # (Auto) 1.2H, Basophils # (Auto) 0.1, Nucleated Red Blood Cells % (auto) 0.0, Anion Gap 7L, Glomerular Filtration Rate 43.2, Calcium Level 9.1 08/25/20 11:30: Bedside Glucose (Misc Panel) 93 Current Medications Current Medications Current Medications Medications (Trade) Dose Ordered Sig/January Route PRN Reason Start Time Stop Time Status Last Admin Dose Admin Acetaminophen (Tylenol Tab) 650 mg Q4HP PRN PO fever/MILD PAIN (PS 1-4) 08/20/20 15:45 Albuterol/ Ipratropium (Combivent Respimat 100-20mcg) 1 puff RTID INH 08/21/20 08:00 08/25/20 13:09 Amlodipine Besylate (Norvasc) 10 mg DAILY PO 08/21/20 09:00 08/25/20 07:52 Ampicillin Sodium/ Sulbactam Sodium 3 gm/Dextrose 50 ml @ 100 mls/hr Q6H IV 08/21/20 17:15 08/21/20 17:49 DC Ampicillin Sodium/ Sulbactam Sodium 3 gm/Dextrose 100 ml @ 200 mls/hr Q6H IV 08/21/20 19:00 08/22/20 16:44 DC 08/22/20 12:42 Aspirin (Ecotrin) 81 mg DAILY PO 08/21/20 09:00 08/25/20 07:53 Atorvastatin Calcium (Lipitor) 80 mg DAILY PO 08/21/20 09:00 08/25/20 07:53 Bisacodyl (Dulcolax Suppository) 10 mg DAILYPRN PRN [place] CONSTIPATION 08/20/20 15:45 Carvedilol (COReg) 6.25 mg BID PO 08/24/20 21:00 08/25/20 07:52 Clopidogrel Bisulfate (PLAVix) 75 mg DAILY PO 08/21/20 09:00 08/25/20 07:52 Dextrose (Dextrose 50%) 25 ml ASDIRECTED PRN IV SEE LABEL COMMENTS 08/20/20 15:45 Docusate Sodium (Colace) 100 mg BID PO 08/20/20 21:00 08/24/20 20:39 Fluticasone Propionate (Flonase 0.05% Nasal [place]) 1 spray BID NARES 08/21/20 09:00 08/25/20 07:55 Glucagon (Glucagon) 1 mg ASDIRECTED PRN SC SEE LABEL COMMENTS 08/20/20 15:45 Glucose (Glucose) 16 GM ASDIRECTED PRN PO SEE LABEL COMMENTS 08/20/20 15:45 Guaifenesin (Robitussin Tab) 400 mg TID PO 08/21/20 09:00 08/25/20 07:51 Heparin Sodium (Porcine) (Heparin) 5,000 units Q12H SC 08/21/20 09:00 08/25/20 07:58 Home Med (Med Rec Complete!) ASDIRECTED XX 08/20/20 16:30 08/20/20 16:44 DC Hydralazine HCl (Apresoline) 25 mg Q6H PO 08/21/20 06:00 08/25/20 00:35 Hydrochlorothiazide (Hydrodiuril) 12.5 mg DAILY PO 08/21/20 09:00 08/24/20 16:04 DC 08/24/20 09:45 Insulin Human Lispro (HumaLOG INSULIN) SEE PROTOCOL TABLE AC SC 08/20/20 17:30 08/25/20 07:51 Insulin Human Lispro (HumaLOG INSULIN) SEE PROTOCOL TABLE QHS SC 08/20/20 21:00 Lidocaine/ Diphenhydr/Alum/ Mg/Simeth (Magic Mouthwash) 5ML AC SSP 08/21/20 07:30 08/23/20 06:40 DC 08/22/20 16:55 Lidocaine/ Diphenhydr/Alum/ Mg/Simeth (Magic Mouthwash) 5ML please comb... ACHS SSP 08/23/20 07:30 08/25/20 11:39 Pantoprazole Sodium (Protonix) 40 mg DAILY PO 08/21/20 09:00 08/25/20 07:58 Polyethylene Glycol (Miralax) 1 pkt DAILY PRN PO CONSTIPATION 08/20/20 15:45 Psyllium Hydrophilic Mucilloid (Metamucil) 1 pkt DAILY PO 08/21/20 09:00 08/24/20 09:43 Saliva Substitute (Mouthkote) 2 sprays QID MT 08/21/20 09:00 08/25/20 11:40 Sodium Chloride (Nye Nasal [place]) 2 spray TID NA 08/21/20 09:00 08/25/20 07:56 Tamsulosin HCl (Flomax) 0.4 mg DAILY PO 08/21/20 09:00 08/21/20 08:42 DC 08/21/20 07:51 Tamsulosin HCl (Flomax) 0.8 mg DAILY PO 08/22/20 09:00 08/25/20 07:53 Valsartan (Diovan) 80 mg DAILY PO 08/21/20 09:00 08/21/20 08:07 DC 08/21/20 07:49 Valsartan (Diovan) 120 mg DAILY PO 08/22/20 09:00 08/24/20 16:04 DC 08/24/20 10:01 RENZO KAPOOR MD Aug 25, 2020 15:47
[2020-08-25 20:00] VITALS: BP 140/60
[2020-08-25] MEDS: LIDOCAINE 5% (LIDODERM) PATCH TD SCH (20:22)
[2020-08-26] MEDS: **hydrALAZINE HCL** 25 MG TAB PO SCH ×4 (05:46→23:23)
[2020-08-26 06:21] VITALS: BP 138/60
[2020-08-26] MEDS: COMBIVENT RESPIMAT 100-20MCG INHALER 4GM INH SCH ×3 (07:20→19:38)
[2020-08-26] MEDS: SALIVA SUBSTITUTE(MOUTHKOTE) BTL MT SCH ×4 (07:39→20:21)
[2020-08-26] MEDS: FLUTICASONE PROP 0.05% NASAL SPRAY 16 GM (FLONASE) NARES SCH ×2 (07:39→20:22)
[2020-08-26] MEDS: MAGIC MOUTHWASH SUSPENSION BTL SSP SCH ×4 (07:39→20:21)
[2020-08-26] MEDS: SODIUM CHLORIDE NASAL 0.65% SPRAY BTL (OCEAN) SCH ×3 (07:39→20:23)
[2020-08-26] MEDS: **NOTE PATIENT COMMENT** MISC XX SCH (07:40)
[2020-08-26] MEDS: REMEDY PHYTOPLEX Z-GUARD PASTE 113GM TUBE (FROM STOREROOM PRODUCT) TOP SCH ×3 (07:40→20:20)
[2020-08-26] MEDS: HumaLOG INSULIN (NovoLOG) PER UNIT SC SCH ×4 (07:41→20:38)
[2020-08-26] MEDS: HEPARIN SOD (PORCINE) 5000UNITS/ML 1ML VIAL/SYRINGE SC SCH ×2 (07:42→20:22)
[2020-08-26] MEDS: guaiFENesin 200 MG TAB PO SCH ×3 (07:42→20:22)
[2020-08-26] MEDS: TAMSULOSIN 0.4 MG CAP PO SCH (07:43)
[2020-08-26] MEDS: CLOPIDOGREL 75 MG TAB PO SCH (07:43)
[2020-08-26] MEDS: DOCUSATE SODIUM 100MG CAPSULE PO SCH ×2 (07:43→20:21)
[2020-08-26] MEDS: ATORVASTATIN 20 MG TAB PO SCH (07:43)
[2020-08-26] MEDS: ASPIRIN 81MG ENTERIC TABLET PO SCH (07:43)
[2020-08-26] MEDS: PANTOPRAZOLE 40MG TAB (PROTONIX) PO SCH (07:43)
[2020-08-26] MEDS: CARVedilol 6.25 MG TAB PO SCH ×2 (07:44→20:21)
[2020-08-26] MEDS: METAMUCIL (PSYLLIUM) PACKET PO SCH (07:44)
[2020-08-26 08:25] LABS: BASO # 0.1 10^3/uL (0.0-0.2); BASO % 1.1 % (0.0-1.0); EOS # 1.2 10^3/uL (0.0-0.5); EOS % 12.2 % (0.0-3.0); HEMATOCRIT 40.1 % (42.0-52.0); HEMOGLOBIN 13.1 g/dl (13.5-17.5); LYMPH # 1.2 10^3/uL (1.5-5.0); LYMPH % 12.4 % (24.0-44.0); MEAN CORPUSCULAR HEMOGLOBIN 30.3 pg (27.0-33.0); MEAN CORPUSCULAR HGB CONC 32.7 g/dl (32.0-36.5); MEAN CORPUSCULAR VOLUME 92.8 fl (80.0-96.0); MONO # 0.4 10^3/uL (0.0-0.8); MONO % 4.4 % (2.0-8.0); NEUTROPHILS # 6.4 10^3/uL (1.5-8.5); NEUTROPHILS % 68.4 % (36.0-66.0); PLATELET COUNT, AUTOMATED 308 10^3/uL (150-450); RED BLOOD COUNT 4.32 10^6/uL (4.30-6.10); WHITE BLOOD COUNT 9.4 10^3/uL (4.0-10.0)
[2020-08-26 14:00] VITALS: BP 135/60
[2020-08-26] MEDS: hydroCHLOROthiazide 12.5 MG CAPSULE PO SCH (14:18)
[2020-08-26] MEDS: BUDESONIDE 180MCG INHALER (PULMICORT FLEXHALER) INH SCH (19:38)
[2020-08-26 20:00] VITALS: BP 144/70
[2020-08-26] MEDS: LIDOCAINE 5% (LIDODERM) PATCH TD SCH (20:22)
[2020-08-27] MEDS: **hydrALAZINE HCL** 25 MG TAB PO SCH ×4 (05:33→23:50)
[2020-08-27 06:07] VITALS: BP 140/60
[2020-08-27] MEDS: BUDESONIDE 180MCG INHALER (PULMICORT FLEXHALER) INH SCH ×2 (07:31→20:26)
[2020-08-27] MEDS: COMBIVENT RESPIMAT 100-20MCG INHALER 4GM INH SCH ×3 (07:32→20:26)
[2020-08-27] MEDS: MAGIC MOUTHWASH SUSPENSION BTL SSP SCH ×4 (07:35→20:29)
[2020-08-27] MEDS: HumaLOG INSULIN (NovoLOG) PER UNIT SC SCH ×4 (07:35→20:31)
[2020-08-27] MEDS: DOCUSATE SODIUM 100MG CAPSULE PO SCH ×2 (07:36→20:28)
[2020-08-27] MEDS: SALIVA SUBSTITUTE(MOUTHKOTE) BTL MT SCH ×4 (07:36→20:30)
[2020-08-27] MEDS: SODIUM CHLORIDE NASAL 0.65% SPRAY BTL (OCEAN) SCH ×3 (07:37→20:30)
[2020-08-27] MEDS: HEPARIN SOD (PORCINE) 5000UNITS/ML 1ML VIAL/SYRINGE SC SCH ×2 (07:37→20:30)
[2020-08-27] MEDS: METAMUCIL (PSYLLIUM) PACKET PO SCH (07:37)
[2020-08-27] MEDS: REMEDY PHYTOPLEX Z-GUARD PASTE 113GM TUBE (FROM STOREROOM PRODUCT) TOP SCH ×3 (07:38→20:30)
[2020-08-27] MEDS: **NOTE PATIENT COMMENT** MISC XX SCH (07:38)
[2020-08-27] MEDS: FLUTICASONE PROP 0.05% NASAL SPRAY 16 GM (FLONASE) NARES SCH ×2 (07:38→20:30)
[2020-08-27] MEDS: ATORVASTATIN 20 MG TAB PO SCH (07:38)
[2020-08-27] MEDS: PANTOPRAZOLE 40MG TAB (PROTONIX) PO SCH (07:39)
[2020-08-27] MEDS: CLOPIDOGREL 75 MG TAB PO SCH (07:39)
[2020-08-27] MEDS: guaiFENesin 200 MG TAB PO SCH ×3 (07:39→20:28)
[2020-08-27] MEDS: TAMSULOSIN 0.4 MG CAP PO SCH (07:40)
[2020-08-27] MEDS: ASPIRIN 81MG ENTERIC TABLET PO SCH (07:40)
[2020-08-27] MEDS: CARVedilol 6.25 MG TAB PO SCH ×2 (07:40→20:29)
[2020-08-27] MEDS: hydroCHLOROthiazide 12.5 MG CAPSULE PO SCH (07:40)
[2020-08-27 07:48] LABS: BASO # 0.1 10^3/uL (0.0-0.2); EOS # 1.1 10^3/uL (0.0-0.5); EOS % 9.5 % (0.0-3.0); HEMATOCRIT 40.7 % (42.0-52.0); HEMOGLOBIN 13.3 g/dl (13.5-17.5); LYMPH # 1.2 10^3/uL (1.5-5.0); MEAN CORPUSCULAR HEMOGLOBIN 30.3 pg (27.0-33.0); MEAN CORPUSCULAR HGB CONC 32.7 g/dl (32.0-36.5); MEAN CORPUSCULAR VOLUME 92.7 fl (80.0-96.0); MONO # 0.6 10^3/uL (0.0-0.8); MONO % 5.6 % (2.0-8.0); NEUTROPHILS % 71.6 % (36.0-66.0); PLATELET COUNT, AUTOMATED 322 10^3/uL (150-450); RED BLOOD COUNT 4.39 10^6/uL (4.30-6.10); WHITE BLOOD COUNT 11.1 10^3/uL (4.0-10.0)
[2020-08-27 08:09] LABS: CALCIUM LEVEL 9.2 MG/DL (8.8-10.2); CREATININE FOR GFR 1.58 MG/DL (0.70-1.30); GLOMERULAR FILTRATION RATE 44.5 (>35); POTASSIUM SERUM 4.1 MEQ/L (3.5-5.1)
[2020-08-27] MEDS ORDERED: LIDOCAINE 5% (LIDODERM) PATCH TD ONE (10:45)
[2020-08-27] MEDS: LevoFLOXacin 750 MG TABLET PO SCH (10:55)
[2020-08-27 13:43] VITALS: BP 131/62
[2020-08-27 20:00] VITALS: BP 132/61
[2020-08-28] MEDS: **hydrALAZINE HCL** 25 MG TAB PO SCH ×4 (05:43→23:56)
[2020-08-28 06:00] VITALS: BP 158/71
[2020-08-28] MEDS: guaiFENesin 200 MG TAB PO SCH ×3 (07:53→21:01)
[2020-08-28] MEDS: PANTOPRAZOLE 40MG TAB (PROTONIX) PO SCH (07:53)
[2020-08-28] MEDS: ATORVASTATIN 20 MG TAB PO SCH (07:53)
[2020-08-28] MEDS: CLOPIDOGREL 75 MG TAB PO SCH (07:53)
[2020-08-28] MEDS: METAMUCIL (PSYLLIUM) PACKET PO SCH (07:53)
[2020-08-28] MEDS: TAMSULOSIN 0.4 MG CAP PO SCH (07:53)
[2020-08-28] MEDS: MAGIC MOUTHWASH SUSPENSION BTL SSP SCH ×4 (07:54→21:02)
[2020-08-28] MEDS: HumaLOG INSULIN (NovoLOG) PER UNIT SC SCH ×4 (07:54→21:00)
[2020-08-28] MEDS: DOCUSATE SODIUM 100MG CAPSULE PO SCH ×2 (07:54→21:01)
[2020-08-28] MEDS: ASPIRIN 81MG ENTERIC TABLET PO SCH (07:54)
[2020-08-28] MEDS: FLUTICASONE PROP 0.05% NASAL SPRAY 16 GM (FLONASE) NARES SCH ×2 (07:55→21:02)
[2020-08-28] MEDS: REMEDY PHYTOPLEX Z-GUARD PASTE 113GM TUBE (FROM STOREROOM PRODUCT) TOP SCH ×3 (07:55→21:03)
[2020-08-28] MEDS: SODIUM CHLORIDE NASAL 0.65% SPRAY BTL (OCEAN) SCH ×3 (07:55→21:02)
[2020-08-28] MEDS: SALIVA SUBSTITUTE(MOUTHKOTE) BTL MT SCH ×4 (07:55→21:02)
[2020-08-28] MEDS: HEPARIN SOD (PORCINE) 5000UNITS/ML 1ML VIAL/SYRINGE SC SCH ×2 (07:56→21:01)
[2020-08-28] MEDS: hydroCHLOROthiazide 12.5 MG CAPSULE PO SCH (07:57)
[2020-08-28] MEDS: CARVedilol 6.25 MG TAB PO SCH ×2 (07:58→21:02)
[2020-08-28] MEDS: LIDOCAINE 5% (LIDODERM) PATCH TD SCH (07:59)
[2020-08-28] MEDS: BUDESONIDE 180MCG INHALER (PULMICORT FLEXHALER) INH SCH ×2 (08:00→20:14)
[2020-08-28] MEDS: COMBIVENT RESPIMAT 100-20MCG INHALER 4GM INH SCH ×3 (08:00→20:12)
--- NOTE | 2020-08-28 10:38 | IPNPDOC ---
PM&R Progress Note DATE OF SERVICE: Aug 26, 2020 Manager Presentation Progress Note Subjective: Patient seen in therapy stating his cough is better overall, denies fevers or chills. REVIEW OF SYSTEMS: The following is a completed review of systems and has been reviewed. Review of systems otherwise unremarkable. PAIN: Patient self reports no pain. EYES: No recent vision changes EARS, NOSE, & THROAT: +dysphagia CARDIOVASCULAR: Denies chest pain or palpitations PULMONARY: Denies shortness of breath, + cough and wheeze (improving) GASTROINTESTINAL: Denies constipation/diarrhea GENITOURINARY: denies dysuria/retention MUSCULOSKELETAL: left sided weakness NEUROLOGICAL:left sided paresis HEMATOLOGICAL: denies easy bruising SKIN:no rash PSYCHIATRIC: Unremarkable All other review of systems found to be negative. PHYSICAL EXAMINATION: VITAL SIGNS: Please see below. GENERAL: Pleasant and cooperative. No acute distress. + left facial droop, tongue moist HEENT: PERRL. Extraocular movements intact. Clear conjunctiva CARDIOVASCULAR: Regular rate and rhythm. No murmurs, rubs, or gallops LUNGS: + rhonchi and wheeze left upper and lower lung base ABDOMEN: Soft, nontender, nondistended. Positive bowel sounds. Normal active bowel sounds NEUROLOGICAL: Alert and oriented times three. Cranial nerves II through XII grossly intact. Sensation grossly intact, mild inattention to left side EXTREMITIES: 5\5 strength RUE, 4+ LUE 5\5 strength right lower extremity. 5/5 strength in left lower extremity. right knee with + medial joint line tenderness, scant swelling SKIN: no sacral ulcers LABORATORY DATA: Please see below. ASSESSMENT:85-year-old M with past medical history of HTN who presents status post stroke PLAN: 1. REhab- PT/OT advance mobility and ADLs, strengthen/stretch/ maintain ROM all 4limbs, ambulating further with RW 2. 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 cardiac- HTN c/u BP meds, Valsartan d/c'd per hospitalist -recent EHCO + grade 2 diastolic dysfunction, fluid restrict, daily weights, will restart HCTZ as patient reported to get winded with bending forward in therapy -HLD c/u statin 4. Resp- patient recently treated for PNA, on admission he had cough and wheeze with CXR suggestive of PNA, given a few doses of Unasyn, reporting his cough has improved since admission, c/u Combivent, guaifenesin, will add symbicort for persistent left lung field rhonchi/wheeze, and consider restarting antibtioics tomorrow if exam does not improve -aspiration precautions, oral care, free water protocol in place 5. GI ppx- protonix 6. DVT ppx- heparin and teds 7. Pain- tylenol - right knee mild inflammation likely due to overuse with left sided weakness exacerbating underlying OA, c/u lidoderm patch 8. ENdo- hx of DM c/u ISS will consider restarting metformin 9. DGU- hx of BPH, increased flomax and menezes d/c'd he is voiding well 10. Dispo- TBD Allergies Coded Allergies: NSAIDS (Non-Steroidal Anti-Inflamma (Verified Adverse Reaction, Intermediate, renal impairment, 08/20/20) Vital Signs Vital Signs Date Time Temp Pulse Resp B/P (MAP) Pulse Ox O2 Delivery O2 Flow Rate FiO2 08/28/20 07:57 63 138/63 08/28/20 06:00 98.1 19 97 Room Air Laboratory Data Labs 24H Laboratory Tests 2 08/27/20 11:26: Bedside Glucose (Misc Panel) 77L 08/27/20 16:33: Bedside Glucose (Misc Panel) 124H 08/27/20 19:32: Bedside Glucose (Misc Panel) 168H 08/28/20 06:11: Bedside Glucose (Misc Panel) 114H Microbiology Microbiology 08/27/20 Gram Stain - Final, Resulted 08/27/20 Sputum Culture, Resulted Pending Current Medications Current Medications Current Medications Medications (Trade) Dose Ordered Sig/January Route PRN Reason Start Time Stop Time Status Last Admin Dose Admin Acetaminophen (Tylenol Tab) 650 mg Q4HP PRN PO fever/MILD PAIN (PS 1-4) 08/20/20 15:45 08/28/20 07:59 Albuterol/ Ipratropium (Combivent Respimat 100-20mcg) 1 puff RTID INH 08/21/20 08:00 08/27/20 20:26 Amlodipine Besylate (Norvasc) 10 mg DAILY PO 08/21/20 09:00 08/28/20 07:57 Ampicillin Sodium/ Sulbactam Sodium 3 gm/Dextrose 50 ml @ 100 mls/hr Q6H IV 08/21/20 17:15 08/21/20 17:49 DC Ampicillin Sodium/ Sulbactam Sodium 3 gm/Dextrose 100 ml @ 200 mls/hr Q6H IV 08/21/20 19:00 08/22/20 16:44 DC 08/22/20 12:42 Aspirin (Ecotrin) 81 mg DAILY PO 08/21/20 09:00 08/28/20 07:54 Atorvastatin Calcium (Lipitor) 80 mg DAILY PO 08/21/20 09:00 08/28/20 07:53 Bisacodyl (Dulcolax Suppository) 10 mg DAILYPRN PRN [place] CONSTIPATION 08/20/20 15:45 Budesonide (Pulmicort Flexhaler) 2 puff RBID INH 08/26/20 20:00 08/27/20 20:26 Carvedilol (COReg) 6.25 mg BID PO 08/24/20 21:00 08/28/20 07:58 Clopidogrel Bisulfate (PLAVix) 75 mg DAILY PO 08/21/20 09:00 08/28/20 07:53 Dextrose (Dextrose 50%) 25 ml ASDIRECTED PRN IV SEE LABEL COMMENTS 08/20/20 15:45 Docusate Sodium (Colace) 100 mg BID PO 08/20/20 21:00 08/28/20 07:54 Fluticasone Propionate (Flonase 0.05% Nasal [place]) 1 spray BID NARES 08/21/20 09:00 08/28/20 07:55 Glucagon (Glucagon) 1 mg ASDIRECTED PRN SC SEE LABEL COMMENTS 08/20/20 15:45 Glucose (Glucose) 16 GM ASDIRECTED PRN PO SEE LABEL COMMENTS 08/20/20 15:45 Guaifenesin (Robitussin Tab) 400 mg TID PO 08/21/20 09:00 08/28/20 07:53 Heparin Sodium (Porcine) (Heparin) 5,000 units Q12H SC 08/21/20 09:00 08/28/20 07:56 Home Med (Med Rec Complete!) ASDIRECTED XX 08/20/20 16:30 08/20/20 16:44 DC Hydralazine HCl (Apresoline) 25 mg Q6H PO 08/21/20 06:00 08/28/20 05:43 Hydrochlorothiazide (Hydrodiuril) 12.5 mg DAILY PO 08/21/20 09:00 08/24/20 16:04 DC 08/24/20 09:45 Hydrochlorothiazide (Hydrodiuril) 12.5 mg DAILY PO 08/26/20 09:00 08/28/20 07:57 Insulin Human Lispro (HumaLOG INSULIN) SEE PROTOCOL TABLE AC SC 08/20/20 17:30 08/28/20 07:54 Insulin Human Lispro (HumaLOG INSULIN) SEE PROTOCOL TABLE QHS SC 08/20/20 21:00 Levofloxacin (Levaquin) 750 mg Q48H PO 08/27/20 06:00 09/02/20 06:01 08/27/20 10:55 Lidocaine (Lidoderm Patch) 1 patch QAM TD 08/28/20 09:00 08/28/20 07:59 Lidocaine (Lidoderm Patch) 1 patch QHS TD 08/25/20 21:00 08/27/20 10:35 DC 08/26/20 20:22 Lidocaine/ Diphenhydr/Alum/ Mg/Simeth (Magic Mouthwash) 5ML AC SSP 08/21/20 07:30 08/23/20 06:40 DC 08/22/20 16:55 Lidocaine/ Diphenhydr/Alum/ Mg/Simeth (Magic Mouthwash) 5ML please comb... ACHS SSP 08/23/20 07:30 08/28/20 07:54 Non-Formulary Medication ( See Comment Field Below ) REMOVE LIDODERM PATCH DAILY XX 08/26/20 09:00 08/27/20 10:36 DC 08/27/20 07:38 Non-Formulary Medication ( See Comment Field Below ) REMOVE LIDODERM PATCH QHS XX 08/28/20 21:00 Pantoprazole Sodium (Protonix) 40 mg DAILY PO 08/21/20 09:00 08/28/20 07:53 Polyethylene Glycol (Miralax) 1 pkt DAILY PRN PO CONSTIPATION 08/20/20 15:45 Psyllium Hydrophilic Mucilloid (Metamucil) 1 pkt DAILY PO 08/21/20 09:00 08/28/20 07:53 Saliva Substitute (Mouthkote) 2 sprays QID MT 08/21/20 09:00 08/28/20 07:55 Sodium Chloride ([place] Nasal [place]) 2 spray TID NA 08/21/20 09:00 08/28/20 07:55 Tamsulosin HCl (Flomax) 0.4 mg DAILY PO 08/21/20 09:00 08/21/20 08:42 DC 08/21/20 07:51 Tamsulosin HCl (Flomax) 0.8 mg DAILY PO 08/22/20 09:00 08/28/20 07:53 Valsartan (Diovan) 80 mg DAILY PO 08/21/20 09:00 08/21/20 08:07 DC 08/21/20 07:49 Valsartan (Diovan) 120 mg DAILY PO 08/22/20 09:00 08/24/20 16:04 DC 08/24/20 10:01 RENZO KAPOOR MD Aug 28, 2020 10:38
--- NOTE | 2020-08-28 10:41 | IPNPDOC ---
PM&R Progress Note DATE OF SERVICE: Aug 28, 2020 [employer] Tender Progress Note Subjective: Patient stating he feels good, has no new weakness, and is agreeable to stay through till Tuesday to monitor his cough which he says is getting better, but still present. REVIEW OF SYSTEMS: The following is a completed review of systems and has been reviewed. Review of systems otherwise unremarkable. PAIN: Patient self reports no pain. EYES: No recent vision changes EARS, NOSE, & THROAT: +dysphagia CARDIOVASCULAR: Denies chest pain or palpitations PULMONARY: Denies shortness of breath, + cough and wheeze (improving) GASTROINTESTINAL: Denies constipation/diarrhea GENITOURINARY: denies dysuria/retention MUSCULOSKELETAL: left sided weakness NEUROLOGICAL:left sided paresis HEMATOLOGICAL: denies easy bruising SKIN:no rash PSYCHIATRIC: Unremarkable All other review of systems found to be negative. PHYSICAL EXAMINATION: VITAL SIGNS: Please see below. GENERAL: Pleasant and cooperative. No acute distress. + left facial droop, tongue moist HEENT: PERRL. Extraocular movements intact. Clear conjunctiva CARDIOVASCULAR: Regular rate and rhythm. No murmurs, rubs, or gallops LUNGS: +scattered rhonchi ABDOMEN: Soft, nontender, nondistended. Positive bowel sounds. Normal active bowel sounds NEUROLOGICAL: Alert and oriented times three. Cranial nerves II through XII grossly intact. Sensation grossly intact, mild inattention to left side EXTREMITIES: 5\5 strength RUE, 4+ LUE 5\5 strength right lower extremity. 5/5 strength in left lower extremity. SKIN: no sacral ulcers LABORATORY DATA: Please see below. ASSESSMENT:85-year-old M with past medical history of HTN who presents status post stroke PLAN: 1. REhab- PT/OT advance mobility and ADLs, strengthen/stretch/ maintain ROM all 4limbs, ambulating further with RW 2. 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 cardiac- HTN c/u BP meds, Valsartan d/c'd per hospitalist -recent EHCO + grade 2 diastolic dysfunction, fluid restrict, daily weights, will restart HCTZ as patient reported to get winded with bending forward in therapy -HLD c/u statin 4. Resp- patient recently treated for PNA, on admission he had cough and wheeze with CXR suggestive of PNA, given a few doses of Unasyn, reporting his cough has improved since admission but still present, c/u Combivent, guaifenesin, c/u symbicort for persistent left lung field rhonchi/wheeze, sputum ordered, f/u cx and c/u levaquin, patient afebrile and no significant wbc count, but concerned he has not fully recovered from previous PNA, may be element of COPD -aspiration precautions, oral care, free water protocol in place 5. GI ppx- protonix 6. DVT ppx- heparin and teds 7. Pain- tylenol - right knee mild inflammation likely due to overuse with left sided weakness exacerbating underlying OA, c/u lidoderm patch 8. ENdo- hx of DM c/u ISS will consider restarting metformin 9. - hx of BPH, increased flomax and menezes d/c'd he is voiding well 10. Dispo- 09-01-20 to home, patient progressing towards goals Allergies Coded Allergies: NSAIDS (Non-Steroidal Anti-Inflamma (Verified Adverse Reaction, Intermediate, renal impairment, 08/20/20) Vital Signs Vital Signs Date Time Temp Pulse Resp B/P (MAP) Pulse Ox O2 Delivery O2 Flow Rate FiO2 08/28/20 07:57 63 138/63 08/28/20 06:00 98.1 19 97 Room Air Laboratory Data Labs 24H Laboratory Tests 2 08/27/20 11:26: Bedside Glucose (Misc Panel) 77L 08/27/20 16:33: Bedside Glucose (Misc Panel) 124H 08/27/20 19:32: Bedside Glucose (Misc Panel) 168H 08/28/20 06:11: Bedside Glucose (Misc Panel) 114H Microbiology Microbiology 08/27/20 Gram Stain - Final, Resulted 08/27/20 Sputum Culture, Resulted Pending Current Medications Current Medications Current Medications Medications (Trade) Dose Ordered Sig/January Route PRN Reason Start Time Stop Time Status Last Admin Dose Admin Acetaminophen (Tylenol Tab) 650 mg Q4HP PRN PO fever/MILD PAIN (PS 1-4) 08/20/20 15:45 08/28/20 07:59 Albuterol/ Ipratropium (Combivent Respimat 100-20mcg) 1 puff RTID INH 08/21/20 08:00 08/27/20 20:26 Amlodipine Besylate (Norvasc) 10 mg DAILY PO 08/21/20 09:00 08/28/20 07:57 Ampicillin Sodium/ Sulbactam Sodium 3 gm/Dextrose 50 ml @ 100 mls/hr Q6H IV 08/21/20 17:15 08/21/20 17:49 DC Ampicillin Sodium/ Sulbactam Sodium 3 gm/Dextrose 100 ml @ 200 mls/hr Q6H IV 08/21/20 19:00 08/22/20 16:44 DC 08/22/20 12:42 Aspirin (Ecotrin) 81 mg DAILY PO 08/21/20 09:00 08/28/20 07:54 Atorvastatin Calcium (Lipitor) 80 mg DAILY PO 08/21/20 09:00 08/28/20 07:53 Bisacodyl (Dulcolax Suppository) 10 mg DAILYPRN PRN [place] CONSTIPATION 08/20/20 15:45 Budesonide (Pulmicort Flexhaler) 2 puff RBID INH 08/26/20 20:00 08/27/20 20:26 Carvedilol (COReg) 6.25 mg BID PO 08/24/20 21:00 08/28/20 07:58 Clopidogrel Bisulfate (PLAVix) 75 mg DAILY PO 08/21/20 09:00 08/28/20 07:53 Dextrose (Dextrose 50%) 25 ml ASDIRECTED PRN IV SEE LABEL COMMENTS 08/20/20 15:45 Docusate Sodium (Colace) 100 mg BID PO 08/20/20 21:00 08/28/20 07:54 Fluticasone Propionate (Flonase 0.05% Nasal [place]) 1 spray BID NARES 08/21/20 09:00 08/28/20 07:55 Glucagon (Glucagon) 1 mg ASDIRECTED PRN SC SEE LABEL COMMENTS 08/20/20 15:45 Glucose (Glucose) 16 GM ASDIRECTED PRN PO SEE LABEL COMMENTS 08/20/20 15:45 Guaifenesin (Robitussin Tab) 400 mg TID PO 08/21/20 09:00 08/28/20 07:53 Heparin Sodium (Porcine) (Heparin) 5,000 units Q12H SC 08/21/20 09:00 08/28/20 07:56 Home Med (Med Rec Complete!) ASDIRECTED XX 08/20/20 16:30 08/20/20 16:44 DC Hydralazine HCl (Apresoline) 25 mg Q6H PO 08/21/20 06:00 08/28/20 05:43 Hydrochlorothiazide (Hydrodiuril) 12.5 mg DAILY PO 08/21/20 09:00 08/24/20 16:04 DC 08/24/20 09:45 Hydrochlorothiazide (Hydrodiuril) 12.5 mg DAILY PO 08/26/20 09:00 08/28/20 07:57 Insulin Human Lispro (HumaLOG INSULIN) SEE PROTOCOL TABLE AC SC 08/20/20 17:30 08/28/20 07:54 Insulin Human Lispro (HumaLOG INSULIN) SEE PROTOCOL TABLE QHS SC 08/20/20 21:00 Levofloxacin (Levaquin) 750 mg Q48H PO 08/27/20 06:00 09/02/20 06:01 08/27/20 10:55 Lidocaine (Lidoderm Patch) 1 patch QAM TD 08/28/20 09:00 08/28/20 07:59 Lidocaine (Lidoderm Patch) 1 patch QHS TD 08/25/20 21:00 08/27/20 10:35 DC 08/26/20 20:22 Lidocaine/ Diphenhydr/Alum/ Mg/Simeth (Magic Mouthwash) 5ML AC SSP 08/21/20 07:30 08/23/20 06:40 DC 08/22/20 16:55 Lidocaine/ Diphenhydr/Alum/ Mg/Simeth (Magic Mouthwash) 5ML please comb... ACHS SSP 08/23/20 07:30 08/28/20 07:54 Non-Formulary Medication ( See Comment Field Below ) REMOVE LIDODERM PATCH DAILY XX 08/26/20 09:00 08/27/20 10:36 DC 08/27/20 07:38 Non-Formulary Medication ( See Comment Field Below ) REMOVE LIDODERM PATCH QHS XX 08/28/20 21:00 Pantoprazole Sodium (Protonix) 40 mg DAILY PO 08/21/20 09:00 08/28/20 07:53 Polyethylene Glycol (Miralax) 1 pkt DAILY PRN PO CONSTIPATION 08/20/20 15:45 Psyllium Hydrophilic Mucilloid (Metamucil) 1 pkt DAILY PO 08/21/20 09:00 08/28/20 07:53 Saliva Substitute (Mouthkote) 2 sprays QID MT 08/21/20 09:00 08/28/20 07:55 Sodium Chloride ([place] Nasal [place]) 2 spray TID NA 08/21/20 09:00 08/28/20 07:55 Tamsulosin HCl (Flomax) 0.4 mg DAILY PO 08/21/20 09:00 08/21/20 08:42 DC 08/21/20 07:51 Tamsulosin HCl (Flomax) 0.8 mg DAILY PO 08/22/20 09:00 08/28/20 07:53 Valsartan (Diovan) 80 mg DAILY PO 08/21/20 09:00 08/21/20 08:07 DC 08/21/20 07:49 Valsartan (Diovan) 120 mg DAILY PO 08/22/20 09:00 08/24/20 16:04 DC 08/24/20 10:01 RENZO KAPOOR MD Aug 28, 2020 10:41
--- NOTE | 2020-08-28 10:41 | IPNPDOC ---
PM&R Progress Note DATE OF SERVICE: Aug 27, 2020 [place] Leadperson Progress Note Subjective: Patient seen in his room stating he is still coughing a little, but denies fevers, chills, and is able to bring up some mucous. REVIEW OF SYSTEMS: The following is a completed review of systems and has been reviewed. Review of systems otherwise unremarkable. PAIN: Patient self reports no pain. EYES: No recent vision changes EARS, NOSE, & THROAT: +dysphagia CARDIOVASCULAR: Denies chest pain or palpitations PULMONARY: Denies shortness of breath, + cough and wheeze (improving) GASTROINTESTINAL: Denies constipation/diarrhea GENITOURINARY: denies dysuria/retention MUSCULOSKELETAL: left sided weakness NEUROLOGICAL:left sided paresis HEMATOLOGICAL: denies easy bruising SKIN:no rash PSYCHIATRIC: Unremarkable All other review of systems found to be negative. PHYSICAL EXAMINATION: VITAL SIGNS: Please see below. GENERAL: Pleasant and cooperative. No acute distress. + left facial droop, tongue moist HEENT: PERRL. Extraocular movements intact. Clear conjunctiva CARDIOVASCULAR: Regular rate and rhythm. No murmurs, rubs, or gallops LUNGS: + rhonchi and wheeze left upper and lower lung base ABDOMEN: Soft, nontender, nondistended. Positive bowel sounds. Normal active bowel sounds NEUROLOGICAL: Alert and oriented times three. Cranial nerves II through XII grossly intact. Sensation grossly intact, mild inattention to left side EXTREMITIES: 5\5 strength RUE, 4+ LUE 5\5 strength right lower extremity. 5/5 strength in left lower extremity. right knee with + medial joint line tenderness, scant swelling SKIN: no sacral ulcers LABORATORY DATA: Please see below. ASSESSMENT:85-year-old M with past medical history of HTN who presents status post stroke PLAN: 1. REhab- PT/OT advance mobility and ADLs, strengthen/stretch/ maintain ROM all 4limbs, ambulating further with RW 2. 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 cardiac- HTN c/u BP meds, Valsartan d/c'd per hospitalist -recent EHCO + grade 2 diastolic dysfunction, fluid restrict, daily weights, will restart HCTZ as patient reported to get winded with bending forward in therapy -HLD c/u statin 4. Resp- patient recently treated for PNA, on admission he had cough and wheeze with CXR suggestive of PNA, given a few doses of Unasyn, reporting his cough has improved since admission but still present, c/u Combivent, guaifenesin, c/u symbicort for persistent left lung field rhonchi/wheeze, sputum ordered, f/u cx and will start levaquin, patient afebrile and no significant wbc count, but concerned he has not fully recovered from previous PNA, may be element of COPD -aspiration precautions, oral care, free water protocol in place 5. GI ppx- protonix 6. DVT ppx- heparin and teds 7. Pain- tylenol - right knee mild inflammation likely due to overuse with left sided weakness exacerbating underlying OA, c/u lidoderm patch 8. ENdo- hx of DM c/u ISS will consider restarting metformin 9. DGU- hx of BPH, increased flomax and menezes d/c'd he is voiding well 10. Dispo- TBD Allergies Coded Allergies: NSAIDS (Non-Steroidal Anti-Inflamma (Verified Adverse Reaction, Intermediate, renal impairment, 08/20/20) Vital Signs Vital Signs Date Time Temp Pulse Resp B/P (MAP) Pulse Ox O2 Delivery O2 Flow Rate FiO2 08/28/20 07:57 63 138/63 08/28/20 06:00 98.1 19 97 Room Air Laboratory Data Labs 24H Laboratory Tests 2 08/27/20 11:26: Bedside Glucose (Misc Panel) 77L 08/27/20 16:33: Bedside Glucose (Misc Panel) 124H 08/27/20 19:32: Bedside Glucose (Misc Panel) 168H 08/28/20 06:11: Bedside Glucose (Misc Panel) 114H Microbiology Microbiology 08/27/20 Gram Stain - Final, Resulted 08/27/20 Sputum Culture, Resulted Pending Current Medications Current Medications Current Medications Medications (Trade) Dose Ordered Sig/January Route PRN Reason Start Time Stop Time Status Last Admin Dose Admin Acetaminophen (Tylenol Tab) 650 mg Q4HP PRN PO fever/MILD PAIN (PS 1-4) 08/20/20 15:45 08/28/20 07:59 Albuterol/ Ipratropium (Combivent Respimat 100-20mcg) 1 puff RTID INH 08/21/20 08:00 08/27/20 20:26 Amlodipine Besylate (Norvasc) 10 mg DAILY PO 08/21/20 09:00 08/28/20 07:57 Ampicillin Sodium/ Sulbactam Sodium 3 gm/Dextrose 50 ml @ 100 mls/hr Q6H IV 08/21/20 17:15 08/21/20 17:49 DC Ampicillin Sodium/ Sulbactam Sodium 3 gm/Dextrose 100 ml @ 200 mls/hr Q6H IV 08/21/20 19:00 08/22/20 16:44 DC 08/22/20 12:42 Aspirin (Ecotrin) 81 mg DAILY PO 08/21/20 09:00 08/28/20 07:54 Atorvastatin Calcium (Lipitor) 80 mg DAILY PO 08/21/20 09:00 08/28/20 07:53 Bisacodyl (Dulcolax Suppository) 10 mg DAILYPRN PRN [place] CONSTIPATION 08/20/20 15:45 Budesonide (Pulmicort Flexhaler) 2 puff RBID INH 08/26/20 20:00 08/27/20 20:26 Carvedilol (COReg) 6.25 mg BID PO 08/24/20 21:00 08/28/20 07:58 Clopidogrel Bisulfate (PLAVix) 75 mg DAILY PO 08/21/20 09:00 08/28/20 07:53 Dextrose (Dextrose 50%) 25 ml ASDIRECTED PRN IV SEE LABEL COMMENTS 08/20/20 15:45 Docusate Sodium (Colace) 100 mg BID PO 08/20/20 21:00 08/28/20 07:54 Fluticasone Propionate (Flonase 0.05% Nasal [place]) 1 spray BID NARES 08/21/20 09:00 08/28/20 07:55 Glucagon (Glucagon) 1 mg ASDIRECTED PRN SC SEE LABEL COMMENTS 08/20/20 15:45 Glucose (Glucose) 16 GM ASDIRECTED PRN PO SEE LABEL COMMENTS 08/20/20 15:45 Guaifenesin (Robitussin Tab) 400 mg TID PO 08/21/20 09:00 08/28/20 07:53 Heparin Sodium (Porcine) (Heparin) 5,000 units Q12H SC 08/21/20 09:00 08/28/20 07:56 Home Med (Med Rec Complete!) ASDIRECTED XX 08/20/20 16:30 08/20/20 16:44 DC Hydralazine HCl (Apresoline) 25 mg Q6H PO 08/21/20 06:00 08/28/20 05:43 Hydrochlorothiazide (Hydrodiuril) 12.5 mg DAILY PO 08/21/20 09:00 08/24/20 16:04 DC 08/24/20 09:45 Hydrochlorothiazide (Hydrodiuril) 12.5 mg DAILY PO 08/26/20 09:00 08/28/20 07:57 Insulin Human Lispro (HumaLOG INSULIN) SEE PROTOCOL TABLE AC SC 08/20/20 17:30 08/28/20 07:54 Insulin Human Lispro (HumaLOG INSULIN) SEE PROTOCOL TABLE QHS SC 08/20/20 21:00 Levofloxacin (Levaquin) 750 mg Q48H PO 08/27/20 06:00 09/02/20 06:01 08/27/20 10:55 Lidocaine (Lidoderm Patch) 1 patch QAM TD 08/28/20 09:00 08/28/20 07:59 Lidocaine (Lidoderm Patch) 1 patch QHS TD 08/25/20 21:00 08/27/20 10:35 DC 08/26/20 20:22 Lidocaine/ Diphenhydr/Alum/ Mg/Simeth (Magic Mouthwash) 5ML AC SSP 08/21/20 07:30 08/23/20 06:40 DC 08/22/20 16:55 Lidocaine/ Diphenhydr/Alum/ Mg/Simeth (Magic Mouthwash) 5ML please comb... ACHS SSP 08/23/20 07:30 08/28/20 07:54 Non-Formulary Medication ( See Comment Field Below ) REMOVE LIDODERM PATCH DAILY XX 08/26/20 09:00 08/27/20 10:36 DC 08/27/20 07:38 Non-Formulary Medication ( See Comment Field Below ) REMOVE LIDODERM PATCH QHS XX 08/28/20 21:00 Pantoprazole Sodium (Protonix) 40 mg DAILY PO 08/21/20 09:00 08/28/20 07:53 Polyethylene Glycol (Miralax) 1 pkt DAILY PRN PO CONSTIPATION 08/20/20 15:45 Psyllium Hydrophilic Mucilloid (Metamucil) 1 pkt DAILY PO 08/21/20 09:00 08/28/20 07:53 Saliva Substitute (Mouthkote) 2 sprays QID MT 08/21/20 09:00 08/28/20 07:55 Sodium Chloride ([place] Nasal [place]) 2 spray TID NA 08/21/20 09:00 08/28/20 07:55 Tamsulosin HCl (Flomax) 0.4 mg DAILY PO 08/21/20 09:00 08/21/20 08:42 DC 08/21/20 07:51 Tamsulosin HCl (Flomax) 0.8 mg DAILY PO 08/22/20 09:00 08/28/20 07:53 Valsartan (Diovan) 80 mg DAILY PO 08/21/20 09:00 08/21/20 08:07 DC 08/21/20 07:49 Valsartan (Diovan) 120 mg DAILY PO 08/22/20 09:00 08/24/20 16:04 DC 08/24/20 10:01 RENZO KAPOOR MD Aug 28, 2020 10:41
[2020-08-28 14:00] VITALS: BP 144/66
[2020-08-28 20:00] VITALS: BP 147/65
[2020-08-28] MEDS: **NOTE PATIENT COMMENT** MISC XX SCH (21:04)
[2020-08-29 06:00] VITALS: BP 149/66
[2020-08-29] MEDS: **hydrALAZINE HCL** 25 MG TAB PO SCH ×4 (06:34→23:58)
[2020-08-29] MEDS: LevoFLOXacin 750 MG TABLET PO SCH (06:35)
[2020-08-29 07:15] LABS: BASO # 0.1 10^3/uL (0.0-0.2); BASO % 0.7 % (0.0-1.0); EOS # 0.8 10^3/uL (0.0-0.5); EOS % 5.5 % (0.0-3.0); HEMATOCRIT 37.2 % (42.0-52.0); HEMOGLOBIN 12.3 g/dl (13.5-17.5); LYMPH # 1.1 10^3/uL (1.5-5.0); LYMPH % 8.2 % (24.0-44.0); MEAN CORPUSCULAR HEMOGLOBIN 30.1 pg (27.0-33.0); MEAN CORPUSCULAR HGB CONC 33.1 g/dl (32.0-36.5); MEAN CORPUSCULAR VOLUME 91.2 fl (80.0-96.0); MONO # 0.7 10^3/uL (0.0-0.8); MONO % 5.3 % (2.0-8.0); NEUTROPHILS # 10.7 10^3/uL (1.5-8.5); NEUTROPHILS % 79.4 % (36.0-66.0); PLATELET COUNT, AUTOMATED 272 10^3/uL (150-450); RED BLOOD COUNT 4.08 10^6/uL (4.30-6.10); WHITE BLOOD COUNT 13.5 10^3/uL (4.0-10.0)
[2020-08-29] MEDS: COMBIVENT RESPIMAT 100-20MCG INHALER 4GM INH SCH ×3 (07:27→20:16)
[2020-08-29] MEDS: BUDESONIDE 180MCG INHALER (PULMICORT FLEXHALER) INH SCH ×2 (07:27→20:16)
[2020-08-29 07:34] LABS: CALCIUM LEVEL 8.9 MG/DL (8.8-10.2); CREATININE FOR GFR 1.52 MG/DL (0.70-1.30); GLOMERULAR FILTRATION RATE 46.5 (>35); POTASSIUM SERUM 4.2 MEQ/L (3.5-5.1)
[2020-08-29] MEDS: HumaLOG INSULIN (NovoLOG) PER UNIT SC SCH ×4 (08:25→21:00)
[2020-08-29] MEDS: MAGIC MOUTHWASH SUSPENSION BTL SSP SCH ×4 (08:25→21:10)
[2020-08-29] MEDS: CLOPIDOGREL 75 MG TAB PO SCH (08:26)
[2020-08-29] MEDS: ASPIRIN 81MG ENTERIC TABLET PO SCH (08:26)
[2020-08-29] MEDS: SALIVA SUBSTITUTE(MOUTHKOTE) BTL MT SCH ×4 (08:26→21:10)
[2020-08-29] MEDS: hydroCHLOROthiazide 12.5 MG CAPSULE PO SCH (08:26)
[2020-08-29] MEDS: guaiFENesin 200 MG TAB PO SCH ×3 (08:27→21:11)
[2020-08-29] MEDS: PANTOPRAZOLE 40MG TAB (PROTONIX) PO SCH (08:27)
[2020-08-29] MEDS: HEPARIN SOD (PORCINE) 5000UNITS/ML 1ML VIAL/SYRINGE SC SCH ×2 (08:27→21:11)
[2020-08-29] MEDS: TAMSULOSIN 0.4 MG CAP PO SCH (08:27)
[2020-08-29] MEDS: FLUTICASONE PROP 0.05% NASAL SPRAY 16 GM (FLONASE) NARES SCH ×2 (08:29→21:09)
[2020-08-29] MEDS: SODIUM CHLORIDE NASAL 0.65% SPRAY BTL (OCEAN) SCH ×3 (08:29→21:10)
[2020-08-29] MEDS: LIDOCAINE 5% (LIDODERM) PATCH TD SCH (08:30)
[2020-08-29] MEDS: REMEDY PHYTOPLEX Z-GUARD PASTE 113GM TUBE (FROM STOREROOM PRODUCT) TOP SCH ×3 (08:30→21:12)
[2020-08-29] MEDS: ATORVASTATIN 20 MG TAB PO SCH (08:32)
[2020-08-29] MEDS: DOCUSATE SODIUM 100MG CAPSULE PO SCH (08:32)
[2020-08-29] MEDS: METAMUCIL (PSYLLIUM) PACKET PO SCH (08:34)
[2020-08-29] MEDS: CARVedilol 6.25 MG TAB PO SCH ×2 (08:35→21:16)
--- NOTE | 2020-08-29 13:13 | REP ---
INDICATION: r/o infiltrate COMPARISON: 06/17/2020 the only prior TECHNIQUE: Standard helical technique without intravenous contrast administration. FINDINGS: There is stable appearing subcarinal adenopathy. No mediastinal or hilar adenopathy is present. There are no pleural or pericardial effusions. There is no change in the imaged upper abdomen or imaged osseous structures. Evaluation of the lung powers again shows chronic bronchiectasis with peribronchiolar wall thickening and dense material within large saccular bronchiectatic components particularly in the right lower lobe. This may have improved somewhat compared to the prior exam, however, the prior examination showed marked in significant respiratory motion artifact obscuring the detail. The lung nodule seen in the posterior segment of the right upper lobe is unchanged there is near circumferential peripheral calcification of this nodule. Incidental calcified granulomas are again seen in the left upper lobe. No new abnormal nodules, masses, or opacities have developed. IMPRESSION: 1. Stable right lung nodule as described above. Is calcification pattern suggests benignity, however, three-month follow-up chest CT is recommended. 2. Chronic bronchiectatic changes as described above. Follow-up is recommended. Pulmonary consultation is suggested. 3. Other findings as described above. <Electronically signed by Tr Villalobos > 08/29/20 [id number]
[2020-08-29 14:00] VITALS: BP 153/67
--- NOTE | 2020-08-29 15:52 | CR ---
CONSULTATION DATE: 08/29/2020 I am asked to consult by Dr. Patton for evaluation of possible pneumonia. HISTORY OF PRESENT ILLNESS: Mr. Nicholas is a pleasant 85-year-old gentleman who was transferred from [facility] for rehabilitation after he had a left-sided stroke. The patient was at home fixing cabinets when he developed left-sided weakness involving his face, left arm, and left leg. He had a stroke workup with a CT angiogram showing no intracranial occlusion, 50% narrowing of the left internal carotid artery (ICA). The patient did not receive tPA and was not a candidate for thrombectomy. MRI on August 15 showed an acute infarct along the right posterior limb of the internal capsule. There was no hemorrhage. He was started on high-dose statin, Plavix, and aspirin and transferred to [facility] for rehabilitation. His left upper extremity and lower extremity strength markedly recovered. He still has left-sided weakness and difficulty with swallowing. He had a cholecystectomy in June of 2020 complicated with pneumonia. He was hospitalized at [facility] for about a week. Patient currently states he has a mild cough intermittently. He does sometimes choke on some foods. He denies any shortness of breath. No fever or chills. His cough is mostly nonproductive. He has no previous history of emphysema or chronic obstructive pulmonary disease (COPD). He is not wearing oxygen. He is on the bicycle working at physical therapy without obvious shortness of breath. REVIEW OF SYSTEMS: He denies any pain. No visual changes. He does have some dysphagia. Denies chest pain, palpitations. He has a mild cough but no shortness of breath. He denies constipation or diarrhea. He has mild left-sided weakness, especially of the face and the hand. MEDICAL HISTORY: Significant for: 1. Hypertension. 2. Diabetes. 3. Benign prostatic hypertrophy. 4. Recent stroke with left hemiparesis. 5. Osteoarthritis of the right knee. 6. Bladder cancer status post cystectomy. SURGICAL HISTORY: 1. Left total knee replacement. 2. Cholecystectomy. He quit smoking years ago. He does not drink or use drugs. He lives alone. FAMILY HISTORY: Father at 38 from pneumonia, and mother at 78 from unknown reason. His daughter of cancer and asked him to quite smoking, and he did in 2003. MEDICATIONS: - lidocaine patch to the right knee - Levaquin 750 mg by mouth every 48 hours, started on August 27 - budesonide two puffs inhaled twice a day - hydrochlorothiazide 12.5 mg by mouth daily - Coreg 6.25 by mouth twice a day - Magic Mouth wash before meals and at bedtime - Flomax 0.8 mg by mouth daily - Saliva substitute two sprays four times a day. - amlodipine 10 mg by mouth daily - aspirin 81 mg by mouth daily - Plavix 75 mg by mouth daily - Lipitor 80 mg by mouth daily - Metamucil as needed - pantoprazole 40 mg subcutaneous daily - heparin 5000 units subcutaneous every 12 hours - hydralazine 25 mg by mouth every 6 hours LABORATORY DATA: White count on admission was 8.9, today was 13.6, hemoglobin 12.3, hematocrit 37.2, platelets 272, 79% neutrophils, 8% lymphocytes, 5% monocytes. Sodium 139, potassium 4.2, chloride 107, bicarbonate 26, BUN 28, creatinine 1.52, glucose 124, calcium 8.9. Procalcitonin 0.05. Sputum culture from August 27 had Klebsiella pneumoniae of moderate growth, resistant to ampicillin, sensitive to Unasyn and all other antibiotics. Chest x-ray done on August 21 showed questionable lower lobe infiltrate on the left side. Esophageal x-ray done on August 22 showed evidence of aspiration and penetration. Chest CT showed a stable right lung nodule with calcification, such as benign finding. Followup CT recommended in 3 months. Chronic bronchiectatic changes. No pleural or pericardial effusion. Lung powers with peribronchial wall thickening and bronchiectasis in the right lower lobe. PHYSICAL EXAMINATION: Temperature is 98.1, pulse 63, respirations 18, blood pressure 149/66, oxygen saturation 94% on room air. HEART: Normal S1, S2. No murmurs, rubs, or gallops. LUNGS: Mildly diminished at the bases but clear. No wheezes, rales, or rhonchi. ABDOMEN: Obese, soft, nontender. No hepatosplenomegaly. EXTREMITIES: No clubbing, cyanosis, or edema. No calf tenderness. Oropharynx: Mild coating of the tongue with white plaque. No neck stiffness. No adenopathy. NEUROLOGIC: Left facial paralysis. Mild weakness in his left grasp. IMPRESSION: This is an 85-year-old gentleman who was admitted for stroke with left hemiparesis, left facial palsy, and aspiration. The patient had a slight increase in his white count today and yesterday, but his procalcitonin is normal. Clinically the patient states he has a mild cough. No shortness of breath. He has no fever or chills. No chest pain. He is not short of breath. He has been on appropriate antibiotics for klebsiella in his sputum that was of moderate growth. He is currently day #3 which is appropriate coverage. Plan: I am not convinced that the patient has pneumonia but at this point would continue a total 7-day course with end of therapy for September 03. Discontinue Colace. Patient has had soft stools and has refused his Colace. Continue probiotics three times a day. Continue to watch for aspiration. His white count could be just related to an aspiration pneumonitis and not necessarily a pneumonia, as his CT does not show any acute findings. [facility]
[2020-08-29 20:00] VITALS: BP 130/63
[2020-08-29] MEDS: **NOTE PATIENT COMMENT** MISC XX SCH (21:12)
[2020-08-30] MEDS: **hydrALAZINE HCL** 25 MG TAB PO SCH ×3 (05:52→17:15)
[2020-08-30 06:16] VITALS: BP 140/72
[2020-08-30] MEDS: BUDESONIDE 180MCG INHALER (PULMICORT FLEXHALER) INH SCH ×2 (07:26→20:07)
[2020-08-30] MEDS: COMBIVENT RESPIMAT 100-20MCG INHALER 4GM INH SCH ×3 (07:26→20:08)
[2020-08-30] MEDS: HumaLOG INSULIN (NovoLOG) PER UNIT SC SCH ×3 (08:27→17:15)
[2020-08-30] MEDS: MAGIC MOUTHWASH SUSPENSION BTL SSP SCH ×4 (08:27→20:56)
[2020-08-30] MEDS: SALIVA SUBSTITUTE(MOUTHKOTE) BTL MT SCH ×4 (08:28→20:57)
[2020-08-30] MEDS: HEPARIN SOD (PORCINE) 5000UNITS/ML 1ML VIAL/SYRINGE SC SCH ×2 (08:28→20:58)
[2020-08-30] MEDS: CLOPIDOGREL 75 MG TAB PO SCH (08:28)
[2020-08-30] MEDS: ATORVASTATIN 20 MG TAB PO SCH (08:29)
[2020-08-30] MEDS: SODIUM CHLORIDE NASAL 0.65% SPRAY BTL (OCEAN) SCH ×3 (08:29→20:57)
[2020-08-30] MEDS: hydroCHLOROthiazide 12.5 MG CAPSULE PO SCH (08:29)
[2020-08-30] MEDS: TAMSULOSIN 0.4 MG CAP PO SCH (08:29)
[2020-08-30] MEDS: ASPIRIN 81MG ENTERIC TABLET PO SCH (08:29)
[2020-08-30] MEDS: guaiFENesin 200 MG TAB PO SCH ×3 (08:30→20:59)
[2020-08-30] MEDS: PANTOPRAZOLE 40MG TAB (PROTONIX) PO SCH (08:30)
[2020-08-30] MEDS: METAMUCIL (PSYLLIUM) PACKET PO SCH (08:30)
[2020-08-30] MEDS: CARVedilol 6.25 MG TAB PO SCH ×2 (08:30→20:59)
[2020-08-30] MEDS: LIDOCAINE 5% (LIDODERM) PATCH TD SCH (08:31)
[2020-08-30] MEDS: REMEDY PHYTOPLEX Z-GUARD PASTE 113GM TUBE (FROM STOREROOM PRODUCT) TOP SCH ×3 (08:31→20:58)
[2020-08-30] MEDS: FLUTICASONE PROP 0.05% NASAL SPRAY 16 GM (FLONASE) NARES SCH ×2 (08:31→20:58)
[2020-08-30 14:00] VITALS: BP 140/62
[2020-08-30] MEDS: **NOTE PATIENT COMMENT** MISC XX SCH (20:58)
[2020-08-30 22:05] VITALS: BP 110/60
--- NOTE | 2020-08-30 22:16 | IPNPDOC ---
PM&R Progress Note DATE OF SERVICE: Aug 29, 2020 [employer] Progress Note Subjective: Patient stating he was able to walk outside and feels he is moving much better. He denies fever, and still has mild cough. REVIEW OF SYSTEMS: The following is a completed review of systems and has been reviewed. Review of systems otherwise unremarkable. PAIN: Patient self reports no pain. EYES: No recent vision changes EARS, NOSE, & THROAT: +dysphagia CARDIOVASCULAR: Denies chest pain or palpitations PULMONARY: Denies shortness of breath, + cough and wheeze (improving) GASTROINTESTINAL: Denies constipation/diarrhea GENITOURINARY: denies dysuria/retention MUSCULOSKELETAL: left sided weakness NEUROLOGICAL:left sided paresis HEMATOLOGICAL: denies easy bruising SKIN:no rash PSYCHIATRIC: Unremarkable All other review of systems found to be negative. PHYSICAL EXAMINATION: VITAL SIGNS: Please see below. GENERAL: Pleasant and cooperative. No acute distress. + left facial droop, tongue moist HEENT: PERRL. Extraocular movements intact. Clear conjunctiva CARDIOVASCULAR: Regular rate and rhythm. No murmurs, rubs, or gallops LUNGS: +scattered rhonchi ABDOMEN: Soft, nontender, nondistended. Positive bowel sounds. Normal active bowel sounds NEUROLOGICAL: Alert and oriented times three. Cranial nerves II through XII grossly intact. Sensation grossly intact, mild inattention to left side EXTREMITIES: 5\5 strength RUE, 4+ LUE 5\5 strength right lower extremity. 5/5 strength in left lower extremity. SKIN: no sacral ulcers LABORATORY DATA: Please see below. ASSESSMENT:85-year-old M with past medical history of HTN who presents status post stroke PLAN: 1. REhab- PT/OT advance mobility and ADLs, strengthen/stretch/ maintain ROM all 4limbs, ambulating further with RW 2. Neuro- s/p right posterior limb of the internal capsule infarct with non-dominant left sided hemiparesis and stroke related dysphagia- c/u ASA+Plavix for 21 days then to be followed by ASA monotherapy, statin as well for secondary stroke prevention 3. cardiac- HTN c/u BP meds, Valsartan d/c'd per hospitalist -recent EHCO + grade 2 diastolic dysfunction, fluid restrict, daily weights, will restart HCTZ as patient reported to get winded with bending forward in therapy -HLD c/u statin 4. Resp- patient recently treated for PNA, on admission he had cough and wheeze with CXR suggestive of PNA, given a few doses of Unasyn, reporting his cough has improved since admission but still present, c/u Combivent, guaifenesin, c/u symbicort for persistent left lung field rhonchi/wheeze, sputum ordered, cx + Klebsiella PNA, c/u levaquin for now, patient afebrile, but with increasing leukocytosis- will consult Dr. Platt -aspiration precautions, oral care, will d/c free water protocol in place as suspect patient ma be drinking water in his room outside of these parameters 5. GI ppx- protonix 6. DVT ppx- heparin and teds 7. Pain- tylenol - right knee mild inflammation likely due to overuse with left sided weakness exacerbating underlying OA, c/u lidoderm patch-improving 8. ENdo- hx of DM c/u ISS will consider restarting metformin 9. - hx of BPH, increased flomax and menezes d/c'd he is voiding well 10. Dispo- 09-01-20 to home, patient progressing towards goals Allergies Coded Allergies: NSAIDS (Non-Steroidal Anti-Inflamma (Verified Adverse Reaction, Intermediate, renal impairment, 08/20/20) Vital Signs Vital Signs Date Time Temp Pulse Resp B/P (MAP) Pulse Ox O2 Delivery O2 Flow Rate FiO2 08/30/20 22:05 97.1 60 18 110/60 (77) 96 Room Air Laboratory Data Labs 24H Laboratory Tests 2 08/30/20 05:42: Bedside Glucose (Misc Panel) 103 08/30/20 11:23: Bedside Glucose (Misc Panel) 99 08/30/20 16:34: Bedside Glucose (Misc Panel) 103 08/30/20 20:18: Bedside Glucose (Misc Panel) 92 Microbiology Microbiology 08/27/20 Gram Stain - Final, Complete 08/27/20 Sputum Culture - Final, Complete Klebsiella Pneumoniae Yeast Like Organism Current Medications Current Medications Current Medications Medications (Trade) Dose Ordered Sig/January Route PRN Reason Start Time Stop Time Status Last Admin Dose Admin Acetaminophen (Tylenol Tab) 650 mg Q4HP PRN PO fever/MILD PAIN (PS 1-4) 08/20/20 15:45 08/28/20 07:59 Albuterol/ Ipratropium (Combivent Respimat 100-20mcg) 1 puff RTID INH 08/21/20 08:00 08/30/20 20:08 Amlodipine Besylate (Norvasc) 10 mg DAILY PO 08/21/20 09:00 08/30/20 08:30 Ampicillin Sodium/ Sulbactam Sodium 3 gm/Dextrose 50 ml @ 100 mls/hr Q6H IV 08/21/20 17:15 08/21/20 17:49 DC Ampicillin Sodium/ Sulbactam Sodium 3 gm/Dextrose 100 ml @ 200 mls/hr Q6H IV 08/21/20 19:00 08/22/20 16:44 DC 08/22/20 12:42 Aspirin (Ecotrin) 81 mg DAILY PO 08/21/20 09:00 08/30/20 08:29 Atorvastatin Calcium (Lipitor) 80 mg DAILY PO 08/21/20 09:00 08/30/20 08:29 Bisacodyl (Dulcolax Suppository) 10 mg DAILYPRN PRN IA CONSTIPATION 08/20/20 15:45 Budesonide (Pulmicort Flexhaler) 2 puff RBID INH 08/26/20 20:00 08/30/20 20:07 Carvedilol (COReg) 6.25 mg BID PO 08/24/20 21:00 08/30/20 20:59 Clopidogrel Bisulfate (PLAVix) 75 mg DAILY PO 08/21/20 09:00 08/30/20 08:28 Dextrose (Dextrose 50%) 25 ml ASDIRECTED PRN IV SEE LABEL COMMENTS 08/20/20 15:45 Docusate Sodium (Colace) 100 mg BID PO 08/20/20 21:00 08/29/20 13:03 DC 08/28/20 21:01 Fluticasone Propionate (Flonase 0.05% Nasal [place]) 1 spray BID NARES 08/21/20 09:00 08/30/20 20:58 Glucagon (Glucagon) 1 mg ASDIRECTED PRN SC SEE LABEL COMMENTS 08/20/20 15:45 Glucose (Glucose) 16 GM ASDIRECTED PRN PO SEE LABEL COMMENTS 08/20/20 15:45 Guaifenesin (Robitussin Tab) 400 mg TID PO 08/21/20 09:00 08/30/20 20:59 Heparin Sodium (Porcine) (Heparin) 5,000 units Q12H SC 08/21/20 09:00 08/30/20 20:58 Home Med (Med Rec Complete!) ASDIRECTED XX 08/20/20 16:30 08/20/20 16:44 DC Hydralazine HCl (Apresoline) 25 mg Q6H PO 08/21/20 06:00 08/30/20 17:15 Hydrochlorothiazide (Hydrodiuril) 12.5 mg DAILY PO 08/21/20 09:00 08/24/20 16:04 DC 08/24/20 09:45 Hydrochlorothiazide (Hydrodiuril) 12.5 mg DAILY PO 08/26/20 09:00 08/30/20 08:29 Insulin Human Lispro (HumaLOG INSULIN) SEE PROTOCOL TABLE AC SC 08/20/20 17:30 08/30/20 20:58 DC 08/30/20 17:15 Insulin Human Lispro (HumaLOG INSULIN) SEE PROTOCOL TABLE QHS SC 08/20/20 21:00 08/30/20 20:58 DC Levofloxacin (Levaquin) 750 mg Q48H PO 08/27/20 06:00 09/02/20 06:01 08/29/20 06:35 Lidocaine (Lidoderm Patch) 1 patch QAM TD 08/28/20 09:00 08/30/20 08:31 Lidocaine (Lidoderm Patch) 1 patch QHS TD 08/25/20 21:00 08/27/20 10:35 DC 08/26/20 20:22 Lidocaine/ Diphenhydr/Alum/ Mg/Simeth (Magic Mouthwash) 5ML AC SSP 08/21/20 07:30 08/23/20 06:40 DC 08/22/20 16:55 Lidocaine/ Diphenhydr/Alum/ Mg/Simeth (Magic Mouthwash) 5ML ACHS SSP 08/23/20 07:30 08/30/20 20:56 Non-Formulary Medication ( See Comment Field Below ) REMOVE LIDODERM PATCH DAILY XX 08/26/20 09:00 08/27/20 10:36 DC 08/27/20 07:38 Non-Formulary Medication ( See Comment Field Below ) REMOVE LIDODERM PATCH QHS XX 08/28/20 21:00 08/30/20 20:58 Pantoprazole Sodium (Protonix) 40 mg DAILY PO 08/21/20 09:00 08/30/20 08:30 Polyethylene Glycol (Miralax) 1 pkt DAILY PRN PO CONSTIPATION 08/20/20 15:45 Psyllium Hydrophilic Mucilloid (Metamucil) 1 pkt DAILY PO 08/21/20 09:00 08/29/20 08:34 Saliva Substitute (Mouthkote) 2 sprays QID MT 08/21/20 09:00 08/30/20 20:57 Sodium Chloride ([place]orrow Nasal [place]) 2 spray TID NA 08/21/20 09:00 08/30/20 20:57 Tamsulosin HCl (Flomax) 0.4 mg DAILY PO 08/21/20 09:00 08/21/20 08:42 DC 08/21/20 07:51 Tamsulosin HCl (Flomax) 0.8 mg DAILY PO 08/22/20 09:00 08/30/20 08:29 Valsartan (Diovan) 80 mg DAILY PO 08/21/20 09:00 08/21/20 08:07 DC 08/21/20 07:49 Valsartan (Diovan) 120 mg DAILY PO 08/22/20 09:00 08/24/20 16:04 DC 08/24/20 10:01 RENZO KAPOOR MD Aug 30, 2020 22:16
[2020-08-31] MEDS: **hydrALAZINE HCL** 25 MG TAB PO SCH ×5 (05:13→23:47)
[2020-08-31] MEDS: LevoFLOXacin 750 MG TABLET PO SCH (05:16)
[2020-08-31 06:17] VITALS: BP 130/60
[2020-08-31] MEDS: BUDESONIDE 180MCG INHALER (PULMICORT FLEXHALER) INH SCH ×2 (07:26→19:18)
[2020-08-31] MEDS: COMBIVENT RESPIMAT 100-20MCG INHALER 4GM INH SCH ×3 (07:26→19:18)
[2020-08-31] MEDS: SALIVA SUBSTITUTE(MOUTHKOTE) BTL MT SCH ×4 (08:59→20:34)
[2020-08-31] MEDS: METAMUCIL (PSYLLIUM) PACKET PO SCH (09:00)
[2020-08-31] MEDS: LIDOCAINE 5% (LIDODERM) PATCH TD SCH (09:00)
[2020-08-31] MEDS: MAGIC MOUTHWASH SUSPENSION BTL SSP SCH ×4 (09:00→20:33)
[2020-08-31] MEDS: PANTOPRAZOLE 40MG TAB (PROTONIX) PO SCH (09:01)
[2020-08-31] MEDS: HEPARIN SOD (PORCINE) 5000UNITS/ML 1ML VIAL/SYRINGE SC SCH ×2 (09:01→20:33)
[2020-08-31] MEDS: ASPIRIN 81MG ENTERIC TABLET PO SCH (09:01)
[2020-08-31] MEDS: CARVedilol 6.25 MG TAB PO SCH ×2 (09:02→20:33)
[2020-08-31] MEDS: hydroCHLOROthiazide 12.5 MG CAPSULE PO SCH (09:02)
[2020-08-31] MEDS: TAMSULOSIN 0.4 MG CAP PO SCH (09:02)
[2020-08-31] MEDS: ATORVASTATIN 20 MG TAB PO SCH (09:02)
[2020-08-31] MEDS: SODIUM CHLORIDE NASAL 0.65% SPRAY BTL (OCEAN) SCH ×3 (09:03→20:34)
[2020-08-31] MEDS: REMEDY PHYTOPLEX Z-GUARD PASTE 113GM TUBE (FROM STOREROOM PRODUCT) TOP SCH ×3 (09:03→20:35)
[2020-08-31] MEDS: FLUTICASONE PROP 0.05% NASAL SPRAY 16 GM (FLONASE) NARES SCH ×2 (09:03→20:34)
[2020-08-31] MEDS: guaiFENesin 200 MG TAB PO SCH ×3 (09:03→20:33)
[2020-08-31] MEDS: CLOPIDOGREL 75 MG TAB PO SCH (09:03)
[2020-08-31 14:00] VITALS: BP 137/63
[2020-08-31] MEDS: **NOTE PATIENT COMMENT** MISC XX SCH (20:36)
[2020-08-31 21:40] VITALS: BP 134/64
[2020-09-01] MEDS: **hydrALAZINE HCL** 25 MG TAB PO SCH ×2 (05:22→11:58)
[2020-09-01 06:12] VITALS: BP 145/63
[2020-09-01] MEDS: BUDESONIDE 180MCG INHALER (PULMICORT FLEXHALER) INH SCH (07:31)
[2020-09-01] MEDS: COMBIVENT RESPIMAT 100-20MCG INHALER 4GM INH SCH ×2 (07:31→13:06)
[2020-09-01] MEDS: ASPIRIN 81MG ENTERIC TABLET PO SCH (08:53)
[2020-09-01] MEDS: CLOPIDOGREL 75 MG TAB PO SCH (08:54)
[2020-09-01] MEDS: CARVedilol 6.25 MG TAB PO SCH (08:54)
[2020-09-01] MEDS: hydroCHLOROthiazide 12.5 MG CAPSULE PO SCH (08:54)
[2020-09-01] MEDS: ATORVASTATIN 20 MG TAB PO SCH (08:55)
[2020-09-01] MEDS: TAMSULOSIN 0.4 MG CAP PO SCH (08:55)
[2020-09-01] MEDS: PANTOPRAZOLE 40MG TAB (PROTONIX) PO SCH (08:55)
[2020-09-01] MEDS: guaiFENesin 200 MG TAB PO SCH (08:55)
[2020-09-01] MEDS: METAMUCIL (PSYLLIUM) PACKET PO SCH (08:56)
[2020-09-01] MEDS: FLUTICASONE PROP 0.05% NASAL SPRAY 16 GM (FLONASE) NARES SCH (08:56)
[2020-09-01] MEDS: MAGIC MOUTHWASH SUSPENSION BTL SSP SCH ×2 (08:56→12:01)
[2020-09-01] MEDS: SALIVA SUBSTITUTE(MOUTHKOTE) BTL MT SCH ×2 (08:56→12:01)
[2020-09-01] MEDS: HEPARIN SOD (PORCINE) 5000UNITS/ML 1ML VIAL/SYRINGE SC SCH (08:57)
[2020-09-01] MEDS: SODIUM CHLORIDE NASAL 0.65% SPRAY BTL (OCEAN) SCH (08:57)
[2020-09-01] MEDS: LIDOCAINE 5% (LIDODERM) PATCH TD SCH (08:58)
[2020-09-01] MEDS: REMEDY PHYTOPLEX Z-GUARD PASTE 113GM TUBE (FROM STOREROOM PRODUCT) TOP SCH (08:59)
--- NOTE | 2020-09-01 10:43 | IPNPDOC ---
Text Note Date of Service The patient was seen on 09/01/20. NOTE Patient was seen and examined. No overnight events. Continues to participate in therapy. PHYSICAL EXAMINATION: GENERAL: Comfortable, in no apparent distress. HEENT: Left-sided facial droop, EOMI, sclera clear. NECK: Supple., No neck masses RESPIRATORY: Lungs clear to auscultation bilaterally, no rales, wheeze or rhonchi. CARDIOVASCULAR: Regular rate and rhythm. ABDOMEN: Soft, nontender, no guarding or rebound tenderness. Normal bowel sounds. MUSCLE SKELETAL: Left upper extremity is weaker than right. NEUROLOGICAL: CN 312 grossly intact except for left facial droop PSYCHOLOGICAL: Normal mood and affect LABORATORY DATA: Reviewed ASSESSMENT/PLAN: Mr. Nicholas is an 85-year-old male with hypertension and diabetes mellitus who initially presented to [facility] for right MCA stroke and transferred here for rehabilitation. Patient has residual left-sided weakness and left facial droop. When I saw patient, he is in good spirits. Denies any fever or chills, chest pain, abdominal pain, diarrhea, or dysuria. He does report having a cough with thin liquids. It's better when he takes thickened liquids. He uses an acapella which helps him clear sputum. 1. Right MCA stroke with residual left-sided weakness and left facial droop: Currently the patient is on high intensity, statin, aspirin and Plavix. Continue rehabilitation as per ARU. EKG , echo reviewed. 2. Left-sided facial droop and dysphagia: Continue aspiration precautions and dysphagia diet. Speech therapy also has been following. Continue rehabilitation. 3. Possible left lower infiltrate: The patient has been on Levaquin and will receive a total of 7 days. Infectious disease also has given the recommendations. Continue aspiration precautions. CT scan reviewed. 4. Hypertension: Continue Coreg, amlodipine. Hydrochlorothiazide. Blood pressure in 130s. 5. BPH: Continue tamsulosin 6. Diabetes mellitus: Continue sliding scale insulin. DVT prophylaxis with heparin Disposition as per primary. VS,Fishbone, I+O VS, Fishbone, I+O Vital Signs Date Time Temp Pulse Resp B/P (MAP) Pulse Ox O2 Delivery O2 Flow Rate FiO2 09/01/20 08:54 77 145/63 09/01/20 06:12 97.1 18 95 Room Air I&O- Last 24 Hours up to 6 AM 09/01/20 06:00 Intake Total 780 ml Balance 780 ml ASHLYN NGO MD Sep 01, 2020 10:43
[2020-09-01] MEDS ORDERED: ATOR80TA59 PO (11:22)
[2020-09-01] MEDS ORDERED: CLOP75TA2 PO (11:22)
[2020-09-01] MEDS ORDERED: HYDR12CA PO (11:22)
[2020-09-01] MEDS ORDERED: BACI1CAP4 PO (11:22)
[2020-09-01] MEDS ORDERED: AMLO1TAB25 PO (11:22)
[2020-09-01] MEDS ORDERED: FLUTISP NARES (11:22)
[2020-09-01] MEDS ORDERED: D31000TA2 PO (11:22)
[2020-09-01] MEDS ORDERED: PANT40TA29 PO (11:22)
[2020-09-01] MEDS ORDERED: ASPI1CHW3 PO (11:22)
[2020-09-01] MEDS ORDERED: LEVO750T13 PO (11:22)
[2020-09-01] MEDS ORDERED: CARV6.25 PO (11:22)
[2020-09-01] MEDS ORDERED: HYDR25TA PO (11:22)
[2020-09-01] MEDS ORDERED: FLOM0.4C39 PO (11:22)
[2020-09-01 11:58] VITALS: BP 128/64
== END 2020-09-01 14:00 | disposition home health service (06) | DRG 57 ==
LOC: M PM&R 15:57
PROVIDERS: ADMIT Physical Medicine & Rehabilitation; ATTEND Physical Medicine & Rehabilitation
DX: I69.354 Hemiplegia and hemiparesis following cerebral infarction affecting left non-dominant side (principal); I10 Essential (primary) hypertension; E11.9 Type 2 diabetes mellitus without complications; N40.0 Benign prostatic hyperplasia without lower urinary tract symptoms; Z74.09 Other reduced mobility; Z74.1 Need for assistance with personal care; I69.391 Dysphagia following cerebral infarction; R13.10 Dysphagia, unspecified; E78.5 Hyperlipidemia, unspecified; Z87.891 Personal history of nicotine dependence; Z79.82 Long term (current) use of aspirin; Z79.02 Long term (current) use of antithrombotics/antiplatelets; Z79.84 Long term (current) use of oral hypoglycemic drugs; Z79.899 Other long term (current) drug therapy; Z88.6 Allergy status to analgesic agent

== ENCOUNTER 2020-11-30 17:23 | Emergency (ER) | payer MEDICARE ==
[~2020-11-30] VITALS: Ht 177.8 cm; Wt 89.5 kg
[~2020-11-30 17:23] MED LIST changes: +ACET-910 PO; +ASPI1CHW3 PO; +ATOR80TA59 PO; +BACI1CAP4 PO; +CARV6.25 PO; +CLOP75TA2 PO; +D31000TA2 PO; +ENOX40IN3 SC; +FLUTISP NARES; +HYDR12CA PO; +HYDR25TA PO; +PANT40TA29 PO; +TAMS1CAP17 PO
--- NOTE | 2020-11-30 18:34 | REP ---
INDICATION: injury. COMPARISON: None TECHNIQUE: Four views FINDINGS: There is a joint effusion. There is no evidence of a fracture. IMPRESSION: Joint effusion but no evidence of a fracture. Occult radial head fracture cannot be ruled out. <Electronically signed by Tr Vilallobos > 11/30/20 [id number]
[2020-11-30 21:57] VITALS: BP 135/64
== END 2020-11-30 21:59 | disposition home or self-care (01) ==
LOC: M ED 17:23
DX: S50.01XA Contusion of right elbow, initial encounter (principal); W23.1XXA Caught, crushed, jammed, or pinched between stationary objects, initial encounter; Y92.099 Unspecified place in other non-institutional residence as the place of occurrence of the external cause; Y93.9 Activity, unspecified; Y99.9 Unspecified external cause status; I10 Essential (primary) hypertension; K21.9 Gastro-esophageal reflux disease without esophagitis; N40.0 Benign prostatic hyperplasia without lower urinary tract symptoms

== ENCOUNTER → 2020-12-09 | Outpatient (CLI) | payer MEDICARE ==
--- NOTE | 2020-12-09 12:26 | REP ---
INDICATION: COUGH, SOB, WHEEZING COMPARISON: 08/21/2020 TECHNIQUE: PA and lateral. FINDINGS: The mediastinum and cardiac silhouette are normal. The lung powers demonstrate stable chronic changes with superimposed right middle lobe and left basilar atelectasis. 1.3 cm rounded density in the right mid lung zone midclavicular line consistent with right upper lobe lung mass. The skeletal structures are intact and normal. IMPRESSION: Chronic changes with suspected right middle lobe and left basilar atelectasis warrants correlation. 1.3 cm round lesion in the right midlung zone consistent with lung mass identified on CT dated 08/29/2020. <Electronically signed by Jb Duran > 12/09/20 1225
== END ==
LOC: M ADAMS 11:40
PROVIDERS: ATTEND Nurse Practitioner Family
DX: R05.9 Cough, unspecified (principal); R06.02 Shortness of breath; R06.2 Wheezing; R91.8 Other nonspecific abnormal finding of lung field

== ENCOUNTER → 2021-08-12 | Outpatient (REF) | payer MEDICARE ==
[~2021-08-12] MED LIST changes: -D31000TA2 PO; +VITA100093 PO
[2021-08-12 16:58] LABS: ALBUMIN 3.7 GM/DL (3.2-5.2); BILIRUBIN,TOTAL 0.6 MG/DL (0.2-1.0); CALCIUM LEVEL 9.2 MG/DL (8.8-10.2); CREATININE FOR GFR 1.59 MG/DL (0.70-1.30); FREE T4 0.92 NG/DL (0.76-1.46); GLOMERULAR FILTRATION RATE 44.1 (>35); POTASSIUM SERUM 4.2 MEQ/L (3.5-5.1); THYROID STIMULATING HORMONE 2.95 uIU/ML (0.358-3.740); TOTAL PROTEIN 6.6 GM/DL (6.4-8.2)
[2021-08-12 17:06] LABS: HEMOGLOBIN A1c 5.9 %
== END ==
LOC: M SFHCADAM 11:07
PROVIDERS: ATTEND Family Medicine
DX: E11.69 Type 2 diabetes mellitus with other specified complication (principal); I10 Essential (primary) hypertension; E66.9 Obesity, unspecified

== ENCOUNTER → 2021-09-21 | Outpatient (CLI) | payer MEDICARE | LOC: M CARPUL 10:36 | PROVIDERS: ATTEND Family Medicine | DX: I35.0 Nonrheumatic aortic (valve) stenosis (principal) ==

== ENCOUNTER → 2022-01-12 | Outpatient (REF) | payer MEDICARE ==
[~2022-01-12] MED LIST changes: +LEVO1TAB40 PO; -LEVO750T13 PO
[2022-01-12 17:05] LABS: ALBUMIN 3.6 GM/DL (3.2-5.2); BILIRUBIN,TOTAL 0.7 MG/DL (0.2-1.0); CALCIUM LEVEL 9.1 MG/DL (8.8-10.2); CREATININE FOR GFR 1.69 MG/DL (0.70-1.30); GLOMERULAR FILTRATION RATE 41.1 (>35); POTASSIUM SERUM 4.5 MEQ/L (3.5-5.1); TOTAL PROTEIN 6.9 GM/DL (6.4-8.2)
[2022-01-12 20:26] LABS: HEMOGLOBIN A1c 5.5 %
== END ==
LOC: M SFHCADAM 13:29
PROVIDERS: ATTEND Family Medicine
DX: E11.69 Type 2 diabetes mellitus with other specified complication (principal)

== ENCOUNTER → 2022-06-15 | Outpatient (REF) | payer MEDICARE, OTHER ==
[~2022-06-15] MED LIST changes: +ASPI-655 PO; -ASPI1CHW3 PO; +FLUT50SP17 NARES; -FLUTISP NARES
== END ==
LOC: M SFHCDERM 17:45
PROVIDERS: ATTEND Nurse Practitioner Family
DX: C44.319 Basal cell carcinoma of skin of other parts of face (principal)

== ENCOUNTER → 2022-07-30 | Outpatient (REF) | payer OTHER ==
[2022-07-30 17:23] LABS: BASO # 0.1 10^3/uL (0.0-0.2); BASO % 1.2 % (0.0-1.0); EOS # 0.9 10^3/uL (0.0-0.5); EOS % 10.1 % (0.0-3.0); HEMATOCRIT 42.6 % (42.0-52.0); LYMPH # 1.6 10^3/uL (1.5-5.0); LYMPH % 18.4 % (24.0-44.0); MEAN CORPUSCULAR HEMOGLOBIN 30.4 pg (27.0-33.0); MEAN CORPUSCULAR HGB CONC 32.9 g/dl (32.0-36.5); MEAN CORPUSCULAR VOLUME 92.4 fl (80.0-96.0); MONO # 0.8 10^3/uL (0.0-0.8); MONO % 8.7 % (2.0-8.0); NEUTROPHILS # 5.3 10^3/uL (1.5-8.5); NEUTROPHILS % 61.3 % (36.0-66.0); PLATELET COUNT, AUTOMATED 205 10^3/uL (150-450); RED BLOOD COUNT 4.61 10^6/uL (4.30-6.10); WHITE BLOOD COUNT 8.6 10^3/uL (4.0-10.0)
[2022-07-30 17:33] LABS: ALBUMIN 3.4 G/DL (3.2-5.2); BILIRUBIN,TOTAL 0.8 MG/DL (0.3-1.2); CALCIUM LEVEL 8.9 MG/DL (8.3-10.6); CREATININE FOR GFR 1.43 MG/DL (0.70-1.30); GLOMERULAR FILTRATION RATE 49.7 (>35); POTASSIUM SERUM 4.9 MMOL/L (3.5-5.1); TOTAL PROTEIN 6.1 G/DL (5.7-8.2)
[2022-07-30 17:55] LABS: HEMOGLOBIN A1c 5.8 % (4.0-6.0)
== END ==
LOC: M SFHCADAM 13:00
PROVIDERS: ATTEND Family Medicine
DX: E11.69 Type 2 diabetes mellitus with other specified complication (principal); N18.32 Chronic kidney disease, stage 3b

== ENCOUNTER → 2022-08-11 | Outpatient (REF) | payer OTHER | LOC: M SFHCADAM 12:42 | PROVIDERS: ATTEND Physician Assistant Medical | DX: L02.222 Furuncle of back [any part, except buttock and flank] (principal) ==

== ENCOUNTER → 2022-08-20 | Outpatient (CLI) | payer OTHER | LOC: M SOG 08:51 | PROVIDERS: ATTEND Orthopaedic Surgery | DX: M25.561 Pain in right knee (principal); Z53.9 Procedure and treatment not carried out, unspecified reason ==

== ENCOUNTER → 2023-02-14 | Outpatient (REF) | payer OTHER ==
[~2023-02-14] MED LIST changes: -FLUT50SP17 NARES; +FLUTISP NARES
[2023-02-14 17:28] LABS: ALBUMIN 3.4 G/DL (3.2-5.2); BILIRUBIN,TOTAL 0.6 MG/DL (0.3-1.2); CALCIUM LEVEL 8.6 MG/DL (8.3-10.6); CREATININE FOR GFR 1.39 MG/DL (0.70-1.30); GLOMERULAR FILTRATION RATE 51.3 (>35); POTASSIUM SERUM 4.9 MMOL/L (3.5-5.1); TOTAL PROTEIN 6.2 G/DL (5.7-8.2)
[2023-02-14 17:46] LABS: HEMOGLOBIN A1c 5.5 % (4.0-6.0)
== END ==
LOC: M SFHCADAM 13:09
PROVIDERS: ATTEND Family Medicine
DX: E11.69 Type 2 diabetes mellitus with other specified complication (principal)

== ENCOUNTER → 2023-02-22 | Outpatient (CLI) | payer OTHER ==
[2023-02-22 14:30] LABS: BASO # 0.1 10^3/uL (0.0-0.2); EOS # 0.8 10^3/uL (0.0-0.5); EOS % 9.7 % (0.0-3.0); HEMATOCRIT 41.5 % (42.0-52.0); HEMOGLOBIN 13.9 g/dl (13.5-17.5); LYMPH % 13.3 % (24.0-44.0); MEAN CORPUSCULAR HEMOGLOBIN 30.5 pg (27.0-33.0); MEAN CORPUSCULAR HGB CONC 33.5 g/dl (32.0-36.5); MONO # 0.8 10^3/uL (0.0-0.8); MONO % 10.8 % (2.0-8.0); NEUTROPHILS % 64.9 % (36.0-66.0); PLATELET COUNT, AUTOMATED 196 10^3/uL (150-450); RED BLOOD COUNT 4.56 10^6/uL (4.30-6.10); WHITE BLOOD COUNT 7.8 10^3/uL (4.0-10.0)
[2023-02-22 14:55] LABS: CALCIUM LEVEL 8.5 MG/DL (8.3-10.6); CREATININE FOR GFR 1.38 MG/DL (0.70-1.30); GLOMERULAR FILTRATION RATE 51.8 (>35); POTASSIUM SERUM 4.4 MMOL/L (3.5-5.1)
== END ==
LOC: M PLALAB 11:19
PROVIDERS: ATTEND Internal Medicine Cardiovascular Disease
DX: I50.32 Chronic diastolic (congestive) heart failure (principal); I35.0 Nonrheumatic aortic (valve) stenosis

== ENCOUNTER → 2023-05-23 | Outpatient (CLI) | payer OTHER ==
[~2023-05-23] MED LIST changes: -HYDR25TA PO; +HYDR25TA88 PO
== END ==
LOC: M PLARAD 10:49
PROVIDERS: ATTEND Family Medicine
DX: R91.1 Solitary pulmonary nodule (principal); D40.0 Neoplasm of uncertain behavior of prostate; D48.0 Neoplasm of uncertain behavior of bone and articular cartilage
CPT/HCPCS: 78815; A9552

== ENCOUNTER → 2023-05-25 | Outpatient (REF) | payer OTHER ==
[2023-05-25 18:16] LABS: BASO # 0.1 10^3/uL (0.0-0.2); BASO % 1.4 % (0.0-1.0); EOS # 0.7 10^3/uL (0.0-0.5); EOS % 11.4 % (0.0-3.0); HEMOGLOBIN 13.6 g/dl (13.5-17.5); LYMPH # 1.1 10^3/uL (1.5-5.0); LYMPH % 18.6 % (24.0-44.0); MEAN CORPUSCULAR HEMOGLOBIN 29.5 pg (27.0-33.0); MEAN CORPUSCULAR HGB CONC 33.2 g/dl (32.0-36.5); MEAN CORPUSCULAR VOLUME 88.9 fl (80.0-96.0); MONO # 0.6 10^3/uL (0.0-0.8); MONO % 10.4 % (2.0-8.0); NEUTROPHILS # 3.4 10^3/uL (1.5-8.5); NEUTROPHILS % 57.9 % (36.0-66.0); PLATELET COUNT, AUTOMATED 248 10^3/uL (150-450); RED BLOOD COUNT 4.61 10^6/uL (4.30-6.10); WHITE BLOOD COUNT 5.9 10^3/uL (4.0-10.0)
[2023-05-25 18:40] LABS: ALBUMIN 3.4 G/DL (3.2-5.2); BILIRUBIN,TOTAL 0.5 MG/DL (0.3-1.2); CALCIUM LEVEL 8.7 MG/DL (8.3-10.6); CREATININE FOR GFR 1.25 MG/DL (0.70-1.30); POTASSIUM SERUM 4.6 MMOL/L (3.5-5.1); TOTAL PROTEIN 6.4 G/DL (5.7-8.2)
== END ==
LOC: M SFHCADAM 16:38
PROVIDERS: ATTEND Family Medicine
DX: N42.89 Other specified disorders of prostate (principal); M89.9 Disorder of bone, unspecified; R97.20 Elevated prostate specific antigen [PSA]; Z79.899 Other long term (current) drug therapy; Z79.82 Long term (current) use of aspirin; Z88.1 Allergy status to other antibiotic agents

== ENCOUNTER → 2023-06-17 | Outpatient (REF) | payer OTHER ==
[~2023-06-17] MED LIST changes: +BICA50TA9 PO
== END ==
LOC: M SMT PRO 13:03
PROVIDERS: ATTEND Urology
DX: C61 Malignant neoplasm of prostate (principal); N40.0 Benign prostatic hyperplasia without lower urinary tract symptoms; R97.20 Elevated prostate specific antigen [PSA]; Z79.899 Other long term (current) drug therapy; Z79.82 Long term (current) use of aspirin; Z88.1 Allergy status to other antibiotic agents

== ENCOUNTER → 2023-08-31 | Outpatient (REF) | payer OTHER ==
[~2023-08-31] MED LIST changes: +BICA50TA4; +BICA50TA4 PO; -BICA50TA9 PO
== END ==
LOC: M SFHCDERM 12:32
PROVIDERS: ATTEND Physician Assistant
DX: D48.9 Neoplasm of uncertain behavior, unspecified (principal)

== ENCOUNTER → 2024-04-10 | Outpatient (REF) | payer OTHER, MEDICARE ==
[~2024-04-10] MED LIST changes: +ABIR250T PO; +PRED5PAK2 PO
== END ==
LOC: M SFHCDERM 17:26
PROVIDERS: ATTEND Dermatology
DX: C44.319 Basal cell carcinoma of skin of other parts of face (principal); D04.39 Carcinoma in situ of skin of other parts of face

== ENCOUNTER → 2024-05-23 | Outpatient (CLI) | payer MEDICARE ==
[~2024-05-23] MED LIST changes: -ABIR250T PO; +ABIR250T2 PO
== END ==
LOC: M RAD 10:02
PROVIDERS: ATTEND Family Medicine
DX: R63.5 Abnormal weight gain (principal)

== ENCOUNTER → 2024-06-22 | Outpatient (CLI) | payer MEDICARE ==
[~2024-06-22] MED LIST changes: +ALBU8.5H INH; +ATOR40TA75 PO; +D3 S20002 PO; +FINA5TAB2 PO; +HYDR12.55 PO; +HYDR25TA87 PO
== END ==
LOC: M ADAMS 10:57
PROVIDERS: ATTEND Physician Assistant Medical
DX: M17.11 Unilateral primary osteoarthritis, right knee (principal)

== ENCOUNTER → 2024-06-25 | Outpatient (CLI) | payer MEDICARE | LOC: M WUC 11:50 | PROVIDERS: ATTEND Student in an Organized Health Care Education/Training Program | DX: R06.02 Shortness of breath (principal); J98.11 Atelectasis ==

== ENCOUNTER 2024-06-26 10:00 | Inpatient (IN) | payer MEDICARE ==
[~2024-06-26] VITALS: Ht 175.3 cm; Wt 98.4 kg
[~2024-06-26 10:00] MED LIST changes: -ALBU8.5H INH; -ATOR40TA75 PO; -D3 S20002 PO; -FINA5TAB2 PO; -FLOM0.4C39 PO; -HYDR12.55 PO; -HYDR25TA87 PO; +TAMS-18 PO
[2024-06-26 10:21] LABS: VENOUS BASE EXCESS -0.6 (-2.0-2.0); VENOUS HCO3 28.1 MMOL/L (23.0-27.0); VENOUS O2 SATURATION 97.7 % (60.0-80.0); VENOUS PARTIAL PRESSURE CO2 64.1 mmHg (38.0-50.0); VENOUS PARTIAL PRESSURE O2 110.8 mmHg (30.0-50.0); VENOUS TOTAL CO2 30.1 MMOL/L (24.0-28.0)
[2024-06-26 10:32] LABS: BASO # 0.2 10^3/uL (0.0-0.2); BASO % 1.4 % (0.0-1.0); EOS # 1.9 10^3/uL (0.0-0.5); EOS % 18.6 % (0.0-3.0); HEMATOCRIT 44.6 % (42.0-52.0); HEMOGLOBIN 14.7 g/dl (13.5-17.5); LYMPH % 19.2 % (24.0-44.0); MEAN CORPUSCULAR HEMOGLOBIN 30.9 pg (27.0-33.0); MEAN CORPUSCULAR VOLUME 93.9 fl (80.0-96.0); MONO # 0.8 10^3/uL (0.0-0.8); MONO % 7.7 % (2.0-8.0); NEUTROPHILS # 5.4 10^3/uL (1.5-8.5); NEUTROPHILS % 52.5 % (36.0-66.0); PLATELET COUNT, AUTOMATED 225 10^3/uL (150-450); RED BLOOD COUNT 4.75 10^6/uL (4.30-6.10); WHITE BLOOD COUNT 10.4 10^3/uL (4.0-10.0)
[2024-06-26 10:58] LABS: ALBUMIN 3.7 G/DL (3.2-5.2); BILIRUBIN,DIRECT 0.3 MG/DL (<0.4); BILIRUBIN,TOTAL 0.7 MG/DL (0.3-1.2); CALCIUM LEVEL 8.5 MG/DL (8.3-10.6); CREATININE FOR GFR 1.1 MG/DL (0.70-1.30); GLOMERULAR FILTRATION RATE 64.2 (>35); POTASSIUM SERUM 3.7 MMOL/L (3.5-5.1); TOTAL PROTEIN 6.8 G/DL (5.7-8.2)
[2024-06-26 11:00] LABS: THYROID STIMULATING HORMONE 5.46 uIU/ML (0.55-4.78)
[2024-06-26] MEDS ORDERED: ISOVUE-370 76% 100ML VIAL As Ordered ONE (11:01)
[2024-06-26] MEDS ORDERED: IPRATROPIUM 0.5MG/ALBUTEROL 2.5MG INH SOL UD 3ML As Ordered ONE (12:23)
[2024-06-26] MEDS: IPRATROPIUM 0.5MG/ALBUTEROL 2.5MG INH SOL UD 3ML NEB ONE ×2 (12:32→13:15)
[2024-06-26] MEDS: cefTRIAXone SOD 1 GM in DEXTROSE 5% (D5W) ADV/MINI-BAG 50 ML IV ONE (12:33)
[2024-06-26] MEDS ORDERED: ATOR40TA75 PO (13:49)
[2024-06-26] MEDS ORDERED: CARV6.25 PO (13:51)
[2024-06-26] MEDS ORDERED: D3 S20002 PO (13:52)
[2024-06-26] MEDS ORDERED: HYDR25TA87 PO (13:53)
[2024-06-26] MEDS ORDERED: HYDR12.55 PO (13:54)
[2024-06-26] MEDS ORDERED: FINA5TAB2 PO (13:57)
[2024-06-26] MEDS ORDERED: ALBU8.5H INH (13:59)
[2024-06-26] MEDS ORDERED: HOME MED LIST COMPLETE! XX SCH (14:00)
[2024-06-26] MEDS ORDERED: IPRATROPIUM 0.5MG/ALBUTEROL 2.5MG INH SOL UD 3ML NEB PRN (14:25)
[2024-06-26] MEDS ORDERED: ACETAMINOPHEN 325 MG TAB PO PRN (14:25)
[2024-06-26] MEDS ORDERED: ALBUTEROL 90 MCG/ACT 8GM HFA INHALER INH SCH (14:35)
[2024-06-26] MEDS ORDERED: DEXTROSE 50% 50ML SYRINGE IV PRN (14:45)
[2024-06-26] MEDS ORDERED: GLUCAGON INJ 1MG VIAL SC PRN (14:45)
[2024-06-26] MEDS ORDERED: GLUCOSE 4 GM CHEW PO PRN (14:45)
[2024-06-26] MEDS: IPRATROPIUM 0.5MG/ALBUTEROL 2.5MG INH SOL UD 3ML NEB SCH (15:28)
[2024-06-26] MEDS: AZITHROMYCIN 250MG TABLET PO SCH (15:37)
[2024-06-26] MEDS: **hydrALAZINE HCL** 25 MG TAB PO SCH (15:37)
[2024-06-26 16:19] LABS: HEMOGLOBIN A1c 5.7 % (4.0-6.0)
[2024-06-26] MEDS: hydroCHLOROthiazide 12.5 MG CAPSULE PO SCH (16:44)
[2024-06-26] MEDS: ASPIRIN 81MG ENTERIC TABLET PO SCH (16:44)
[2024-06-26] MEDS: TAMSULOSIN 0.4 MG CAP PO SCH (16:44)
[2024-06-26] MEDS: ATORVASTATIN 20 MG TAB PO SCH (16:45)
[2024-06-26] MEDS: FINASTERIDE 5MG TAB PO SCH (16:45)
[2024-06-26] MEDS: methylPREDNISolone 125MG 2ML VIAL IV ONE (16:45)
[2024-06-26 17:05] LABS: VENOUS BASE EXCESS 2.6 (-2.0-2.0); VENOUS HCO3 30.7 MMOL/L (23.0-27.0); VENOUS O2 SATURATION 98.8 % (60.0-80.0); VENOUS PARTIAL PRESSURE CO2 62.7 mmHg (38.0-50.0); VENOUS PARTIAL PRESSURE O2 185.4 mmHg (30.0-50.0); VENOUS PH 7.308 UNITS (7.330-7.430); VENOUS STANDARD HCO3 26.8 MMOL/L; VENOUS TOTAL CO2 32.6 MMOL/L (24.0-28.0)
[2024-06-26 17:19] VITALS: BP 189/76; TEMP 97.5; O2SAT 92
[2024-06-26] MEDS: INSULIN LISPRO (NovoLOG) PER UNIT SC SCH ×2 (17:30→21:00)
[2024-06-26] MEDS: FUROSEMIDE 40MG/4ML VIAL IV ONE (17:34)
[2024-06-26 19:29] VITALS: BP 158/79; TEMP 97; O2SAT 96
[2024-06-26] MEDS: FORMOTEROL FUMARATE 20 MCG/2 ML INHALATION SOLUTION (PERFOROMIST) INH SCH (19:37)
[2024-06-26] MEDS: GLYCOPYRROLATE INJ 0.2 MG/ML 2 ML VIAL NEB SCH (19:38)
[2024-06-26 20:00] VITALS: BP 128/58; TEMP 97.3; O2SAT 92
[2024-06-26 20:47] VITALS: BP 151/65; TEMP 97.2; O2SAT 96
[2024-06-26] MEDS: CARVedilol 6.25 MG TAB PO SCH (21:27)
[2024-06-26 23:27] VITALS: BP 142/63; TEMP 96.8; O2SAT 98
[2024-06-27] VITALS (8 sets, daily range): BP systolic 104–153; BP diastolic 51–69; TEMP 97.2–98.9; O2SAT 96–97
[2024-06-27 04:31] LABS: VENOUS BASE EXCESS 0.4 (-2.0-2.0); VENOUS HCO3 24.9 MMOL/L (23.0-27.0); VENOUS PARTIAL PRESSURE CO2 39.9 mmHg (38.0-50.0); VENOUS PARTIAL PRESSURE O2 148.7 mmHg (30.0-50.0); VENOUS PH 7.413 UNITS (7.330-7.430); VENOUS STANDARD HCO3 24.8 MMOL/L; VENOUS TOTAL CO2 26.1 MMOL/L (24.0-28.0)
[2024-06-27 04:43] LABS: HEMATOCRIT 38.6 % (42.0-52.0); HEMOGLOBIN 12.8 g/dl (13.5-17.5); MEAN CORPUSCULAR HGB CONC 33.2 g/dl (32.0-36.5); MEAN CORPUSCULAR VOLUME 93.5 fl (80.0-96.0); PLATELET COUNT, AUTOMATED 192 10^3/uL (150-450); RED BLOOD COUNT 4.13 10^6/uL (4.30-6.10); WHITE BLOOD COUNT 7.1 10^3/uL (4.0-10.0)
[2024-06-27 05:18] LABS: PROCALCITONIN 0.12 ng/ml
[2024-06-27 05:24] LABS: BILIRUBIN,TOTAL 0.3 MG/DL (0.3-1.2); CALCIUM LEVEL 7.6 MG/DL (8.3-10.6); CREATININE FOR GFR 1.41 MG/DL (0.70-1.30); GLOMERULAR FILTRATION RATE 47.6 (>35); MAGNESIUM LEVEL 2.3 MG/DL (1.8-2.4); POTASSIUM SERUM 3.2 MMOL/L (3.5-5.1); TOTAL PROTEIN 5.8 G/DL (5.7-8.2)
[2024-06-27] MEDS: ENOXAPARIN 40MG/0.4ML SYRINGE (J1650 PER 10MG) SC SCH (09:25)
[2024-06-27] MEDS: POTASSIUM CHLORIDE 10MEQ SR TABLET PO SCH (09:27)
[2024-06-27] MEDS: cefTRIAXone SOD 1 GM in DEXTROSE 5% (D5W) ADV/MINI-BAG 50 ML IV SCH (14:21)
[2024-06-28] VITALS (27 sets, daily range): BP systolic 140–162; BP diastolic 63–110; TEMP 97–98.2; O2SAT 91–99
[2024-06-28 06:02] LABS: BASO # 0.1 10^3/uL (0.0-0.2); BASO % 0.6 % (0.0-1.0); EOS # 0.6 10^3/uL (0.0-0.5); EOS % 5.6 % (0.0-3.0); HEMATOCRIT 38.2 % (42.0-52.0); HEMOGLOBIN 12.6 g/dl (13.5-17.5); LYMPH # 1.5 10^3/uL (1.5-5.0); MEAN CORPUSCULAR VOLUME 94.1 fl (80.0-96.0); MONO # 0.9 10^3/uL (0.0-0.8); MONO % 8.2 % (2.0-8.0); NEUTROPHILS # 7.5 10^3/uL (1.5-8.5); PLATELET COUNT, AUTOMATED 183 10^3/uL (150-450); RED BLOOD COUNT 4.06 10^6/uL (4.30-6.10); WHITE BLOOD COUNT 10.6 10^3/uL (4.0-10.0)
[2024-06-28 06:49] LABS: ALBUMIN 3.1 G/DL (3.2-5.2); BILIRUBIN,TOTAL 0.3 MG/DL (0.3-1.2); CALCIUM LEVEL 7.3 MG/DL (8.3-10.6); CREATININE FOR GFR 1.42 MG/DL (0.70-1.30); GLOMERULAR FILTRATION RATE 47.2 (>35); TOTAL PROTEIN 5.7 G/DL (5.7-8.2)
[2024-06-28] MEDS: HYDROCORTISONE 1% CREAM 30GM TOP ONE (13:14)
[2024-06-29] VITALS (34 sets, daily range): BP systolic 135–190; BP diastolic 65–98; TEMP 97.2–98.2; O2SAT 87–100
[2024-06-29 06:09] LABS: HEMATOCRIT 39.5 % (42.0-52.0); HEMOGLOBIN 13.1 g/dl (13.5-17.5); MEAN CORPUSCULAR HGB CONC 33.2 g/dl (32.0-36.5); MEAN CORPUSCULAR VOLUME 93.4 fl (80.0-96.0); PLATELET COUNT, AUTOMATED 191 10^3/uL (150-450); RED BLOOD COUNT 4.23 10^6/uL (4.30-6.10); WHITE BLOOD COUNT 10.6 10^3/uL (4.0-10.0)
[2024-06-29] MEDS: NITROGLYCERIN 0.3MG SUBL TAB SL STA (08:05)
[2024-06-29] MEDS: FUROSEMIDE 40MG/4ML VIAL IV ONE (08:22)
[2024-06-29] MEDS: methylPREDNISolone 125MG 2ML VIAL IV SCH (08:22)
[2024-06-29 08:25] LABS: VENOUS BASE EXCESS 3.9 (-2.0-2.0); VENOUS HCO3 29.7 MMOL/L (23.0-27.0); VENOUS O2 SATURATION 96.7 % (60.0-80.0); VENOUS PARTIAL PRESSURE CO2 49.2 mmHg (38.0-50.0); VENOUS PARTIAL PRESSURE O2 89.3 mmHg (30.0-50.0); VENOUS PH 7.399 UNITS (7.330-7.430); VENOUS STANDARD HCO3 27.9 MMOL/L; VENOUS TOTAL CO2 31.2 MMOL/L (24.0-28.0)
[2024-06-29 09:03] LABS: ALBUMIN 3.5 G/DL (3.2-5.2); BILIRUBIN,TOTAL 0.6 MG/DL (0.3-1.2); CALCIUM LEVEL 7.6 MG/DL (8.3-10.6); CREATININE FOR GFR 1.17 MG/DL (0.70-1.30); GLOMERULAR FILTRATION RATE 59.6 (>35); POTASSIUM SERUM 4.1 MMOL/L (3.5-5.1); TOTAL PROTEIN 6.5 G/DL (5.7-8.2)
[2024-06-29] MEDS: MOM 30ML SUSPENSION UDC PO PRN (16:42)
[2024-06-30] VITALS (17 sets, daily range): BP systolic 113–157; BP diastolic 57–74; TEMP 97.1–97.9; O2SAT 89–95
[2024-06-30] MEDS: RAMELTEON 8 MG TAB (ROZEREM) PO ONE (00:08)
[2024-06-30] MEDS: MAALOX 30 ML SUSP *UDC PO PRN (02:13)
[2024-06-30] MEDS ORDERED: SPIR1CAP INH (11:13)
[2024-06-30] MEDS ORDERED: BREAMIS10 MC (11:15)
[2024-06-30] MEDS ORDERED: INCR1INH INH (12:05)
[2024-06-30] MEDS ORDERED: RAMELTEON 8 MG TAB (ROZEREM) PO SCH (21:00)
== END 2024-06-30 13:37 | disposition home health service (06) | DRG 189 ==
LOC: M ED 10:00 → EDBD 10:00 → M ED INP 10:01 → M PCU 17:03 → OBSVTOIN 06-28 14:04
PROVIDERS: ADMIT Student in an Organized Health Care Education/Training Program; ATTEND Student in an Organized Health Care Education/Training Program
DX: J96.21 Acute and chronic respiratory failure with hypoxia (principal); C79.51 Secondary malignant neoplasm of bone; I50.30 Unspecified diastolic (congestive) heart failure; J44.1 Chronic obstructive pulmonary disease with (acute) exacerbation; N17.9 Acute kidney failure, unspecified; I13.0 Hypertensive heart and chronic kidney disease with heart failure and stage 1 through stage 4 chronic kidney disease, or unspecified chronic kidney disease; J44.0 Chronic obstructive pulmonary disease with (acute) lower respiratory infection; J96.22 Acute and chronic respiratory failure with hypercapnia; C61 Malignant neoplasm of prostate; I25.10 Atherosclerotic heart disease of native coronary artery without angina pectoris; H01.006 Unspecified blepharitis left eye, unspecified eyelid; N18.30 Chronic kidney disease, stage 3 unspecified; E11.22 Type 2 diabetes mellitus with diabetic chronic kidney disease; H01.003 Unspecified blepharitis right eye, unspecified eyelid; N13.9 Obstructive and reflux uropathy, unspecified; J20.9 Acute bronchitis, unspecified; R33.9 Retention of urine, unspecified; Z87.891 Personal history of nicotine dependence; Z79.899 Other long term (current) drug therapy; Z79.82 Long term (current) use of aspirin; Z88.6 Allergy status to analgesic agent